=== PATIENT | female | born 1940 | race Caucasian/White ===

== ENCOUNTER 2020-12-11 07:52 | Outpatient (CLI) | payer MEDICARE, SELFPAY ==
--- NOTE | ~2020-12-11 | XR_ITS ---
MODIFIED ESOPHAGRAM HISTORY: Dysphagia. TECHNIQUE: Modified barium esophagram was performed by speech pathologist under radiologist fluorosco pic guidance. This was recorded on tape. The exam was reviewed on 12/11/2020 09:09 CDT. The DAP for this procedure was 1.4 Gycm2. Fluoroscopy time is 2.1 minutes. FINDINGS: Lateral projection of the cervical spine demonstrates normal alignment. There is normal s wallowing function through the oral, pharyngeal and esophageal stage without aspiration or penetratio n.. IMPRESSION: 1: Normal swallowing function without evidence for laryngeal penetration or aspiration. 2: Please refer to speech pathologist report for additional detail. Reviewed, dictated and finalized at location A. IMPRESSION: 1: Normal swallowing function without evidence for laryngeal penetration or asp iration. 2: Please refer to speech pathologist report for additional detail.
--- NOTE | 2020-12-11 09:02 | STOPEVAL ---
MODIFIED BARIUM SWALLOW EVALUATION: Thank you for referring Kristin Townsend to [facility].? Outpatient Past Medical History Past Medical History Source of Past Medical History Patient Respiratory History Hx Asthma Yes Evaluation Information Problem Diagnosis dysphagia Modified Barium Swallow Evaluation Recent Swallowing History Reports Dysphagia Yes: stuff gets caught Onset of Dysphagia several years Duration of Dysphagia it's happened maybe 15 times in 2 years Reported Difficult Consistencies Pills,Solids Intake Method Prior to Swallow Oral Evaluation Diet Prior to Swallow Evaluation Regular, Level 7 Liquid Consistency Prior to Swallow Thin (0) Evaluation Consistency Thin Uncontrolled 2 Method of Presentation Straw Oral Preparatory Symptoms None Oral Phase Symptoms None Pharyngeal Phase Symptoms None Severity of Vallecular Residue None - 0% No Residue Severity of Pyriform Sinus Residue None - 0% No Residue 8 Point Laryngeal Penetration-Aspiration Material Does Not Enter Airway Scale Cervical/Esophageal Symptoms None Solid Consistency Method of Presentation Spoon Oral Preparatory Symptoms None Oral Phase Symptoms None Pharyngeal Phase Symptoms None Severity of Vallecular Residue None - 0% No Residue Severity of Pyriform Sinus Residue None - 0% No Residue 8 Point Laryngeal Penetration-Aspiration Material Does Not Enter Airway Scale Cervical/Esophageal Symptoms None Mixed Consistency Method of Presentation Spoon Oral Preparatory Symptoms None Oral Phase Symptoms None Pharyngeal Phase Symptoms None Severity of Vallecular Residue None - 0% No Residue Severity of Pyriform Sinus Residue None - 0% No Residue 8 Point Laryngeal Penetration-Aspiration Material Does Not Enter Airway Scale Cervical/Esophageal Symptoms None Pureed Consistency Method of Presentation Spoon Oral Preparatory Symptoms None Oral Phase Symptoms None Pharyngeal Phase Symptoms None Severity of Vallecular Residue None - 0% No Residue Severity of Pyriform Sinus Residue None - 0% No Residue 8 Point Laryngeal Penetration-Aspiration Material Does Not Enter Airway Scale Cervical/Esophageal Symptoms None Thin Uncontrolled 1 Method of Presentation Cup Oral Preparatory Symptoms None Oral Phase Symptoms None Pharyngeal Phase Symptoms None Severity of Vallecular Residue None - 0% No Residue Severity of Pyriform Sinus Residue None - 0% No Residue 8 Point Laryngeal Penetration-Aspiration Material Does Not Enter Airway Scale Cervical/Esophageal Symptoms No
== END 2020-12-11 07:53 | disposition home or self-care (01) ==
PROVIDERS: PCP Family Medicine; Visit Provider Otolaryngology
DX: R13.10 Dysphagia, unspecified (principal)
CPT/HCPCS: 92611

== ENCOUNTER 2021-02-05 00:49 | Day surgery (SDC) | payer MEDICARE, SELFPAY ==
[2021-01-22 13:26] VITALS: BMI 26.5
[2021-02-05 09:49] VITALS: BP 168/70; PULSE 83; RESP 20; TEMP 36.2; O2SAT 96; BMI 26.7
[2021-02-05] MEDS: LACTATED RINGERS 1,000 ML 150 ML IV CONT (10:07)
--- NOTE | 2021-02-05 10:12 | WPDANESEPPF ---
Anes - Initial Pre Proc Eval Procedure: Operation Date: 02/05/21 11:00 Proposed Procedures p Esophagogastroduodenoscopy - Fran Donovan MD Date/Time: 02/05/21 10:12 Surgeon: Fran Donovan MD Pre Op Diagnosis: Dysphagia Patient Data Age: 80 Gender: F Height: 1.57 m Weight: 66.3 kg Last Vital Signs Temp 36.2 C L 02/05/21 09:49 Pulse 83 02/05/21 09:49 Resp 20 02/05/21 09:49 BP 168/70 H 02/05/21 09:49 Pulse Ox 96 02/05/21 09:49 Allergies Allergy/AdvReac Type Severity Reaction Status Date / Time kiwi Allergy Unknown Hives Verified 02/05/21 09:47 Penicillins Allergy Unknown Unknown Verified 02/05/21 09:47 Sulfa (Sulfonamide Allergy Unknown Unknown Verified 02/05/21 09:47 Antibiotics) Home Medications Medication Instructions Recorded Confirmed Type montelukast 10 mg tablet 10 mg PO DAILY 09/21/19 01/30/21 History salmeterol 50 mcg/dose blister 1 inhalation INHALATION Q12H 09/21/19 01/30/21 History powder for inhalation tiotropium bromide 18 mcg capsule 1 cap INHALATION DAILY 09/21/19 01/30/21 History with inhalation device fluticasone propionate 44 1 puff INHALATION ONCE 03/17/20 01/30/21 History mcg/actuation HFA aerosol inhaler ibandronate 150 mg tablet See Rx Instructions .ROUTE 09/07/20 01/30/21 Rx .COMPLEX #3 tablet potassium chloride 10 mEq See Rx Instructions .ROUTE 12/02/20 01/30/21 Rx tablet,extended release .COMPLEX #90 tablet albuterol sulfate 90 mcg/actuation 1 inh INHALATION Q4H 01/08/21 01/30/21 History aerosol inhaler tramadol 50 mg tablet 50 mg PO Q6H PRN #20 tablet 01/30/21 01/30/21 Rx hydrochlorothiazide 25 mg tablet See Rx Instructions .ROUTE 02/02/21 Rx .COMPLEX #90 tablet levothyroxine 50 mcg tablet See Rx Instructions .ROUTE 02/02/21 Rx .COMPLEX #90 tablet Patient hx anesthesia problems: none Family hx anesthesia problems: none PMFSH Past Medical History Medical History Essential (primary) hypertension Hyperglycemia Hypokalemia Hypothyroidism, unspecified Mixed hyperlipidemia Postmenopausal Severe persistent asthma without complication Vitamin D deficiency Social History Social History Smoking status: Never smoker Second hand tobacco smoke exposure: No Alcohol intake: never Drinks per week: 20 Alcohol use details: WINE Substance use: never Living arrangements: alone Gender identity (if verbalized by the patient): Female Spiritual care concerns: No Anes - Eval Final PreProcedure Day of Procedure 02/05/21 10:12 Patient weight: overweight Heart: regular rate and rhythm Lungs: clear to auscultation Airway: Mallampati scale class II Neurological: alert and oriented Last oral intake: >/= 8 hours ASA classification: II Emergent: no Anesthetic plan: proceed Anesthesia type and monitoring: general GIVS and standard monitoring Informed Consent: The patient's anesthetic plan and its attendant risks and benefits were discussed with the patient/family/POA. Questions were solicited and answers provided to the satisfaction of the patient/family/POA.
--- NOTE | 2021-02-05 10:22 | WPDHPUPDATE1 ---
History and Physical Update Update Date/Time: 02/05/21 10:22 History and Physical has been reviewed, including an updated exam of the patient. There are NO changes in the patient's condition. Risks, benefits, and alternatives have been discussed and questions answered. Patient agrees to proceed with procedure.
[2021-02-05 11:05] VITALS: BP 127/58; PULSE 74; RESP 20; O2SAT 96
[2021-02-05 11:15] VITALS: BP 137/67; PULSE 68; RESP 14; O2SAT 97
[2021-02-05 11:25] VITALS: BP 149/70; PULSE 73; RESP 19; O2SAT 97
--- NOTE | 2021-02-05 11:34 | SUR.PHASEII ---
Called pt's emergency detail driver Juliana, made aware pt is ready for discharge. Humidifier Maintenance Worker Joan states she will be here in 30 minutes. States she was not called and notified that procedure was completed. Instructed Juliana to pull beneath green awning and call GI post op number when she arrives. Douglas Cole RN 02/05/21 [id number]
== END 2021-02-05 12:13 | disposition home or self-care (01) ==
PROVIDERS: PCP Family Medicine; Visit Provider Internal Medicine Gastroenterology
PROC: 0DJ08ZZ Inspection of Upper Intestinal Tract, Via Natural or Artificial Opening Endoscopic (ICD-10-PCS; CPT 43235; principal; 2021-02-05 11:00)
DX: K22.2 Esophageal obstruction (principal); K22.70 Barrett's esophagus without dysplasia; I10 Essential (primary) hypertension; E03.9 Hypothyroidism, unspecified; E78.2 Mixed hyperlipidemia; E55.9 Vitamin D deficiency, unspecified; J45.50 Severe persistent asthma, uncomplicated; Z79.51 Long term (current) use of inhaled steroids
CPT/HCPCS: 43450; 88305; J2704; J7120

== ENCOUNTER 2021-05-04 00:58 | Day surgery (SDC) | payer MEDICARE, SELFPAY ==
[2021-04-13 14:34] VITALS: BMI 26.2
[2021-05-04 09:18] VITALS: BP 155/71; PULSE 91; RESP 16; TEMP 36.8; O2SAT 94
--- NOTE | 2021-05-04 09:30 | WPDGICN ---
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 Plan is for follow-up EGD at 5 year intervals. Long-term use of PPI advised. Anti-reflux measures should continue. Follow-up EGD at this time because of dysphagia. Previous stricture only dilated to 38 [place] hopefully can be made larger. (2) Dysphagia: Code(s): R13.10 - Dysphagia, unspecified Status: Acute Assessment and Plan: Patient had esophageal stricture. Plan is for EGD at this time to dilate further. (3) History of colon polyps: Code(s): Z86.010 - Personal history of colonic polyps Status: Acute Assessment and Plan: Follow-up colonoscopy the 5 year intervals is advised. GI Consult Note Consult date/time: 05/04/21 09:30 HPI: Kristin Townsend is a 81 year old female Presents for follow-up EGD. Patient has a history of esophageal stricture ring and Montoya's esophagus. Most recent EGD on 02/05/2021 she was dilated to 38 Bah[place] size. She states she is swallowing much better at present. She continues to be cautious with meats and large pieces of food. Family history is noncontributory. She denies any heartburn at present. Review of Systems Review of Systems: All systems reviewed & are unremarkable except as noted in HPI and below PMFSH Past Medical History Medical History (Updated 05/04/21 @ 09:32 by Fran Donovan MD) Essential (primary) hypertension Hyperglycemia Hypokalemia Hypothyroidism, unspecified Mixed hyperlipidemia Postmenopausal Severe persistent asthma without complication Vitamin D deficiency Social History Social History Smoking status: Former smoker Tobacco type: cigarettes Second hand tobacco smoke exposure: No Alcohol intake: current Drinks per week: 14 Alcohol use details: WINE Substance use: current Substance use type: marijuana Other substance usage details: OCCASIONALLY Living arrangements: alone Gender identity (if verbalized by the patient): Female Spiritual care concerns: No Meds Home Medications and Allergies Home Medications Medication Instructions Recorded Confirmed Type montelukast 10 mg tablet 10 mg PO DAILY 09/21/19 04/13/21 History salmeterol 50 mcg/dose blister 1 inhalation INHALATION Q12H 09/21/19 04/13/21 History powder for inhalation tiotropium bromide 18 mcg capsule 1 cap INHALATION DAILY 09/21/19 04/13/21 History with inhalation device fluticasone propionate 44 1 puff INHALATION ONCE 03/17/20 04/13/21 History mcg/actuation HFA aerosol inhaler albuterol sulfate 90 mcg/actuation 1 inh INHALATION Q4H 01/08/21 04/13/21 History aerosol inhaler hydrochlorothiazide 25 mg PO DAILY 04/13/21 04/13/21 History ibandronate 150 mg PO MONTHLY 04/13/21 04/13/21 History levothyroxine [Euthyrox] 50 mcg PO DAILY 04/13/21 04/13/21 History potassium chloride 10 meq PO DAILY 04/13/21 04/13/21 History Allergies Allergy/AdvReac Type Severity Reaction Status Date / Time kiwi Allergy Unknown Hives Verified 05/04/21 09:17 Penicillins Allergy Unknown Unknown Verified 05/04/21 09:17 Sulfa (Sulfonamide Allergy Unknown Unknown Verified 05/04/21 09:17 Antibiotics) Vital Signs Vital Signs - 24 hr 05/04/21 09:18 Temperature 98.2 F Pulse Rate 91 Respiratory Rate 16 Blood Pressure 155/71 H Pulse Oximetry 94 Exam Narrative: Physical exam reveals patient be alert. Vital signs stable. HEENT exam is unremarkable. Patient is anicteric. Lungs are clear to auscultation and percussion. Heart is without murmur or extra sounds. Abdominal exam bowel sounds are present soft nontender with no organomegaly.
[2021-05-04] MEDS: LACTATED RINGERS 1,000 ML 150 ML IV CONT (09:36)
--- NOTE | 2021-05-04 09:40 | WPDANESEPPF ---
Anes - Initial Pre Proc Eval Procedure: Operation Date: 05/04/21 10:15 Proposed Procedures p Esophagogastroduodenoscopy - Fran Donovan MD Date/Time: 05/04/21 09:40 Surgeon: Fran Donovan MD Pre Op Diagnosis: esophageal stricture Patient Data Age: 81 Gender: F Height: 1.6 m Weight: 67 kg Last Vital Signs Temp 36.8 C 05/04/21 09:18 Pulse 91 05/04/21 09:18 Resp 16 05/04/21 09:18 BP 155/71 H 05/04/21 09:18 Pulse Ox 94 05/04/21 09:18 Allergies Allergy/AdvReac Type Severity Reaction Status Date / Time kiwi Allergy Unknown Hives Verified 05/04/21 09:17 Penicillins Allergy Unknown Unknown Verified 05/04/21 09:17 Sulfa (Sulfonamide Allergy Unknown Unknown Verified 05/04/21 09:17 Antibiotics) Home Medications Medication Instructions Recorded Confirmed Type montelukast 10 mg tablet 10 mg PO DAILY 09/21/19 05/04/21 History salmeterol 50 mcg/dose blister 1 inhalation INHALATION Q12H 09/21/19 05/04/21 History powder for inhalation tiotropium bromide 18 mcg capsule 1 cap INHALATION DAILY 09/21/19 05/04/21 History with inhalation device fluticasone propionate 44 1 puff INHALATION ONCE 03/17/20 05/04/21 History mcg/actuation HFA aerosol inhaler albuterol sulfate 90 mcg/actuation 1 inh INHALATION Q4H 01/08/21 05/04/21 History aerosol inhaler hydrochlorothiazide 25 mg PO DAILY 04/13/21 05/04/21 History ibandronate 150 mg PO MONTHLY 04/13/21 05/04/21 History levothyroxine [Euthyrox] 50 mcg PO DAILY 04/13/21 05/04/21 History potassium chloride 10 meq PO DAILY 04/13/21 05/04/21 History Patient hx anesthesia problems: none Family hx anesthesia problems: none Results Review: All pre-operative results and documents have been reviewed as part of the pre-operative evaluation. [facility] Past Medical History Medical History Essential (primary) hypertension Hyperglycemia Hypokalemia Hypothyroidism, unspecified Mixed hyperlipidemia Postmenopausal Severe persistent asthma without complication Vitamin D deficiency Social History Social History Smoking status: Former smoker Tobacco type: cigarettes Second hand tobacco smoke exposure: No Alcohol intake: current Drinks per week: 14 Alcohol use details: WINE Substance use: current Substance use type: marijuana Other substance usage details: OCCASIONALLY Living arrangements: alone Gender identity (if verbalized by the patient): Female Spiritual care concerns: No Anes - Eval Final PreProcedure Day of Procedure 05/04/21 09:40 Patient weight: overweight Heart: regular rate and rhythm Lungs: clear to auscultation Airway: Mallampati scale class II Neurological: alert and oriented Last oral intake: >/= 8 hours ASA classification: II Emergent: no Anesthetic plan: proceed Anesthesia type and monitoring: general GIVS and standard monitoring Results Review: All pre-operative results and documents have been reviewed as part of the pre-operative evaluation. Informed Consent: The patient's anesthetic plan and its attendant risks and benefits were discussed with the patient/family/POA. Questions were solicited and answers provided to the satisfaction of the patient/family/POA.
[2021-05-04 10:08] VITALS: BP 139/68; PULSE 77; RESP 16; O2SAT 90
[2021-05-04 10:18] VITALS: BP 129/65; PULSE 68; RESP 16; O2SAT 99
[2021-05-04 10:28] VITALS: BP 133/65; PULSE 69; RESP 16; O2SAT 100
== END 2021-05-04 10:41 | disposition home or self-care (01) ==
PROVIDERS: PCP Family Medicine; Visit Provider Internal Medicine Gastroenterology
PROC: 0DJ08ZZ Inspection of Upper Intestinal Tract, Via Natural or Artificial Opening Endoscopic (ICD-10-PCS; CPT 43235; principal; 2021-05-04 10:15)
DX: R13.10 Dysphagia, unspecified (principal); K22.70 Barrett's esophagus without dysplasia; K22.2 Esophageal obstruction; E03.9 Hypothyroidism, unspecified; Z79.51 Long term (current) use of inhaled steroids; I10 Essential (primary) hypertension; E55.9 Vitamin D deficiency, unspecified; E78.2 Mixed hyperlipidemia; E87.6 Hypokalemia; J45.909 Unspecified asthma, uncomplicated; Z87.891 Personal history of nicotine dependence; F12.90 Cannabis use, unspecified, uncomplicated; Z86.010 Personal history of colon polyps
CPT/HCPCS: 43239; 43450; 88305; J2704; J7120

== ENCOUNTER 2022-07-12 12:55 | Outpatient (CLI) | payer MEDICARE, SELFPAY ==
--- NOTE | ~2022-07-12 | DEXA_ITS ---
Bone Density Report Name: BRIGID RITTER Age: 82 Sex: Female Ethnicity: White Date of : 1940 Indication: postmenopausal; screening for osteoporosis; height loss; cancer; asthma or emphysema; hysterectomy; Referring Provider: MASTER LUNDBERG Study: Bone densitometry was performed. Exam Date: July 12, 2022 Accession number: [id number] Bone Density: Region BMD T-score Z-score Classification AP Spine(L1-L4) 0.748 -2.7 0.0 Osteoporosis Femoral Neck (Left) 0.612 -2.1 0.2 Osteopenia Total Hip (Left) 0.658 -2.3 -0.3 Osteopenia Femoral Neck (Right) 0.619 -2.1 0.2 Osteopenia Total Hip (Right) 0.703 -2.0 0.1 Osteopenia Total Hip Mean 0.680 -2.2 -0.1 Osteopenia World Health Organization criteria for BMD impression classify patients as: Normal (T-score at or above -1.0), Osteopenia (T-score between -1.0 and -2.5), or Osteoporosis (T-score at or below -2.5). 10-year Fracture Risk: FRAX not reported because: Some T-score for Spine Total or Hip Total or Femoral Neck at or below -2.5 Clinical Information Provided by Patient: Has used the following medications: HRT (i.e. estrogen/hormone therapy), Vitamin D, Calcium, Multivitamin Has the following medical conditions: Asthma or Emphysema, Cancer, Hysterectomy Patient maximum height was 64 Menopause Age: 35 No regular weight bearing exercise Drinks caffeinated beverages Onset of menses at age 16 Number of children 2 Impression: The patient has osteoporosis, based on the Total Spine T-score. Discussion: INCREASED RISK OF FRACTURE. BONE DENSITY IS UNDESIRABLY LOW AT ONE OR MORE SKELETAL SITES, CONSISTENT WITH POSTMENOPAUSAL OSTEOPOROSIS. This patient's lowest T-score meets the World Health Organization's (WHO) criteria for osteoporosis at one or more sites (T-score -2.5 or below). In untreated patients, the risk of osteoporotic fracture increases approximately two-fold for each 1.0 SD decrease in T-score. Low bone density is not the only risk factor for fracture; also consider factors such as patient's age, frailty or poor health, risk of falling, risk of injury, previous osteoporotic fracture, family history of osteoporosis, cigarette smoking, low body weight, etc. Not everyone with low bone mineral density has osteoporosis; osteomalacia and other metabolic bone disorders should also be considered. Patients who have osteoporosis should be evaluated for specific diseases and conditions (secondary causes) that may cause or contribute to bone loss. The [place] [employer]ocrinologists (AACE) and National Osteoporosis Foundation (NOF) recommend pharmacologic intervention for all postmenopausal women whose T-score is in this range. The patient should follow a healthful lifestyle (good nutrition with adequate calcium and vitamin D, and appr
== END 2022-07-12 12:56 | disposition home or self-care (01) ==
LOC: ANHIMG 12:58
PROVIDERS: PCP Family Medicine; Visit Provider Family Medicine
DX: Z78.0 Asymptomatic menopausal state (principal); M81.0 Age-related osteoporosis without current pathological fracture; M85.852 Other specified disorders of bone density and structure, left thigh; M85.851 Other specified disorders of bone density and structure, right thigh
CPT/HCPCS: 77080

== ENCOUNTER 2022-10-12 00:54 | Day surgery (SDC) | payer MEDICARE, SELFPAY ==
[2022-10-06 11:34] VITALS: BMI 25.5
--- NOTE | 2022-10-11 13:09 | WPDANESEPPF ---
Anes - Initial Pre Proc Eval Procedure: Operation Date: 10/12/22 11:00 Proposed Procedures p Colonoscopy - Fran Donovan MD Date/Time: 10/11/22 13:09 Surgeon: Fran Donovan MD Pre Op Diagnosis: hx colon polyps Patient Data Age: 82 Gender: F Height: 1.6 m Weight: 65.4 kg Allergies Allergy/AdvReac Type Severity Reaction Status Date / Time kiwi Allergy Unknown Hives Verified 10/12/22 09:55 Penicillins Allergy Unknown Unknown Verified 10/12/22 09:55 Sulfa (Sulfonamide Allergy Unknown Unknown Verified 10/12/22 09:55 Antibiotics) Home Medications Medication Instructions Recorded Confirmed Type montelukast 10 mg tablet 10 mg PO DAILY 09/21/19 10/12/22 History (Singulair) salmeterol 50 mcg/dose blister 1 inhalation inhalation Q12H 09/21/19 10/12/22 History powder for inhalation (Serevent Diskus) tiotropium bromide 18 mcg capsule 1 cap inhalation DAILY 09/21/19 10/12/22 History with inhalation device (Spiriva with HandiHaler) fluticasone propionate 44 4 puff inhalation BID 03/17/20 10/12/22 History mcg/actuation HFA aerosol inhaler (Flovent HFA) albuterol sulfate 90 mcg/actuation 2 inh inhalation BID 01/08/21 10/12/22 History aerosol inhaler levothyroxine 50 mcg tablet 50 mcg PO DAILY #90 tabs 02/05/22 10/12/22 Rx (Euthyrox) omeprazole 20 mg capsule,delayed 20 mg PO DAILY #90 caps 04/22/22 10/12/22 Rx release calcium 550 mg BYMOUTH DAILY 10/08/22 History Patient hx anesthesia problems: none Family hx anesthesia problems: none Results Review: All pre-operative results and documents have been reviewed as part of the pre-operative evaluation. [facility] Past Medical History Medical History (Updated 10/12/22 @ 10:10 by Wilber Arthur DO) Cellulitis COPD (chronic obstructive pulmonary disease) Hyperglycemia Hypokalemia Hypothyroidism, unspecified Moderate persistent asthma without complication MRSA (methicillin resistant staph aureus) culture positive Osteoporosis Postmenopausal Prediabetes Right leg numbness Severe persistent asthma without complication Vitamin D deficiency Social History Social History Smoking status: Former smoker Tobacco type: cigarettes Second hand tobacco smoke exposure: No Alcohol intake: current Drinks per week: 14 Alcohol use details: WINE Substance use: current Substance use type: marijuana Other substance usage details: OCC. Lack of Transportation: No Lack of Food: Never True Current Housing: I Have Housing Concerned About Future Housing: No Difficulty Paying Gas/Electric Bills: No Difficulty Paying for Meds: No Currently Unemployed: No Education: Master's Degree or Higher Difficulty w/ Childcare or Family Care: No Living arrangements: with family Gender identity (if verbalized by the patient): Female Sexual Orientation (if Verbalized by the Patient): Straight or Heterosexual Spiritual care concerns: No Agree to blood products: Yes Anes - Eval Final PreProcedure Day of Procedure 10/11/22 13:09 Patient weight: overweight Heart: regular rate and rhythm Lungs: clear to auscultation Airway: Mallampati scale class II Neurological: alert and oriented Last oral intake: >/= 8 hours ASA classification: III Emergent: no Anesthetic plan: proceed Anesthesia type and monitoring: general GIVS and standard monitoring Results Review: All pre-operative results and documents have been reviewed as part of the pre-operative evaluation. Informed Consent: The patient's anesthetic plan and its attendant risks and benefits were discussed with the patient/family/POA. Questions were solicited and answers provided to the satisfaction of the patient/family/POA.
[2022-10-12 09:45] VITALS: BP 169/78; PULSE 96; RESP 16; TEMP 36.5; O2SAT 94; BMI 24.7
[2022-10-12] MEDS: LACTATED RINGERS 1,000 ML 150 ML IV CONT (10:09)
--- NOTE | 2022-10-12 10:12 | PM.HPGS ---
History of Present Illness History of Present Illness Consent: Risks, benefits, and alternatives have been discussed and questions answered. Patient agrees to proceed with procedure. Chief complaint: hx colon polyps Narrative: Kristin Townsend is a 82 year old female Presents for colonoscopy. Patient has a prior history of colon polyp removed by Dr. Fran Waters in 2017. Patient reports her current weight appetite and bowel movements are normal. She denies abdominal pain. She has had no bleeding. Family history noncontributory. Patient does have a history of Montoya's esophagus most recent EGD 2020. She no longer has difficulty swallowing is doing well. No heartburn. Review of Systems Review of Systems: Review of systems noncontributory. [facility] Past Medical History Medical History (Updated 10/12/22 @ 10:10 by Wilber Arthur DO) Cellulitis COPD (chronic obstructive pulmonary disease) Hyperglycemia Hypokalemia Hypothyroidism, unspecified Moderate persistent asthma without complication MRSA (methicillin resistant staph aureus) culture positive Osteoporosis Postmenopausal Prediabetes Right leg numbness Severe persistent asthma without complication Vitamin D deficiency Social History Social History Smoking status: Former smoker Tobacco type: cigarettes Second hand tobacco smoke exposure: No Alcohol intake: current Drinks per week: 14 Alcohol use details: WINE Substance use: current Substance use type: marijuana Other substance usage details: OCC. Lack of Transportation: No Lack of Food: Never True Current Housing: I Have Housing Concerned About Future Housing: No Difficulty Paying Gas/Electric Bills: No Difficulty Paying for Meds: No Currently Unemployed: No Education: Master's Degree or Higher Difficulty w/ Childcare or Family Care: No Living arrangements: with family Gender identity (if verbalized by the patient): Female Sexual Orientation (if Verbalized by the Patient): Straight or Heterosexual Spiritual care concerns: No Agree to blood products: Yes Meds Home Medications and Allergies Home Medications Medication Instructions Recorded Confirmed Type montelukast 10 mg tablet 10 mg PO DAILY 09/21/19 10/12/22 History (Cadence) salmeterol 50 mcg/dose blister 1 inhalation inhalation Q12H 09/21/19 10/12/22 History powder for inhalation (Serevent Diskus) tiotropium bromide 18 mcg capsule 1 cap inhalation DAILY 09/21/19 10/12/22 History with inhalation device (Spiriva with HandiHaler) fluticasone propionate 44 4 puff inhalation BID 03/17/20 10/12/22 History mcg/actuation HFA aerosol inhaler (Flovent HFA) albuterol sulfate 90 mcg/actuation 2 inh inhalation BID 01/08/21 10/12/22 History aerosol inhaler levothyroxine 50 mcg tablet 50 mcg PO DAILY #90 tabs 02/05/22 10/12/22 Rx (Euthyrox) omeprazole 20 mg capsule,delayed 20 mg PO DAILY #90 caps 04/22/22 10/12/22 Rx release calcium 550 mg BYMOUTH DAILY 10/08/22 History Allergies Allergy/AdvReac Type Severity Reaction Status Date / Time kiwi Allergy Unknown Hives Verified 10/12/22 09:55 Penicillins Allergy Unknown Unknown Verified 10/12/22 09:55 Sulfa (Sulfonamide Allergy Unknown Unknown Verified 10/12/22 09:55 Antibiotics) Vital Signs Vital Signs - 24 hr 10/12/22 09:45 Temperature 97.7 F Pulse Rate 96 Respiratory Rate 16 Blood Pressure 169/78 H Pulse Oximetry 94 Oxygen Delivery Room Air Exam Narrative: Physical exam reveals patient to be alert. Vital signs stable. HEENT exam is unremarkable. Patient is anicteric. Lungs are clear to auscultation and percussion. Heart is without murmur or extra sounds. Abdomen bowel sounds present soft nontender with no organomegaly. Digital external rectal exam normal. Assessment and Plan Assessment and plan (1) History of colon polyps:
[2022-10-12 10:59] VITALS: BP 145/93; PULSE 97; RESP 28; O2SAT 96
[2022-10-12 11:09] VITALS: BP 147/72; PULSE 90; RESP 24; O2SAT 96
[2022-10-12 11:19] VITALS: BP 143/63; PULSE 83; RESP 20; O2SAT 97
== END 2022-10-12 11:26 | disposition home or self-care (01) ==
PROVIDERS: PCP Family Medicine; Visit Provider Internal Medicine Gastroenterology
PROC: 0DJD8ZZ Inspection of Lower Intestinal Tract, Via Natural or Artificial Opening Endoscopic (ICD-10-PCS; CPT 45378; principal; 2022-10-12 11:00)
DX: Z12.11 Encounter for screening for malignant neoplasm of colon (principal); K64.8 Other hemorrhoids; K57.30 Diverticulosis of large intestine without perforation or abscess without bleeding; Z86.010 Personal history of colon polyps; J44.9 Chronic obstructive pulmonary disease, unspecified; E03.9 Hypothyroidism, unspecified; J45.40 Moderate persistent asthma, uncomplicated; M81.0 Age-related osteoporosis without current pathological fracture; E55.9 Vitamin D deficiency, unspecified; R73.03 Prediabetes; Z87.891 Personal history of nicotine dependence; F12.90 Cannabis use, unspecified, uncomplicated; Z79.51 Long term (current) use of inhaled steroids
CPT/HCPCS: G0105; J2704; J7120

== ENCOUNTER 2022-10-16 17:00 | Inpatient (IN) | payer MEDICARE, SELFPAY ==
[2022-10-16] VITALS (31 sets, daily range): BP systolic 111–173; BP diastolic 66–98; PULSE 97–126; RESP 17–27; TEMP 36.8–37; O2SAT 87–99; BMI 31.1
--- NOTE | ~2022-10-16 | XR_ITS ---
EXAMINATION: XR chest 2V Exam Date/Time: 10/16/2022 17:43 CDT HISTORY: SOB with Wheezing, HX OF ASTHMA Comparison: 08/03/17. RESULT: Lines, tubes, and devices: None. Lungs and pleura: Emphysematous and senescent changes. Bibasilar scar. Cardiomediastinal silhouette: Stable. Calcified left hilar nodes. Other: No acute osseous or upper abdominal finding. IMPRESSION: No acute cardiopulmonary process. Reviewed, dictated and finalized at location K.
--- NOTE | ~2022-10-16 | CT_ITS ---
EXAMINATION: CTA chest PE protocol DATE: 10/16/2022 19:34 INDICATION: tachycardia, SOB TECHNIQUE: Computed tomography angiography (CTA) of the chest was performed with 100 mL Omnipaque-350 intravenous contrast timed to evaluate the pulmonary arteries. Coronal maximum intensity projection 3D-reconstructions were created by the technologist. The dose-length product (DLP) was 265.24 mGy-cm. Automated exposure control and iterative reconstruction technique were employed. COMPARISON: X-ray chest, same date; CT chest 04/26/2019; CTPA 08/03/2017. FINDINGS: Lung parenchyma and airways: Biapical pleural scarring. Subsegmental dependent right scar/rounded ate lectasis. Bibasilar linear scarring. Interval resolution of the previously described right upper lobe pulmonary nodule. Calcified granulomas. Pleura: Unremarkable. Thoracic inlet, axillae and chest wall: Unremarkable. Thoracic aorta: Mild arch calcification. Mediastinum: Normal. Heart and pericardium: Normal. Coronary artery calcifications: Absent. Upper abdomen: No significant finding. Bones: No acute osseous finding. Pulmonary arteries: Study quality: Adequate. No pulmonary emboli detected. IMPRESSION: No CT evidence of acute pulmonary embolus. No acute intrathoracic process detected. Reviewed, dictated and finalized at location K. IMPRESSION: No CT evidence of acute pulmonary embolus. No acute intrathoracic process detec krystyna.
--- NOTE | 2022-10-16 17:04 | ECG_ITS ---
Measurements Intervals [place] Rate: 118 P: 72 NE: 123 QRS: 45 QRSD: 138 T: -32 QT: 339 QTc: 475 Interpretive Statements SINUS TACHYCARDIA LEFT BUNDLE BRANCH BLOCK ABNORMAL ECG NO PREVIOUS ECG AVAILABLE FOR COMPARISON Electronically Signed On 10-17-2022 7:45:38 CDT by Case Oseguera M.D.
--- NOTE | 2022-10-16 17:18 | ED.GENADULT ---
HPI - General Adult General Chief complaint: Shortness of Breath/Dyspnea Stated complaint: SOB History of Present Illness HPI narrative: 82-year-old female with history of asthma presented the emergency department for evaluation of worsening shortness of breath. Patient states over the course of the last few days she has had increased worsening shortness of breath. Patient does have rescue inhalers at home but has not taken any nebulized treatments. Patient denies any associated chest pain. Patient states she is not a smoker. Patient denies any prior history of congestive heart failure. Related Data Home Medications Medication Instructions Recorded Confirmed montelukast 10 mg tablet 10 mg PO DAILY 09/21/19 10/12/22 (Singulair) salmeterol 50 mcg/dose blister 1 inhalation inhalation Q12H 09/21/19 10/12/22 powder for inhalation (Serevent Diskus) tiotropium bromide 18 mcg capsule 1 cap inhalation DAILY 09/21/19 10/12/22 with inhalation device (Spiriva with HandiHaler) fluticasone propionate 44 4 puff inhalation BID 03/17/20 10/12/22 mcg/actuation HFA aerosol inhaler (Flovent HFA) albuterol sulfate 90 mcg/actuation 2 inh inhalation BID 01/08/21 10/12/22 aerosol inhaler calcium 550 mg BYMOUTH DAILY 10/08/22 Allergies Allergy/AdvReac Type Severity Reaction Status Date / Time kiwi Allergy Unknown Hives Verified 10/12/22 09:55 Penicillins Allergy Unknown Unknown Verified 10/12/22 09:55 Sulfa (Sulfonamide Allergy Unknown Unknown Verified 10/12/22 09:55 Antibiotics) Review of Systems Review of Systems: All systems reviewed & are unremarkable except as noted in HPI and below PMFSH Past Medical History Medical History (Updated 10/16/22 @ 22:11 by Delonte Garner MD) Cellulitis COPD (chronic obstructive pulmonary disease) Hyperglycemia Hypokalemia Hypothyroidism, unspecified Moderate persistent asthma without complication MRSA (methicillin resistant staph aureus) culture positive Osteoporosis Postmenopausal Prediabetes Right leg numbness Severe persistent asthma without complication Vitamin D deficiency Social History Social History Smoking status: Former smoker Tobacco type: cigarettes Second hand tobacco smoke exposure: No Alcohol intake: current Drinks per week: 14 Alcohol use details: WINE Substance use: current Substance use type: marijuana Other substance usage details: OCC. Lack of Transportation: No Lack of Food: Never True Current Housing: I Have Housing Concerned About Future Housing: No Difficulty Paying Gas/Electric Bills: No Difficulty Paying for Meds: No Currently Unemployed: No Education: Master's Degree or Higher Difficulty w/ Childcare or Family Care: No Living arrangements: with family Gender identity (if verbalized by the patient): Female Sexual Orientation (if Verbalized by the Patient): Straight or Heterosexual Spiritual care concerns: No Agree to blood products: Yes Exam Narrative: APPEARANCE: Well appearing, no pain, no distress, well-nourished. HEAD: normocephalic, atraumatic. EYES: PERRLA/EOMI, conjunctivae clear. NOSE: Normal no drainage NECK: Supple. No adenopathy, no masses. RESPIRATORY: Airway patent, respirations nonlabored. Decreased lung sounds bilaterally CARDIOVASCULAR: Regular rate and rhythm without murmurs rubs or gallops. ABDOMINAL: Soft, nontender, nondistended, normal bowel sounds MUSCULOSKELETAL: Moves all extremities. Strength/ROM intact, No edema, No calf tenderness. NEURO: Alert. Cranial nerves II through XII intact. Grossly intact female SKIN: Warm, dry. Normal Color Course Course Emergency Course: 82-year-old female history of COPD presented emergency department evaluation of worsening shortness of breath. Patient does have an O2 requirement at this time. Patient had no significant improvement from the nebulized treatment.
[2022-10-16 17:19] LABS: Basophils Percent Auto 0.4 % (0.2-1.2); Hematocrit 50.8 % (37.0-47.0); Hemoglobin 16.5 g/dL (12.0-15.0); Immature Granulocyte Absolute 0.07 K/mm3 (0.00-0.031); Immature Granulocyte Percent A 0.8 % (0-0.5); Lymphocytes Absolute Auto 1.93 K/mm3 (0.9-3.2); Lymphocytes Percent Auto 21.3 % (18.3-44.2); Mean Corpuscular HGB Conc 32.5 g/dl (32-36); Mean Corpuscular Hemoglobin 31.5 pg (26-34); Mean Corpuscular Volume 96.9 fl (80-100); Mean Platelet Volume 9.2 fl (7.4-10.4); Monocytes Absolute Auto 1.1 K/mm3 (0.1-0.6); Monocytes Percent Auto 12.2 % (2.6-8.5); Neutrophils Absolute Auto 5.9 K/mm3 (1.3-6.7); Neutrophils Percent Auto 65.3 % (45.5-73.1); Platelet Count Result 260 k/mm3 (150-375); Red Blood Count 5.24 M/mm3 (4.2-5.4); Red Cell Distribution Width 14.6 % (11.5-14.5); White Blood Count 9.1 K/mm3 (4.5-10.0)
[2022-10-16] MEDS: ALBUTEROL SULFATE NEB 2.5 MG/3 ML INH 5 MG INHALATION (17:28)
[2022-10-16 17:38] LABS: Alanine Aminotransferase 22 U/L (6-35); Albumin Level 4.6 g/dL (3.5-5.1); Alkaline Phosphatase 143 U/L (38-126); Anion Gap 13 mmol/L (8-16); Aspartate Amino Transferase 24 U/L (14-36); Bilirubin,Total 0.6 mg/dL (0.2-1.3); Blood Urea Nitrogen 11 mg/dL (7-17); Carbon Dioxide 27 mmol/L (22-30); Chloride 92 mmol/L (98-107); Estimated CRCL calculation 56 ml/min; Estimated Glomerular Filt Rate > 60; Glucose 161 mg/dL (65-110); Potassium 3.8 mmol/L (3.4-5.0); Sodium 132 mmol/L (137-145)
[2022-10-16] MEDS: SODIUM CHLORIDE 0.9% IV 1,000 ML 500 ML IV CONT (17:47)
[2022-10-16 17:59] LABS: Influenza A QL RT-PCR Negative (Negative); Influenza B QL RT-PCR Negative (Negative); RSV RNA, RT-PCR Negative (Negative); SARS-CoV-2 RNA PCR Negative (Negative)
[2022-10-16] MEDS: methylPREDNISolone SOD SUCC 125 MG VIAL IV PUSH (22:21)
--- NOTE | 2022-10-16 23:00 | PM.IMHP ---
H&P: HPI History of Present Illness Date/Time: 10/16/22 23:00 Chief Complaint: Shortness of breath. Narrative: This is a very pleasant 82-year-old female with asthma who presented to the emergency department via EMS from home for evaluation of shortness of breath. The patient provides the following history. At baseline she does have a cough, mainly in the mornings, and she will get short of breath when walking around the grocery store for extended periods of time or climbing up flights of steps at her home. For the last 3 days however she has become increasingly short of breath on lesser and lesser exertion and she has had significant wheezing. She is on 3 maintenance inhalers at home and she has been using her rescue inhaler quite frequently the last couple of days with lesser and lesser benefit. She is feeling tired and fatigued due to work of breathing and she reports chest tightness, feeling as though she cannot get in a deep breath. She denies fever, chills, sweats, sinus congestion, sore throat, exertional chest pain, pleuritic pain, nausea, vomiting, and diarrhea. Of note she had a colonoscopy earlier this week; there was no mention of aspiration. She was afebrile on arrival to the emergency department and her SpO2 has been in the mid 90s on 2 L nasal cannula. She has been persistently tachycardic and she was sent for CTA of the chest which was negative for pulmonary embolism or acute process. In the ED she was given a nebulizer treatment Solu-Medrol and she is being admitted to the floor with an asthma exacerbation. Review of Systems Review of Systems: Twelve systems were reviewed and are negative for as per HPI. [facility] Past Medical History Medical History (Updated 10/16/22 @ 23:55 by Kylah Cosby PA-C) Asthma Montoya's esophagus Cervical cancer (1975) Gastroesophageal reflux disease History of methicillin resistant Staphylococcus aureus infection Hypothyroidism Osteoporosis Prediabetes Severe persistent asthma without complication Vitamin D deficiency Surgical History Surgical History (Updated 10/16/22 @ 23:40 by Kylah Cosby PA-C) History of appendectomy History of cataract extraction with lens replacement History of colonoscopy with polypectomy History of hysterectomy History of tonsillectomy Family History Family History (Updated 10/16/22 @ 23:40 by Kylah Cosby PA-C) Other Family history non-contributory Social History Social History (Updated 10/16/22 @ 23:41 by Kylah Cosby PA-C) Social History: Surrogate medical decision maker: Hernán Diallo, son. Code status: Full code. Smoking status: Former smoker Tobacco type: cigarettes Second hand tobacco smoke exposure: No Alcohol intake: current Drinks per week: 14 Alcohol use details: WINE Substance use: current Substance use type: marijuana Other substance usage details: OCC. Lack of Transportation: No Lack of Food: Never True Current Housing: I Have Housing Concerned About Future Housing: No Difficulty Paying Gas/Electric Bills: No Difficulty Paying for Meds: No Currently Unemployed: No Education: Master's Degree or Higher Difficulty w/ Childcare or Family Care: No Additional living arrangements comments: Lives alone in [place]. 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 Spiritual care concerns: No Agree to blood products: Yes Meds Home Medications and Allergies Home Medications Medication Instructions Recorded Confirmed Type montelukast 10 mg tablet 10 mg PO DAILY 09/21/19 10/12/22 History (Singulair) salmeterol 50 mcg/dose blister 1 inhalation inhalation Q12H 09/21/19 10/12/22 History powder for inhalation (Serevent Diskus) tiotropium bromide 18 mcg capsule 1 cap inhalation DAILY 09/21/19 10/12/22 History with inhalation device (Spiriva with HandiHaler) fluticasone propionate 44 4 puff inhalation BID 03/17
[2022-10-16] MEDS: LEVALBUTEROL NEB 1.25 MG/3 ML INHALATION (23:05)
[2022-10-16] MEDS: ALBUTEROL SULFATE NEB 2.5 MG/3 ML INH 15 MG INHALATION (23:50)
[2022-10-16] MEDS: IPRATROPIUM BR 0.02% INH SOLN 0.5 MG/2.5 ML VIAL 1.5 MG INHALATION (23:50)
[2022-10-17] VITALS (24 sets, daily range): BP systolic 126–175; BP diastolic 56–85; PULSE 87–126; RESP 18–34; TEMP 36.4–36.8; O2SAT 92–97
[2022-10-17] MEDS: MAGNESIUM SULF 2 GM/WATER 50ML 2 GM/50 ML BAG IVPB (00:01)
[2022-10-17] MEDS: ZOLPIDEM TARTRATE (*CRX) 5 MG TABLET 10 MG PO (00:09)
[2022-10-17] MEDS: LEVALBUTEROL NEB 1.25 MG/3 ML INHALATION ×5 (04:40→20:09)
[2022-10-17] MEDS: IPRATROPIUM BR 0.02% INH SOLN 0.5 MG/2.5 ML VIAL INHALATION ×5 (04:40→20:09)
[2022-10-17] MEDS: SODIUM CHLORIDE 0.9% IV 1,000 ML 250 ML IV CONT (05:04)
[2022-10-17] MEDS: methylPREDNISolone SOD SUCC 125 MG VIAL 60 MG IV PUSH ×3 (05:09→18:41)
[2022-10-17 05:28] LABS: Hematocrit 47.7 % (37.0-47.0); Hemoglobin 15.6 g/dL (12.0-15.0); Mean Corpuscular HGB Conc 32.7 g/dl (32-36); Mean Corpuscular Hemoglobin 31.8 pg (26-34); Mean Corpuscular Volume 97.3 fl (80-100); Mean Platelet Volume 9.5 fl (7.4-10.4); Platelet Count Result 293 k/mm3 (150-375); Red Cell Distribution Width 14.6 % (11.5-14.5); White Blood Count 9.1 K/mm3 (4.5-10.0)
[2022-10-17 05:42] LABS: Anion Gap 9 mmol/L (8-16); Blood Urea Nitrogen 9 mg/dL (7-17); Calcium 8.3 mg/dL (8.4-10.2); Carbon Dioxide 28 mmol/L (22-30); Chloride 94 mmol/L (98-107); Estimated CRCL calculation 86 ml/min; Estimated Glomerular Filt Rate > 60; Glucose 198 mg/dL (65-110); Magnesium 2.4 mg/dL (1.6-2.3); Potassium 4.1 mmol/L (3.4-5.0); Sodium 131 mmol/L (137-145)
[2022-10-17] MEDS: LEVOTHYROXINE SODIUM 50 MCG TABLET PO (05:42)
[2022-10-17 06:15] LABS: Alveolar/Arterial O2 Gradient 10.8 mmHg; Base Excess ABG -2.9 mEq/l (+/-2.0); Fractional Inspired Oxygen 32 %; HCO3 ABG 27.1 mEq/l (22.0-26.0); Oxygen Content ABG 22.1 %vol (16.0-22.0); Oxyhemoglobin 96.9 % THb (90.0-100.0); PO2 ABG 135.1 mmHg (80.0-100.0); PO2 FiO2 Ratio Arterial Blood 4.22 %; Total Hemoglobin 16.1 g/dL (12.0-18.0); pH ABG 7.204 (7.350-7.450)
[2022-10-17 06:16] LABS: Device NASAL CANNULA; Modified Allen's Test Pass; PCO2 ABG 70.3 mmHg (35.0-45.0); Site Drawn RIGHT RADIAL
--- NOTE | 2022-10-17 06:28 | PM.EVENT ---
Event Note Event Note Event Note: Had evaluated the patient and prior to midnight has still a new the patient's baseline as the patient had high potential for decompensation. Nursing staff called me several times during the night and I had made changes to patient's breathing treatments increasing the patient's Xopenex to 1.25 mg. The patient was already on frequent Solu-Medrol dosing and had already received magnesium. The patient does quite anxious. She wanted her home Ambien. She received her home Ambien as without this may help her calmed down and may help her sleep. However despite admit patient remains quite anxious and did not really sleep. In the group reservations coordinator hours the patient began having increased accessory muscle use and tripoding. She had abdominal respirations with intercostal retraction and super clavicular and suprasternal retractions. A stat ABG was performed. I had initially been told that the patient's initial ABG was normal. However the results of the stool that ABG were never released into the medical record and there is no document of with ABG results were in the initial H&P. However on repeat ABG the patient had marked respiratory acidosis with hypercapnia. The patient's PO2 was elevated as nursing staff had reported that the increase the patient's oxygen when she ambulated from the bathroom and dropped her oxygen saturations to 86%. The patient had been turned up to 3 L nasal cannula and her pulse ox was 96% at the time of the ABG. On review of the patient's labs appears that she is chronically polycythemia can I suspect she likely has some chronic hypoxia. She may have been washed out with the increased oxygen resulting in worsening hypercapnic respiratory failure. With the critical ABG a gave orders for BiPAP. My with back to re-evaluate the patient the patient that did seem to be more comfortable on BiPAP respiratory rate was down from 35 down to 26-28. The patient was only pulling tidal volumes of 280-320 on the initial settings of 10/6. I a.m. % bedside adjusted BiPAP settings to 15/5. With these changes the patient's tidal volumes had improved to between 380 and 430. The patient back up rate was set the 26. The patient's heart rate did improve from the 130 to 140 down to the 90s on BiPAP. A timed ABG was ordered for 8:30 a.m. sign-out was provided to the daytime hospitalist. Faint expiratory wheezing right greater than left and accessory muscle use as discussed above. She was mildly diaphoretic and had developed some confusion. Assessment: Acute hypercapnic respiratory failure due to asthma exacerbation Clinical condition: Critical Prognosis: Guarded 55 minutes spent in critical care activities. Multiple episodes of patient evaluation and contact. Plan of care was discussed with the patient in detail. The patient confirmed that she would still want to be intubated if she could not breathe on her own. Due to a high probability of clinically significant, life threatening deterioration, the patient required my highest level of preparedness to intervene emergently and I personally spent this critical care time directly and personally managing the patient. This critical care time included obtaining a history; examining the patient; pulse oximetry; ordering and review of studies; arranging urgent treatment with development of a management plan; evaluation of patient's response to treatment; frequent reassessment; and discussions with other providers. It was exclusive of separately billable procedures and treating other patients and teaching time. Please see Assessment and Plan section and the rest of the note for further information on patient assessment and treatment.
[2022-10-17] MEDS: CALCIUM CARBONATE (OSCAL) 500 MG TABLET 1000 MG PO (08:28)
[2022-10-17] MEDS: PANTOPRAZOLE 40 MG TABLET PO (08:29)
[2022-10-17] MEDS: guaiFENesin 12 HR 600 MG TABCR PO ×2 (08:29→20:54)
[2022-10-17] MEDS: MONTELUKAST SODIUM 10 MG TABLET PO (08:29)
[2022-10-17 09:13] LABS: Carboxyhemoglobin 0.3 % THb (0-2.0); Fractional Inspired Oxygen 30 %; HCO3 ABG 22.3 mEq/l (22.0-26.0); Methemoglobin ABG 0.3 %THb (0-1.5); Oxygen Content ABG 21.5 %vol (16.0-22.0); Oxygen Saturation ABG 99.1 % (95.0-100.0); Oxyhemoglobin 98.1 % THb (90.0-100.0); PCO2 ABG 41.1 mmHg (35.0-45.0); PO2 ABG 167.9 mmHg (80.0-100.0); Reduced Hemoglobin 1.3 %THb (0-5.0); Total Hemoglobin 15.4 g/dL (12.0-18.0); pH ABG 7.353 (7.350-7.450)
[2022-10-17 09:14] LABS: Device NON-INVASIVE VENT; Modified Allen's Test Pass; Non-Invasive Expiratory Pressure 5 CMH2O; Non-Invasive Inspiratory Pressure 15 CMH2O; Non-Invasive Vent Rate 24 /MIN; Site Drawn RIGHT RADIAL
--- NOTE | 2022-10-17 09:14 | PC.NURSE ---
This patient, Kristin Townsend, was received from [facility] on 10/17/22 at 0914. Patient/family oriented to unit policies and routines.
[2022-10-17] MEDS: DORNASE ALFA INH SOLN 1 MG/ML 2.5 ML AMP 2.5 MG INHALATION (11:31)
--- NOTE | 2022-10-17 11:53 | PM.IMPN ---
Progress Note: A&P Assessment and Plan (1) Asthma exacerbation: Code(s): J45.901 - Unspecified asthma with (acute) exacerbation Status: Acute Assessment and Plan: Continue nebulizer, steroids. Continue azithromycin BiPAP as needed. Will repeat ABG. (2) Polycythemia: Code(s): D75.1 - Secondary polycythemia Status: Acute Assessment and Plan: She likely has chronic hypoxia. Will need a home O2 evaluation prior to discharge. ABG pending. (3) Hypothyroidism: Code(s): E03.9 - Hypothyroidism, unspecified Status: Acute Assessment and Plan: Continue levothyroxine and check TSH. (4) Gastroesophageal reflux disease: Code(s): K21.9 - Gastro-esophageal reflux disease without esophagitis Status: Acute Assessment and Plan: Continue PPI. Subjective Date/time seen: 10/17/22 11:53 No complaints Breathing is improved Exam Narrative: General: Moderately ill-appearing female sitting up in bed. Weight: 61.3 kg. BMI: 25.5. HEENT: Normocephalic, atraumatic. PERRL, EOMI. Sclera anicteric. Oral mucosa moist. Neck: Supple. No JVD or lymphadenopathy. Respiratory: Mildly tachypneic, speaking in 5 to 6 word sentences. Demonstrates occasional pursed lip breathing. Some accessory muscle use although she does not appear in impending respiratory distress. Lung sounds are significantly diminished throughout with tight, diffuse, prolonged and expiratory wheezing. Cardiovascular: Tachycardic with S1-S2. Gastrointestinal: Abdomen is soft, nontender, and nondistended with positive bowel sounds. Skin: Warm and dry. No rash or lesions on limited exam. Extremities: No cyanosis, clubbing, or edema. Radial and pedal pulses intact. Neurological: Alert. Cranial nerves 2-12 are grossly intact. No gross focal deficits to casual conversation. Psychiatric: Pleasant and cooperative with normal mood and affect. Judgment and insight intact. Objective Data Vital Signs Vital Signs: Vital Signs - 24 hr 10/16/22 17:05 10/16/22 17:08 10/16/22 17:30 Temperature 98.3 F Pulse Rate 123 H 121 H 115 H Respiratory Rate 23 H 19 Blood Pressure 173/76 H Pulse Oximetry 93 Oxygen Delivery Room Air Oxygen Flow Rate Fraction of Inspired Oxygen 10/16/22 18:16 10/16/22 18:16 10/16/22 17:10 Temperature Pulse Rate 115 H 118 H Respiratory Rate 25 H 26 H Blood Pressure 164/67 H Pulse Oximetry 90 92 91 Oxygen Delivery Nasal Cannula Oxygen Flow Rate 2 Fraction of Inspired Oxygen 10/16/22 17:15 10/16/22 17:35 10/16/22 17:55 Temperature Pulse Rate 126 H 112 H 124 H Respiratory Rate 21 H 22 H 21 H Blood Pressure Pulse Oximetry 94 99 87 L Oxygen Delivery Oxygen Flow Rate Fraction of Inspired Oxygen 10/16/22 18:00 10/16/22 18:17 10/16/22 18:30 Temperature Pulse Rate 123 H 115 H 110 H Respiratory Rate 22 H 23 H 19 Blood Pressure Pulse Oximetry 90 93 94 Oxygen Delivery Oxygen Flow Rate Fraction of Inspired Oxygen 10/16/22 18:32 10/16/22 18:45 10/16/22 19:02 Temperature Pulse Rate 110 H 107 H 109 H Respiratory Rate 21 H 22 H 22 H Blood Pressure 111/98 H 122/78 Pulse Oximetry 94 94 95 Oxygen Delivery Oxygen Flow Rate Fraction of Inspired Oxygen 10/16/22 19:03 10/16/22 19:17 10/16/22 19:36 Temperature Pulse Rate 109 H 116 H 113 H Respiratory Rate 21 H 26 H 26 H Blood Pressure 140/76 Pulse Oximetry 96 88 L 96 Oxygen Delivery Oxygen Flow Rate Fraction of Inspired Oxygen 10/16/22 19:54 10/16/22 19:59 10/16/22 20:00 Temperature Pulse Rate 107 H 102 H 103 H Respiratory Rate 24 H 25 H 25 H Blood Pressure 140/75 Pulse Oximetry 93 98 97 Oxygen Delivery Oxygen Flow Rate Fraction of Inspired Oxygen 10/16/22 20:15 10/16/22 20:48 10/16/22 21:00 Temperature Pulse Rate 101 H 110 H 102 H Respiratory Rate 22 H 26 H 17 Blood Pressure Pulse
[2022-10-17 16:59] LABS: Alveolar/Arterial O2 Gradient 32.1 mmHg; Base Excess ABG 2.8 mEq/l (+/-2.0); Carboxyhemoglobin 0.3 % THb (0-2.0); Fractional Inspired Oxygen 21 %; HCO3 ABG 27.6 mEq/l (22.0-26.0); Methemoglobin ABG 0.2 %THb (0-1.5); Oxygen Content ABG 20.5 %vol (16.0-22.0); Oxygen Saturation ABG 93.3 % (95.0-100.0); Oxyhemoglobin 92.9 % THb (90.0-100.0); PCO2 ABG 43.3 mmHg (35.0-45.0); PO2 ABG 65.8 mmHg (80.0-100.0); PO2 FiO2 Ratio Arterial Blood 3.13 %; Reduced Hemoglobin 6.6 %THb (0-5.0); Total Hemoglobin 15.7 g/dL (12.0-18.0); pH ABG 7.423 (7.350-7.450)
[2022-10-17 17:00] LABS: Device ROOM AIR; Modified Allen's Test Pass; Site Drawn RIGHT RADIAL
--- NOTE | 2022-10-17 20:31 | PCRCNOTE ---
Pt has refused to use BIPAP tonight. Also Pt refused to take midnight neb treatment.
[2022-10-17] MEDS: LORazepam INJ (*CRX) 2 MG/ML VIAL 1 MG IV PUSH (21:51)
[2022-10-18] VITALS (25 sets, daily range): BP systolic 143–169; BP diastolic 61–87; PULSE 79–132; RESP 16–36; TEMP 36.4–37.1; O2SAT 93–99
--- NOTE | 2022-10-18 00:36 | PCRCNOTE ---
Pt sats dropped during sleep. PT now wearing BIPAP.
[2022-10-18] MEDS: methylPREDNISolone SOD SUCC 125 MG VIAL 60 MG IV PUSH ×3 (01:36→18:26)
[2022-10-18] MEDS: LEVALBUTEROL NEB 1.25 MG/3 ML INHALATION ×5 (03:27→20:00)
[2022-10-18] MEDS: IPRATROPIUM BR 0.02% INH SOLN 0.5 MG/2.5 ML VIAL INHALATION ×5 (03:27→20:00)
[2022-10-18 03:50] LABS: Base Excess ABG 0.1 mEq/l (+/-2.0); Fractional Inspired Oxygen 28 %; HCO3 ABG 27.5 mEq/l (22.0-26.0); Oxygen Content ABG 22.6 %vol (16.0-22.0); Oxyhemoglobin 97.9 % THb (90.0-100.0); PCO2 ABG 54.7 mmHg (35.0-45.0); PO2 ABG 170.3 mmHg (80.0-100.0); PO2 FiO2 Ratio Arterial Blood 6.08 %; Total Hemoglobin 16.2 g/dL (12.0-18.0); pH ABG 7.319 (7.350-7.450)
[2022-10-18 03:51] LABS: Device NASAL CANNULA; Modified Allen's Test Pass; Site Drawn RIGHT RADIAL
[2022-10-18] MEDS: LEVOTHYROXINE SODIUM 50 MCG TABLET PO (06:23)
[2022-10-18] MEDS: FLUTICASONE PROP 220 MCG (*SP) 12 GM INHALER 4 PUFF INHALATION ×2 (07:29→20:00)
[2022-10-18] MEDS: PANTOPRAZOLE 40 MG TABLET PO (09:24)
[2022-10-18] MEDS: MONTELUKAST SODIUM 10 MG TABLET PO (09:24)
[2022-10-18] MEDS: CALCIUM CARBONATE (OSCAL) 500 MG TABLET 1000 MG PO (09:24)
[2022-10-18] MEDS: guaiFENesin 12 HR 600 MG TABCR PO ×2 (09:24→21:23)
--- NOTE | 2022-10-18 11:41 | PM.IMPN ---
Progress Note: A&P Assessment and Plan (1) Asthma exacerbation: Code(s): J45.901 - Unspecified asthma with (acute) exacerbation Status: Acute Assessment and Plan: Continue nebulizer, steroids. Will decrease her steroids as she reports that she has having some anxiety and can't sleep. Continue azithromycin BiPAP as needed. ABG noted CT chest noted Pulmonary consult (2) Polycythemia: Code(s): D75.1 - Secondary polycythemia Status: Acute Assessment and Plan: She likely has chronic hypoxia. Will need a home O2 evaluation prior to discharge. ABG noted (3) Hypothyroidism: Code(s): E03.9 - Hypothyroidism, unspecified Status: Acute Assessment and Plan: Continue levothyroxine and check TSH. (4) Gastroesophageal reflux disease: Code(s): K21.9 - Gastro-esophageal reflux disease without esophagitis Status: Acute Assessment and Plan: Continue PPI. Subjective Date/time seen: 10/18/22 11:41 Breathing is better. ABG noted. Exam Narrative: General: Moderately ill-appearing female sitting up in bed. Weight: 61.3 kg. BMI: 25.5. HEENT: Normocephalic, atraumatic. PERRL, EOMI. Sclera anicteric. Oral mucosa moist. Neck: Supple. No JVD or lymphadenopathy. Respiratory: Mildly tachypneic, speaking in 5 to 6 word sentences. Demonstrates occasional pursed lip breathing. Some accessory muscle use although she does not appear in impending respiratory distress. Lung sounds are significantly diminished throughout with tight, diffuse, prolonged and expiratory wheezing. Cardiovascular: Tachycardic with S1-S2. Gastrointestinal: Abdomen is soft, nontender, and nondistended with positive bowel sounds. Skin: Warm and dry. No rash or lesions on limited exam. Extremities: No cyanosis, clubbing, or edema. Radial and pedal pulses intact. Neurological: Alert. Cranial nerves 2-12 are grossly intact. No gross focal deficits to casual conversation. Psychiatric: Pleasant and cooperative with normal mood and affect. Judgment and insight intact. Objective Data Vital Signs Vital Signs: Vital Signs - 24 hr 10/17/22 12:00 10/17/22 12:00 10/17/22 14:00 Temperature 98.1 F Pulse Rate 105 H 91 Respiratory Rate 29 H Blood Pressure 137/60 Pulse Oximetry 95 Oxygen Delivery Room Air Oxygen Flow Rate Fraction of Inspired Oxygen 10/17/22 16:00 10/17/22 14:00 10/17/22 16:00 Temperature Pulse Rate 105 H 90 Respiratory Rate Blood Pressure Pulse Oximetry Oxygen Delivery Room Air Oxygen Flow Rate Fraction of Inspired Oxygen 10/17/22 16:40 10/17/22 16:52 10/17/22 16:00 Temperature 98.2 F Pulse Rate 89 87 89 Respiratory Rate 18 18 20 Blood Pressure 137/63 Pulse Oximetry 93 Oxygen Delivery Oxygen Flow Rate Fraction of Inspired Oxygen 10/17/22 18:00 10/17/22 19:54 10/17/22 20:13 Temperature 97.9 F Pulse Rate 109 H 96 95 Respiratory Rate 20 18 Blood Pressure 141/62 H Pulse Oximetry 92 Oxygen Delivery Oxygen Flow Rate Fraction of Inspired Oxygen 10/17/22 20:13 10/17/22 20:20 10/17/22 20:00 Temperature Pulse Rate 97 Respiratory Rate 18 Blood Pressure Pulse Oximetry 93 Oxygen Delivery Room Air Room Air Oxygen Flow Rate Fraction of Inspired Oxygen 21 10/17/22 20:00 10/17/22 23:06 10/18/22 00:35 Temperature 97.6 F Pulse Rate 89 97 Respiratory Rate 22 H 32 H Blood Pressure 126/56 L Pulse Oximetry 94 99 Oxygen Delivery BiPAP Oxygen Flow Rate Fraction of Inspired Oxygen 10/17/22 22:00 10/18/22 00:00 10/18/22 00:00 Temperature Pulse Rate 104 H 132 H Respiratory Rate Blood Pressure Pulse Oximetry Oxygen Delivery BiPAP Oxygen Flow Rate Fraction of Inspired Oxygen 10/18/22 03:42 10/18/22 03:38 10/18/22 02:00 Temperature 97.5 F L Pulse Rate 124 H 79 Respiratory Rate 36 H 24 H Blood Pressure 169/8
--- NOTE | 2022-10-18 13:14 | PM.CNPUL ---
Assessment and Plan Assessment and plan (1) Asthma exacerbation: Code(s): J45.901 - Unspecified asthma with (acute) exacerbation Status: Acute Assessment and Plan: This 82-year-old female has a history of chronic obstructive airway disease. according to her roofing apprentice at [facility], she has had COPD with bronchiectasis, both pre dated by asthma. Previous available spirometry showed a very low FEV1 of 0.8 L or 42% predicted in 2019. It is unclear whether her airway obstruction is fixed as there was no post bronchodilator measurement. The patient has had long history of COPD exacerbations for which she had been on oral steroid bursts and also history of hospitalizations related to COPD exacerbation approximately 4 years ago. Over the last 4 years her chronic obstructive airway disease has been controlled with relatively high dose of ICS, Laba, Lama and Singulair. CBC 3 months ago showed eosinophilic count of approximately 260. On older testing, eosinophils were more than 400 in 2017 and more than 250 in 2014. it is unclear whether the patient had workup for other conditions like ABPA or non cystic fibrosis bronchiectasis. patient continues to have shortness of breath and expiratory wheezing on physical exam. Plan: agree with IV steroids Zithromax nebulized short-acting bronchodilators. Sputum culture pending. MRSA screening ordered. Will consider BiPAP support p.r.n.. Start patient on DVT prophylaxis. will follow along with you. (2) Bronchiectasis: Code(s): J47.9 - Bronchiectasis, uncomplicated Status: Acute History of Present Illness History of Present Illness Consult date: 10/18/22 Chief complaint: COPD exacerbation Narrative: This 82-year-old female with a history of chronic obstructive airway disease presented with increasing shortness of breath cough and wheezing. The patient has had chronic obstructive airway disease which according to medical records from her previous roofing apprentice at [facility] is COPD and bronchiectasis, pre dated by asthma. The patient has had history of respiratory symptoms for more than 40 years and has been on multiple medications for her chronic obstructive airway disease. In the past she had been on steroids but not until over the last 4 years. She has been on a relatively high dose of Flovent 44 mcg 4 puffs twice daily, Spiriva albuterol Serevent and Singulair. The last time she was on steroids was more than 4 years ago. She has history of a serious hospitalizations related to COPD exacerbation more than 4 years ago. Patient was in he usual state of health until several days prior to this hospitalization when she started to to have a worsening of her chronic shortness of breath more cough wheezing. She called her roofing apprentice for oral steroid burst and received prednisone 40 mg for 2 days prior to this admission. On this evaluation, chest CT showed no evidence of pulmonary emboli. She had diffuse bronchiectasis but no active lung disease. if she had acute respiratory acidosis on arterial blood gases. She was briefly placed on BiPAP support for hypercapnia. Patient has been treated with IV steroids Zithromax nebulized short-acting bronchodilators. Current symptoms include wheezing, cough with green sputum production. spirometry measured at her roofing apprentice's office in 2019 showed FVC of 1.52 L or 62% predicted an FEV1 of 0.79 or 42% predicted with a ratio of 52%. Review of Systems Review of Systems: Patient reports no significant weight changes. She has no orthopnea. She has chronic shortness of breath related to her obstructive airway disease. She has no history of heart disease. She recently underwent colonoscopy. She has no nausea vomiting diarrhea or constipation. She has no urinary complaints. She has no pedal edema. She used to smoke half a pack per day for 50 years but quit approximately 50 years ago. She had Prevnar vaccine in 2020, Pneu
[2022-10-18] MEDS: ZOLPIDEM TARTRATE (*CRX) 5 MG TABLET PO (21:31)
[2022-10-18] MEDS: SALINE 0.65% NAS SOLN 44 ML BTL 1 SPRAY NASAL (22:58)
[2022-10-19] VITALS (23 sets, daily range): BP systolic 127–145; BP diastolic 65–89; PULSE 81–109; RESP 16–31; TEMP 36.2–36.9; O2SAT 93–97
[2022-10-19] MEDS: IPRATROPIUM BR 0.02% INH SOLN 0.5 MG/2.5 ML VIAL INHALATION ×7 (01:05→23:50)
[2022-10-19] MEDS: LEVALBUTEROL NEB 1.25 MG/3 ML INHALATION ×7 (01:05→23:50)
--- NOTE | 2022-10-19 01:58 | PCRCNOTE ---
Patient's 0000 updraft treatment was given at 0100 due to patient not wanting to be bothered at 0000. 0100 she called due to shortness of breath. RT to encourage use of bipap.
[2022-10-19] MEDS: SALIVA SUBSTITUTE COMBO RINSE 237 ML BOTTLE 15 ML PO (05:18)
[2022-10-19] MEDS: LEVOTHYROXINE SODIUM 50 MCG TABLET PO (05:33)
[2022-10-19] MEDS: PANTOPRAZOLE 40 MG TABLET PO (08:34)
[2022-10-19] MEDS: MONTELUKAST SODIUM 10 MG TABLET PO (08:34)
[2022-10-19] MEDS: CALCIUM CARBONATE (OSCAL) 500 MG TABLET 1000 MG PO (08:34)
[2022-10-19] MEDS: guaiFENesin 12 HR 600 MG TABCR PO ×2 (08:34→20:03)
[2022-10-19] MEDS: methylPREDNISolone SOD SUCC 125 MG VIAL 60 MG IV PUSH ×2 (08:35→17:44)
[2022-10-19] MEDS: ENOXAPARIN 40 MG/0.4 ML SYRINGE SUB-Q (08:35)
[2022-10-19] MEDS: FLUTICASONE PROP 220 MCG (*SP) 12 GM INHALER 4 PUFF INHALATION ×2 (08:47→20:45)
--- NOTE | 2022-10-19 09:29 | PM.PNPUL ---
Progress Note: A&P Assessment and Plan (1) COPD exacerbation: Code(s): J44.1 - Chronic obstructive pulmonary disease with (acute) exacerbation Status: Acute Assessment and Plan: 82-year-old female with history of asthma COPD overlap syndrome and also bronchiectasis chronically on maintenance treatment with high-dose ICS, Laba, Lama, Singulair with previous exacerbations for which she needed steroid oral bursts frequently until 4 years ago presented with shortness of breath wheezing related to COPD exacerbation. Patient has been on treatment with IV steroids short-acting bronchodilators and also IV azithromycin. Respiratory status has been essentially unchanged over the last 24 hours. Patient appears in mild respiratory distress but more comfortable since admission. sputum culture negative so far. She is not using BiPAP support at this point. Remains in bed. Plan: Continue with current regimen, out of bed to chair. Await MRSA screening. (2) Bronchiectasis: Code(s): J47.9 - Bronchiectasis, uncomplicated Status: Acute Subjective Date/time seen: 10/19/22 09:29 She has no new respiratory symptoms. Continues to have wheezing shortness of breath. Afebrile receiving nebulized short-acting bronchodilators every 4 hours, still on IV Solu-Medrol twice daily. Review of Systems Review of Systems: All systems reviewed & are unremarkable except as noted in HPI and below ( HPI and below) Exam Narrative: GENERAL APPEARANCE: Well developed, well nourished, alert and cooperative, and appears to be in Mild respiratory distress SKIN: Inspection of the skin reveals petechiae upper extremities. HEENT: Sclerae anicteric and conjunctivae pink and moist. Extraocular movements were intact and pupils were equal, round, and reactive to light. The oral mucosa, hard and soft palate, tongue and posterior pharynx were normal. NECK: Supple. There was no thyroid enlargement, and no tenderness, or masses were felt. CHEST: increased AP diameter and normal contour without any kyphoscoliosis. LUNGS: Auscultation of the lungs revealed expiratory wheezing bilaterally as before. CARDIAC: There was a regular rate and rhythm without any murmurs, gallops, rubs. ABDOMEN: Soft and nontender with normal bowel sounds. There was no organomegaly. LYMPH NODES: No lymphadenopathy was appreciated in the neck. EXTREMITIES: No cyanosis, clubbing or edema. NEUROLOGIC: Alert and oriented x 3. Normal affect. Objective Data Vital Signs Vital Signs: Vital Signs - 24 hr 10/18/22 10:00 10/18/22 12:08 10/18/22 12:17 Temperature Pulse Rate 101 H 100 110 H Respiratory Rate 20 20 Blood Pressure Pulse Oximetry Oxygen Delivery Oxygen Flow Rate Fraction of Inspired Oxygen 10/18/22 12:00 10/18/22 12:00 10/18/22 12:00 Temperature 37.1 C Pulse Rate 108 H 96 Respiratory Rate 28 H Blood Pressure 167/72 H Pulse Oximetry 99 99 Oxygen Delivery Nasal Cannula Oxygen Flow Rate 3 Fraction of Inspired Oxygen 10/18/22 14:00 10/18/22 16:24 10/18/22 16:37 Temperature Pulse Rate 99 101 H 109 H Respiratory Rate 20 20 Blood Pressure Pulse Oximetry Oxygen Delivery Oxygen Flow Rate Fraction of Inspired Oxygen 10/18/22 16:00 10/18/22 16:00 10/18/22 20:02 Temperature 37.1 C Pulse Rate 97 113 H 97 Respiratory Rate 16 Blood Pressure 161/81 H Pulse Oximetry 93 94 Oxygen Delivery Nasal Cannula Oxygen Flow Rate 2 Fraction of Inspired Oxygen 10/18/22 20:02 10/18/22 20:13 10/18/22 20:00 Temperature 36.6 C Pulse Rate 97 103 H 106 H Respiratory Rate 20 20 22 H Blood Pressure 156/79 H Pulse Oximetry 95 Oxygen Delivery Oxygen Flow Rate Fraction of Inspired Oxygen 10/18/22 20:00 10/18/22 23:14 10/19/22 00:00 Temperature 36.4 C Pulse Rate 98 98 105 H Respiratory Rate 20 20 Blood Pressure 143/61 H Pulse Oximetry 97 97 Oxygen Delivery Nasal Cannu
--- NOTE | 2022-10-19 11:01 | PM.IMPN ---
Progress Note: A&P Assessment and Plan (1) Asthma exacerbation: Code(s): J45.901 - Unspecified asthma with (acute) exacerbation Status: Acute Assessment and Plan: Continue nebulizer, steroids. Will decrease her steroids as she reports that she has having some anxiety and can't sleep. Continue azithromycin BiPAP as needed. ABG noted CT chest noted Pulmonary consult (2) Polycythemia: Code(s): D75.1 - Secondary polycythemia Status: Acute Assessment and Plan: She likely has chronic hypoxia. Will need a home O2 evaluation prior to discharge. ABG noted (3) Hypothyroidism: Code(s): E03.9 - Hypothyroidism, unspecified Status: Acute Assessment and Plan: Continue levothyroxine and check TSH. (4) Gastroesophageal reflux disease: Code(s): K21.9 - Gastro-esophageal reflux disease without esophagitis Status: Acute Assessment and Plan: Continue PPI. Subjective Date/time seen: 10/19/22 11:01 Breathing is much better. Exam Narrative: General: Moderately ill-appearing female sitting up in bed. Weight: 61.3 kg. BMI: 25.5. HEENT: Normocephalic, atraumatic. PERRL, EOMI. Sclera anicteric. Oral mucosa moist. Neck: Supple. No JVD or lymphadenopathy. Respiratory: Mildly tachypneic, speaking in 5 to 6 word sentences. Demonstrates occasional pursed lip breathing. Some accessory muscle use although she does not appear in impending respiratory distress. Lung sounds are significantly diminished throughout with tight, diffuse, prolonged and expiratory wheezing. Cardiovascular: Tachycardic with S1-S2. Gastrointestinal: Abdomen is soft, nontender, and nondistended with positive bowel sounds. Skin: Warm and dry. No rash or lesions on limited exam. Extremities: No cyanosis, clubbing, or edema. Radial and pedal pulses intact. Neurological: Alert. Cranial nerves 2-12 are grossly intact. No gross focal deficits to casual conversation. Psychiatric: Pleasant and cooperative with normal mood and affect. Judgment and insight intact. Objective Data Vital Signs Vital Signs: Vital Signs - 24 hr 10/18/22 12:08 10/18/22 12:17 10/18/22 12:00 Temperature 98.7 F Pulse Rate 100 110 H 108 H Respiratory Rate 20 20 28 H Blood Pressure 167/72 H Pulse Oximetry 99 Oxygen Delivery Oxygen Flow Rate Fraction of Inspired Oxygen 10/18/22 12:00 10/18/22 12:00 10/18/22 14:00 Temperature Pulse Rate 96 99 Respiratory Rate Blood Pressure Pulse Oximetry 99 Oxygen Delivery Nasal Cannula Oxygen Flow Rate 3 Fraction of Inspired Oxygen 10/18/22 16:24 10/18/22 16:37 10/18/22 16:00 Temperature Pulse Rate 101 H 109 H 97 Respiratory Rate 20 20 Blood Pressure Pulse Oximetry Oxygen Delivery Oxygen Flow Rate Fraction of Inspired Oxygen 10/18/22 16:00 10/18/22 20:02 10/18/22 20:02 Temperature 98.8 F Pulse Rate 113 H 97 97 Respiratory Rate 16 20 Blood Pressure 161/81 H Pulse Oximetry 93 94 Oxygen Delivery Nasal Cannula Oxygen Flow Rate 2 Fraction of Inspired Oxygen 10/18/22 20:13 10/18/22 20:00 10/18/22 20:00 Temperature 97.8 F Pulse Rate 103 H 106 H 98 Respiratory Rate 20 22 H 20 Blood Pressure 156/79 H Pulse Oximetry 95 97 Oxygen Delivery Nasal Cannula Oxygen Flow Rate 3 Fraction of Inspired Oxygen 21 10/18/22 23:14 10/19/22 00:00 10/19/22 01:05 Temperature 97.6 F Pulse Rate 98 105 H 106 H Respiratory Rate 20 20 Blood Pressure 143/61 H Pulse Oximetry 97 Oxygen Delivery Oxygen Flow Rate Fraction of Inspired Oxygen 10/19/22 01:05 10/19/22 01:15 10/19/22 04:00 Temperature 97.8 F Pulse Rate 109 H 109 H 99 Respiratory Rate 31 H 20 24 H Blood Pressure 134/76 Pulse Oximetry 97 97 Oxygen Delivery BiPAP Oxygen Flow Rate Fraction of Inspired Oxygen 10/19/22 04:30 10/19/22 04:40 10/19/22 04:00 Temperature Pulse Rate 101 H
[2022-10-19] MEDS: levoFLOXacin 750 MG TABLET PO (14:52)
[2022-10-19] MEDS: SALINE 0.65% NAS SOLN 44 ML BTL 1 SPRAY NASAL (22:19)
[2022-10-19] MEDS: ZOLPIDEM TARTRATE (*CRX) 5 MG TABLET PO (22:19)
[2022-10-20] VITALS (14 sets, daily range): BP systolic 131–151; BP diastolic 77; PULSE 88–108; RESP 16–22; TEMP 36.4; O2SAT 87–98
[2022-10-20] MEDS: LEVOTHYROXINE SODIUM 50 MCG TABLET PO (06:24)
--- NOTE | 2022-10-20 08:30 | PM.PNPUL ---
Progress Note: A&P Assessment and Plan (1) COPD exacerbation: Code(s): J44.1 - Chronic obstructive pulmonary disease with (acute) exacerbation Status: Acute Assessment and Plan: 82-year-old female with history of asthma COPD overlap syndrome and also bronchiectasis chronically on maintenance treatment with high-dose ICS, Laba, Lama, Singulair with previous exacerbations for which she needed steroid oral bursts frequently until 4 years ago presented with shortness of breath wheezing related to COPD exacerbation. Patient has been on treatment with IV steroids short-acting bronchodilators and also IV azithromycin. Respiratory status significantly improved over the last 24 hours. she no longer has expiratory wheezing on physical exam. Patient willing to go home. Started on levofloxacin presumably for Pseudomonas in sputum. Azithromycin has been discontinued. Plan: Pseudomonas in sputum is of high concern. patient stated she never grew Pseudomonas in her sputum. I have discontinued IV steroids as she has no expiratory wheezing on physical exam and also because of a Pseudomonas in sputum. She remains on relatively high dose of ICS inhalers. I would await for Pseudomonas sensitivity before DC patient. She will probably need suppressive treatment with azithromycin on an outpatient basis given new finding of Pseudomonas in sputum in a patient with bronchiectasis. (2) Bronchiectasis: Code(s): J47.9 - Bronchiectasis, uncomplicated Status: Acute Subjective Date/time seen: 10/20/22 08:30 Patient doing better less shortness of breath less wheezing. Sputum culture growing Pseudomonas, light growth. Antibiotic sensitivity pending. Patient used BiPAP support last night for a brief period of time. Review of Systems Review of Systems: All systems reviewed & are unremarkable except as noted in HPI and below ( HPI and below) Exam Narrative: GENERAL APPEARANCE: Well developed, well nourished, alert and cooperative, and appears to be in Mild respiratory distress SKIN: Inspection of the skin reveals petechiae upper extremities. HEENT: Sclerae anicteric and conjunctivae pink and moist. Extraocular movements were intact and pupils were equal, round, and reactive to light. The oral mucosa, hard and soft palate, tongue and posterior pharynx were normal. NECK: Supple. There was no thyroid enlargement, and no tenderness, or masses were felt. CHEST: increased AP diameter and normal contour without any kyphoscoliosis. LUNGS: Auscultation of the lungs revealed distant breath sounds bilaterally no expiratory wheezing today CARDIAC: There was a regular rate and rhythm without any murmurs, gallops, rubs. ABDOMEN: Soft and nontender with normal bowel sounds. There was no organomegaly. LYMPH NODES: No lymphadenopathy was appreciated in the neck. EXTREMITIES: No cyanosis, clubbing or edema. NEUROLOGIC: Alert and oriented x 3. Normal affect. Objective Data Vital Signs Vital Signs: Vital Signs - 24 hr 10/19/22 08:42 10/19/22 08:47 10/19/22 09:00 Temperature Pulse Rate 98 93 108 H Respiratory Rate 20 20 20 Blood Pressure Pulse Oximetry 95 Oxygen Delivery Nasal Cannula Oxygen Flow Rate 2 Fraction of Inspired Oxygen 10/19/22 09:06 10/19/22 09:17 10/19/22 09:15 Temperature Pulse Rate 108 H Respiratory Rate Blood Pressure Pulse Oximetry Oxygen Delivery Nasal Cannula Nasal Cannula Oxygen Flow Rate 2 2 Fraction of Inspired Oxygen 10/19/22 13:01 10/19/22 13:14 10/19/22 16:00 Temperature 36.9 C Pulse Rate 96 101 H 97 Respiratory Rate 20 20 16 Blood Pressure 127/65 Pulse Oximetry 95 Oxygen Delivery Oxygen Flow Rate Fraction of Inspired Oxygen 10/19/22 16:49 10/19/22 17:02 10/19/22 20:00 Temperature 36.8 C Pulse Rate 99 103 H 102 H Respiratory Rate 20 20 20 Blood Pressure 145/80 H Pulse Oximetry 95 Oxygen Delivery Oxygen Flow Rate
[2022-10-20] MEDS: MONTELUKAST SODIUM 10 MG TABLET PO (08:55)
[2022-10-20] MEDS: ENOXAPARIN 40 MG/0.4 ML SYRINGE SUB-Q (08:55)
[2022-10-20] MEDS: CALCIUM CARBONATE (OSCAL) 500 MG TABLET 1000 MG PO (08:55)
[2022-10-20] MEDS: guaiFENesin 12 HR 600 MG TABCR PO (08:55)
[2022-10-20] MEDS: PANTOPRAZOLE 40 MG TABLET PO (08:55)
[2022-10-20 09:49] LABS: Alveolar/Arterial O2 Gradient 75.4 mmHg; Base Excess ABG -0.3 mEq/l (+/-2.0); HCO3 ABG 24.5 mEq/l (22.0-26.0); Oxygen Content ABG 21.1 %vol (16.0-22.0); Oxygen Saturation ABG 95.2 % (95.0-100.0); Oxyhemoglobin 93.4 % THb (90.0-100.0); PCO2 ABG 40.8 mmHg (35.0-45.0); PO2 ABG 76.1 mmHg (80.0-100.0); Total Hemoglobin 16.1 g/dL (12.0-18.0); pH ABG 7.396 (7.350-7.450)
[2022-10-20 09:50] LABS: Carboxyhemoglobin 0.3 % THb (0-2.0); Device NASAL CANNULA; Fractional Inspired Oxygen 28 %; Methemoglobin ABG 0.4 %THb (0-1.5); PO2 FiO2 Ratio Arterial Blood 2.72 %; Reduced Hemoglobin 5.9 %THb (0-5.0)
[2022-10-20] MEDS: FLUTICASONE PROP 220 MCG (*SP) 12 GM INHALER 4 PUFF INHALATION (10:00)
[2022-10-20] MEDS: IPRATROPIUM BR 0.02% INH SOLN 0.5 MG/2.5 ML VIAL INHALATION (10:00)
[2022-10-20] MEDS: LEVALBUTEROL NEB 1.25 MG/3 ML INHALATION (10:00)
--- NOTE | 2022-10-20 14:59 | PM.DS ---
DS: Admitting Diagnosis Discharge Date 10/20/22 Admitting Diagnosis Acute on Chronic Resp Failure Pseudomonas PNA Bronchiectasis DS: Discharge Diagnosis Discharge Diagnosis (1) Bronchiectasis: Code(s): J47.9 - Bronchiectasis, uncomplicated Status: Acute (2) Asthma exacerbation: Code(s): J45.901 - Unspecified asthma with (acute) exacerbation Status: Acute (3) COPD exacerbation: Code(s): J44.1 - Chronic obstructive pulmonary disease with (acute) exacerbation Status: Acute DS: Summary Hospital Course Reason for hospitalization: Acute on Chronic Resp Failure Hospital Course: ?82-year-old female with asthma presented to the emergency department via EMS from home for evaluation of shortness of breath. . She was afebrile on arrival to the emergency department and her SpO2 has been in the mid 90s on 2 L nasal cannula. She has been persistently tachycardic and she was sent for CTA of the chest which was negative for pulmonary embolism or acute process. Pulmonary was consulted, started on bronchodilators, steroids, abx, sputum culture grew pseudomonas. Symptoms improved, was discharged on 2 weeks of levofloxacin but no steroids. Discharged home in stable condiiton. Status at Discharge Functional status at discharge: uses cane/walker Overall status at discharge: patient is progressing back to baseline Time Spent with Patient Time attestation: Total time spent providing and/or coordinating discharge services: Time spent: Greater than 30 minutes Exam Narrative: GENERAL APPEARANCE: Well developed, well nourished, alert and cooperative, and appears to be in Mild respiratory distress SKIN: Inspection of the skin reveals petechiae upper extremities. HEENT: Sclerae anicteric and conjunctivae pink and moist. Extraocular movements were intact and pupils were equal, round, and reactive to light. The oral mucosa, hard and soft palate, tongue and posterior pharynx were normal. NECK: Supple. There was no thyroid enlargement, and no tenderness, or masses were felt. CHEST: increased AP diameter and normal contour without any kyphoscoliosis. LUNGS: Auscultation of the lungs revealed distant breath sounds bilaterally no expiratory wheezing today CARDIAC: There was a regular rate and rhythm without any murmurs, gallops, rubs. ABDOMEN: Soft and nontender with normal bowel sounds. There was no organomegaly. LYMPH NODES: No lymphadenopathy was appreciated in the neck. EXTREMITIES: No cyanosis, clubbing or edema. NEUROLOGIC: Alert and oriented x 3. Normal affect. DS: Data Data Completed and Pending Labs on day of discharge: Labs from last 24 hours 10/16/22 23:37 Puncture Site Not Reportable ABG pH 7.396 ABG pCO2 40.8 ABG pO2 76.1 L ABG PO2/FiO2 Ratio 2.72 ABG HCO3 24.5 ABG O2 Saturation 95.2 ABG O2 Content 21.1 ABG Base Excess -0.3 A-a Gradient 75.4 Oxyhemoglobin 93.4 Carboxyhemoglobin 0.3 Methemoglobin 0.4 Reduced Hemoglobin 5.9 H Total Hemoglobin 16.1 O2 Delivery Device Nasal cannula O2 Liters/Min 2.0 FiO2 28 Discharge Plan Discharge Attending physician on discharge: Tessie Vang Consulting providers: Jonathon Valdez Discharging Clinician: Tessie Vang Anticipated Discharge Date/Time: 10/20/22 14:56 Patient Disposition: Home, Self-Care Activity: as tolerated Diet: regular Patient Instructions: Antibiotic Form Stand Alone Forms: General Discharge Information Follow-up/Referrals: Linnette Valencia MD [Primary Care Provider] - 2 Weeks Discharge Medications: New levofloxacin 750 mg tablet 750 mg PO DAILY Qty: 14 0RF Continued Flovent HFA 44 mcg/actuation HFA aerosol inhaler 4 puff INHALATION BID Rx Instructions: administer with spacer albuterol sulfate [ProAir HFA] 90 mcg/actuation HFA aerosol inhaler 2 inh inhalation BID calcium 1,000 mg 1,000 mg BYMOUTH DAILY Rx Instructions: Takes 2 ta
--- NOTE | 2022-10-20 15:12 | HOMEO2EVAL ---
Evaluation was performed at [facility] Home Oxygen Evaluation RC: Home Oxygen (O2) Evaluation Start: 10/20/22 14:31 Freq: ONCE Status: Active Protocol: RPE Activity Type Activity Date Activity User E-sign Co-sign Detail Recorded Client Recorded Date Recorded By Document 10/20/22 14:40 [email or web address] [email or web address] 10/20/22 15:12 DJO Document 10/20/22 14:45 [email or web address] [email or web address] 10/20/22 15:12 DJO Document 10/20/22 14:50 [email or web address] [email or web address] 10/20/22 15:12 DJO Document 10/20/22 14:55 [email or web address] [email or web address] 10/20/22 15:12 DJO Document 10/20/22 15:10 [email or web address] [email or web address] 10/20/22 15:12 DJO 10/20/22 10/20/22 10/20/22 14:40 14:45 14:50 Home O2 Evaluation [Oxygen] -Test Phase Resting Resting Resting -Oxygen Delivery Room Air Nasal Cannula Nasal Cannula -Oxygen Flow Rate (L/min) 1 2 [Pulse Oximetry] -Pulse Oximetry (90-100 %) 87 L 88 L 91 [Pulse Rate] -Pulse Rate (60-100 beats/min) 96 100 96 [Evaluation] -Activity Tolerance [Charges] -Treatment Charges O2 Evaluation - Inpatient 10/20/22 10/20/22 14:55 15:10 Home O2 Evaluation [Oxygen] -Test Phase Exercise Resting -Oxygen Delivery Nasal Cannula Nasal Cannula -Oxygen Flow Rate (L/min) 2 2 [Pulse Oximetry] -Pulse Oximetry (90-100 %) 91 91 [Pulse Rate] -Pulse Rate (60-100 beats/min) 108 H 99 [Evaluation] -Activity Tolerance Good [Charges] -Treatment Charges
== END 2022-10-20 16:23 | disposition home or self-care (01) | DRG 190 ==
LOC: ANHED 17:20 → ANH2MED 21:27 → ANHIMU 10-17 09:07
PROVIDERS: Chiropractor; Internal Medicine; Physician Assistant; Admitting Provider Internal Medicine; Emergency Provider Emergency Medicine; PCP Family Medicine; Visit Provider Internal Medicine
DX: J47.1 Bronchiectasis with (acute) exacerbation (principal); J96.02 Acute respiratory failure with hypercapnia; J45.51 Severe persistent asthma with (acute) exacerbation; D75.1 Secondary polycythemia; E03.9 Hypothyroidism, unspecified; E55.9 Vitamin D deficiency, unspecified; K21.9 Gastro-esophageal reflux disease without esophagitis; M81.0 Age-related osteoporosis without current pathological fracture; R73.03 Prediabetes; B96.5 Pseudomonas (aeruginosa) (mallei) (pseudomallei) as the cause of diseases classified elsewhere; Z20.822 Contact with and (suspected) exposure to COVID-19; Z87.891 Personal history of nicotine dependence; Z85.41 Personal history of malignant neoplasm of cervix uteri
CPT/HCPCS: 36415; 36600; 71046; 71275; 80048; 80053; 82375; 82805; 83050; 83735; 84443; 85025; 85027; 87070; 87077; 87081; 87186; 87205; 87637; 93005; 94002; 94003; 94618; 94640; 94667; 94668; 96361; 97110; 97162; 97165; 97530; 99285; A9270; G0378; J0456; J1650; J2060; J2930; J3475; J7030; Q9967

== ENCOUNTER 2022-10-21 06:47 | Emergency (ER) | payer MEDICARE, SELFPAY ==
[2022-10-21] VITALS (8 sets, daily range): BP systolic 132–154; BP diastolic 78–94; PULSE 107–121; RESP 15–20; TEMP 36.6; O2SAT 93–97
--- NOTE | ~2022-10-21 | XR_ITS ---
EXAMINATION: XR chest 2V DATE: 10/21/2022 08:57 INDICATION: Shortness of breath and tachycardia TECHNIQUE: AP and lateral views of the chest are obtained. COMPARISON: 10/16/2022 FINDINGS: There is chronic scarring versus atelectasis of the lung bases. The lungs are free of acute opacities. No pleural effusion or pneumothorax. The cardiomediastinal silhouette is normal. There is moderate thoracic spondylosis. IMPRESSION: 1. No acute cardiopulmonary abnormality. Reviewed, dictated and finalized at location L.
--- NOTE | 2022-10-21 07:16 | PC.NURSE ---
Pt states I just was not ready to go home, no one told me how to use the oxygen or be safe with it . Pt has complaints of lack of energy and states this was not an issue before her previous admission to the hospital. Pt has fears of falling due to her lack of energy. Pt says she feels as if the hospital did not set her up properly when discharging .
--- NOTE | 2022-10-21 07:24 | PC.NURSE ---
Pt states the oxygen has so many side effects that are negative and you guys just don't realize that .
--- NOTE | 2022-10-21 08:13 | ED.GENADULT ---
HPI - General Adult General Chief complaint: Shortness of Breath/Dyspnea Stated complaint: asthma Time Seen by Provider: 10/21/22 06:57 History of Present Illness HPI narrative: 82-year-old female presenting to the emergency department for evaluation due to feeling overwhelmed after recently being discharged from the hospital. Patient had been admitted for an asthma/COPD exacerbation with bronchiectasis secondary to a Pseudomonas infection. Patient was started on Levaquin and discharged to home with home oxygen as she had a new oxygen requirement. Patient states that she got home yesterday and did feel fatigued. Patient did have an oxygen tank that she was using since being discharged. Home health called her at approximately 8 PM to set up her home oxygen and patient declined because she felt too tired. Respiratory therapist felt that her oxygen tank only would have lasted 5 or 6 hours and would not have lasted the entire night. This morning patient felt that she did not sleep well last night and she was not prepared to be discharged home with oxygen. Patient did call EMS this morning for transportation back to the ED. EMS did place the patient on 2 L of oxygen for transfer. Patient was tachycardic but not hypoxic upon arrival to the ED. Upon arrival to the ED patient denies any worsening chest pain or shortness of breath but states that she does not feel that she is able to acutely manage her medical issues at home since she does live at home alone. Related Data Home Medications Medication Instructions Recorded Confirmed montelukast 10 mg tablet 10 mg PO DAILY 09/21/19 10/21/22 (Singulair) salmeterol 50 mcg/dose blister 1 inhalation inhalation Q12H 09/21/19 10/21/22 powder for inhalation (Serevent Diskus) tiotropium bromide 18 mcg capsule 1 cap inhalation DAILY 09/21/19 10/21/22 with inhalation device (Spiriva with HandiHaler) fluticasone propionate 44 4 puff inhalation BID 03/17/20 10/21/22 mcg/actuation HFA aerosol inhaler (Flovent HFA) albuterol sulfate 90 mcg/actuation 2 inh inhalation BID 01/08/21 10/21/22 aerosol inhaler (ProAir HFA) calcium 1,000 mg BYMOUTH DAILY 10/08/22 10/21/22 tiotropium bromide 18 mcg capsule 1 cap inhalation DAILY 10/16/22 10/21/22 with inhalation device (Spiriva with HandiHaler) zolpidem 10 mg tablet (Ambien) 10 mg PO HS 10/16/22 10/21/22 Allergies Allergy/AdvReac Type Severity Reaction Status Date / Time kiwi Allergy Unknown Hives Verified 10/21/22 06:59 Penicillins Allergy Unknown Unknown Verified 10/21/22 06:59 Sulfa (Sulfonamide Allergy Unknown Unknown Verified 10/21/22 06:59 Antibiotics) Review of Systems Review of Systems: All systems reviewed & are unremarkable except as noted in HPI and below PMFSH Past Medical History Medical History (Updated 10/21/22 @ 11:23 by Delonte Garner MD) Asthma Montoya's esophagus Cervical cancer (1975) Gastroesophageal reflux disease History of methicillin resistant Staphylococcus aureus infection Hypothyroidism Osteoporosis Prediabetes Severe persistent asthma without complication Vitamin D deficiency Surgical History Surgical History (Updated 10/16/22 @ 23:40 by Kylah Cosby PA-C) History of appendectomy History of cataract extraction with lens replacement History of colonoscopy with polypectomy History of hysterectomy History of tonsillectomy Family History Family History (Updated 10/16/22 @ 23:40 by Kylah Cosby PA-C) Other Family history non-contributory Social History Social History (Updated 10/16/22 @ 23:41 by Kylah Cosby PA-C) Social History: Surrogate medical decision maker: Hernán Diallo, son. Code status: Full code. Smoking status: Former smoker Tobacco type: cigarettes Second hand tobacco smoke exposure: No Alcohol intake: current Drinks per week: 14 Alcohol use details: WINE Substance use: current Substance use type: marijuana Other
[2022-10-21 08:22] LABS: Alveolar/Arterial O2 Gradient 83.1 mmHg; Base Excess ABG 4.1 mEq/l (+/-2.0); Fractional Inspired Oxygen 28 %; HCO3 ABG 26.5 mEq/l (22.0-26.0); Oxygen Content ABG 23.4 %vol (16.0-22.0); Oxygen Saturation ABG 96.5 % (95.0-100.0); Oxyhemoglobin 94.2 % THb (90.0-100.0); PCO2 ABG 33.8 mmHg (35.0-45.0); PO2 ABG 76.7 mmHg (80.0-100.0); PO2 FiO2 Ratio Arterial Blood 2.74 %; Total Hemoglobin 17.7 g/dL (12.0-18.0)
[2022-10-21 08:24] LABS: Device NASAL CANNULA; Modified Allen's Test Pass; Site Drawn LEFT RADIAL; pH ABG 7.512 (7.350-7.450)
[2022-10-21] MEDS: LEVALBUTEROL NEB 1.25 MG/3 ML INHALATION (08:33)
[2022-10-21] MEDS: SODIUM CHLORIDE 0.9% IV 1,000 ML 500 ML IV CONT (08:40)
[2022-10-21 08:43] LABS: Basophils Absolute Auto 0.1 K/mm3 (0.0-0.1); Basophils Percent Auto 0.5 % (0.2-1.2); Eosinophils Percent Auto 0.3 % (0-4.4); Hematocrit 52.9 % (37.0-47.0); Hemoglobin 17.6 g/dL (12.0-15.0); Immature Granulocyte Absolute 0.09 K/mm3 (0.00-0.031); Immature Granulocyte Percent A 0.8 % (0-0.5); Lymphocytes Absolute Auto 1.63 K/mm3 (0.9-3.2); Lymphocytes Percent Auto 13.9 % (18.3-44.2); Mean Corpuscular HGB Conc 33.3 g/dl (32-36); Mean Corpuscular Hemoglobin 31.8 pg (26-34); Mean Corpuscular Volume 95.7 fl (80-100); Mean Platelet Volume 9.3 fl (7.4-10.4); Monocytes Absolute Auto 1.4 K/mm3 (0.1-0.6); Monocytes Percent Auto 12.2 % (2.6-8.5); Neutrophils Absolute Auto 8.5 K/mm3 (1.3-6.7); Neutrophils Percent Auto 72.3 % (45.5-73.1); Platelet Count Result 246 k/mm3 (150-375); Red Blood Count 5.53 M/mm3 (4.2-5.4); Red Cell Distribution Width 14.3 % (11.5-14.5); White Blood Count 11.8 K/mm3 (4.5-10.0)
[2022-10-21 08:51] LABS: Alanine Aminotransferase 26 U/L (6-35); Albumin Level 4.1 g/dL (3.5-5.1); Alkaline Phosphatase 116 U/L (38-126); Anion Gap 5 mmol/L (8-16); Aspartate Amino Transferase 27 U/L (14-36); Bilirubin,Total 1.1 mg/dL (0.2-1.3); Blood Urea Nitrogen 11 mg/dL (7-17); Calcium 8.6 mg/dL (8.4-10.2); Carbon Dioxide 35 mmol/L (22-30); Chloride 90 mmol/L (98-107); Estimated CRCL calculation 64 ml/min; Estimated Glomerular Filt Rate > 60; Glucose 122 mg/dL (65-110); Potassium 3.2 mmol/L (3.4-5.0); Sodium 130 mmol/L (137-145)
[2022-10-21] MEDS: POTASSIUM CHLORIDE 20 MEQ PACKET (FOR LIQUID) 40 MEQ PO (10:45)
--- NOTE | 2022-10-21 11:27 | PCCCNOTE ---
Consulted on pt. Pt stated would like to go home, but would like O2 completely arraigned wo not to rum out of O2. Also a bedside commode would be helpful at nighttime. [facility] contacted and has commode available for pt.
== END 2022-10-21 12:51 | disposition home or self-care (01) ==
PROVIDERS: Emergency Provider Emergency Medicine; PCP Family Medicine
DX: J44.1 Chronic obstructive pulmonary disease with (acute) exacerbation (principal); F41.9 Anxiety disorder, unspecified; J45.50 Severe persistent asthma, uncomplicated; R73.03 Prediabetes; E03.9 Hypothyroidism, unspecified; E55.9 Vitamin D deficiency, unspecified; K22.70 Barrett's esophagus without dysplasia; K21.9 Gastro-esophageal reflux disease without esophagitis; M81.0 Age-related osteoporosis without current pathological fracture; Z86.14 Personal history of Methicillin resistant Staphylococcus aureus infection; Z85.41 Personal history of malignant neoplasm of cervix uteri; Z98.49 Cataract extraction status, unspecified eye; Z96.1 Presence of intraocular lens; Z90.710 Acquired absence of both cervix and uterus
CPT/HCPCS: 36415; 36600; 71046; 80053; 82805; 85025; 94640; 96360; 99283; A9270; J7030

== ENCOUNTER 2022-11-29 11:55 | Outpatient (CLI) | payer MEDICARE, SELFPAY ==
--- NOTE | 2022-11-30 13:38 | WPDSIXMINUTE ---
Six Minute Walk Procedure Procedure Performed Pulmonary Stress Test (6 min walk) Six Minute Walk Six Minute Walk: This is a 6 minute walk test. The test was performed and interpreted in accordance with the 2014 ERS/ATS task force guidelines. Findings: The patient's resting room air oxygen saturation measured by pulse oximetry was 94% and heart rate was 107 bpm. Patient ambulated for 122 meters and oxygen saturation remained 92 to 94%. Heart rate at the end of the study was 120 bpm. The patient did not qualify for supplemental oxygen at rest or with ambulation. There are no prior studies for comparison.
== END 2022-11-29 11:56 | disposition home or self-care (01) ==
PROVIDERS: PCP Family Medicine; Visit Provider Internal Medicine Pulmonary Disease
DX: J84.9 Interstitial pulmonary disease, unspecified (principal)
CPT/HCPCS: 94618

== ENCOUNTER 2022-12-15 13:19 | Outpatient (CLI) | payer MEDICARE, SELFPAY ==
--- NOTE | ~2022-12-15 | US_ITS ---
US thyroid INDICATION: Hypothyroidism TECHNIQUE: Real-time sonographic images of the thyroid gland were obtained. COMPARISON: No prior studies for comparison. FINDINGS: The right thyroid lobe measures 3.4 x 1.5 x 1.4 cm. The left thyroid lobe measures 2.6 x 1 x 0.9 cm. Thyroid echotexture is diffusely heterogeneous. There are small bilateral thyroid subcenti meter cysts. No suspicious solid masses are identified in either lobe. IMPRESSION: 1. Atrophic thyroid gland. Benign-appearing subcentimeter bilateral thyroid cysts. No suspicious mas ses which meet sonographic criteria for biopsy. Reviewed, dictated and finalized at location [] IMPRESSION: 1. Atrophic thyroid gland. Benign-appearing subcentimeter bilateral thyroid cy sts. No suspicious masses which meet sonographic criteria for biopsy.
== END 2022-12-15 13:20 | disposition home or self-care (01) ==
PROVIDERS: PCP Family Medicine; Visit Provider Physician Assistant Medical
DX: E03.9 Hypothyroidism, unspecified (principal)
CPT/HCPCS: 76536

== ENCOUNTER 2022-12-18 13:44 | Emergency (ER) | payer MEDICARE, SELFPAY ==
[2022-12-18 13:58] VITALS: BP 111/58; PULSE 95; RESP 18; TEMP 36.7; O2SAT 93
--- NOTE | 2022-12-18 14:49 | ED.SKABFB ---
HPI - Skin/Abscess/Foreign Bdy General Chief complaint: Extremity Injury, Upper Stated complaint: right wrist pain Time Seen by Provider: 12/18/22 14:42 Source: patient and RN notes reviewed Mode of arrival: ambulatory Limitations: no limitations History of Present Illness HPI narrative: Patient presents today complaining of redness and swelling to the right forearm since yesterday with pain. Denies itching. Currently rates her pain 6/10 and has been taking prescription pain medicine with mild relief. States she may have been bit while she was sleeping. Related Data Home Medications Medication Instructions Recorded Confirmed montelukast 10 mg tablet 10 mg PO DAILY 09/21/19 12/10/22 (Singulair) salmeterol 50 mcg/dose blister 1 inhalation inhalation Q12H 09/21/19 12/10/22 powder for inhalation (Serevent Diskus) fluticasone propionate 44 4 puff inhalation BID 03/17/20 12/10/22 mcg/actuation HFA aerosol inhaler (Flovent HFA) albuterol sulfate 90 mcg/actuation 2 inh inhalation BID 01/08/21 12/10/22 aerosol inhaler (ProAir HFA) calcium 1,000 mg BYMOUTH DAILY 10/08/22 12/10/22 tiotropium bromide 18 mcg capsule 1 cap inhalation DAILY 10/16/22 12/10/22 with inhalation device (Spiriva with HandiHaler) Allergies Allergy/AdvReac Type Severity Reaction Status Date / Time kiwi Allergy Unknown Hives Verified 12/18/22 14:14 Penicillins Allergy Unknown Rash Verified 12/18/22 14:49 Sulfa (Sulfonamide Allergy Unknown Unknown Verified 12/18/22 14:14 Antibiotics) Review of Systems Review of Systems: CONSTITUTIONAL: Denies body aches, fever, chills, or sweats. EYES: Denies visual changes, redness, or discharge. ENT: Denies rhinorrhea, congestion, sore throat, or otalgia. CARDIOVASCULAR: Denies chest pain, palpitations, or edema. RESPIRATORY: Denies cough or dyspnea. GASTROINTESTINAL: Denies abdominal pain, nausea, vomiting, or diarrhea. GENITOURINARY: Denies dysuria or hematuria. SKIN: + redness and swelling to the right forearm MUSCULOSKELETAL: Denies back pain, joint pain, or myalgia. NEUROLOGIC: Denies headache, numbness, tingling, or weakness. PSYCH: Denies depression or anxiety. [facility] Past Medical History Medical History Asthma Montoya's esophagus Cervical cancer (1975) Gastroesophageal reflux disease History of methicillin resistant Staphylococcus aureus infection Hypothyroidism Osteoporosis Prediabetes Severe persistent asthma without complication Vitamin D deficiency Surgical History Surgical History History of appendectomy History of cataract extraction with lens replacement History of colonoscopy with polypectomy History of hysterectomy History of tonsillectomy Family History Family History Other Family history non-contributory Social History Social History Social History: Surrogate medical decision maker: Hernán Diallo, son. Code status: Full code. Smoking status: Former smoker Tobacco type: cigarettes Second hand tobacco smoke exposure: No Alcohol intake: current Drinks per week: 14 Alcohol use details: WINE Substance use: current Substance use type: marijuana Other substance usage details: OCC. Lack of Transportation: No Lack of Food: Never True Current Housing: I Have Housing Concerned About Future Housing: No Difficulty Paying Gas/Electric Bills: No Difficulty Paying for Meds: No Currently Unemployed: No Education: Master's Degree or Higher Difficulty w/ Childcare or Family Care: No Additional living arrangements comments: Lives alone in [place]. 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 Spiritual care concerns: No Agree to blood products:
== END 2022-12-18 14:57 | disposition home or self-care (01) ==
PROVIDERS: Emergency Provider Nurse Practitioner; PCP Family Medicine
DX: S50.861A Insect bite (nonvenomous) of right forearm, initial encounter (principal); L08.9 Local infection of the skin and subcutaneous tissue, unspecified; W57.XXXA Bitten or stung by nonvenomous insect and other nonvenomous arthropods, initial encounter; Z87.891 Personal history of nicotine dependence; F12.90 Cannabis use, unspecified, uncomplicated; J45.909 Unspecified asthma, uncomplicated; K22.70 Barrett's esophagus without dysplasia; K21.9 Gastro-esophageal reflux disease without esophagitis; E03.9 Hypothyroidism, unspecified; M81.0 Age-related osteoporosis without current pathological fracture; R73.03 Prediabetes; E55.9 Vitamin D deficiency, unspecified; Z85.41 Personal history of malignant neoplasm of cervix uteri; Z86.14 Personal history of Methicillin resistant Staphylococcus aureus infection
CPT/HCPCS: 99213; G0463

== ENCOUNTER 2024-03-22 12:55 | Outpatient (CLI) | payer MEDICARE, SELFPAY ==
--- NOTE | ~2024-03-22 | MR_ITS ---
EXAMINATION: MR hip LT wo con DATE: 03/22/2024 14:15 INDICATION: Left hip pain TECHNIQUE: Magnetic resonance imaging (MRI) of the left hip was performed without intravenous contra st. Sequences included full-field axial PD-weighted FS FSE and T1-weighted FSE, coronal of the pelvis with PD-weighted FS FSE, T2-weighted FSE and T1-weighted FSE, small field of view of the left hip w ith axial PD-weighted FS FSE, sagittal PD-weighted FS FSE, coronal PD-weighted FS FSE and coronal T2 weighted FSE. Additional radial T1-weighted FGR oriented orthogonal to the acetabular rim were obtai ana for evaluation of the labrum. COMPARISON: 08/02/16 FINDINGS: There is some motion artifact on several sequences which mildly limits evaluation. Bones/labrum/cartilage: Alignment is normal. No fracture, avascular necrosis or pathologic marrow replacing process. There i s moderate osteoarthritis at the left hip with likely chronic diffuse labral degeneration with minima l amount of residual frayed labral tissue and small marginal osteophytes along the rim of the acetabu lum. Additional small to moderate size marginal osteophytes along the left femoral head. Similar find ings but less severe mild to moderate osteoarthritis are suggestive at the contralateral right femora l hip but not diagnostically evaluated on the large [id number] imaging. Fluid: There is small left hip joint effusion and/or synovitis. Physiologic amount fluid at the right hip mic int space. No bursitis or other abnormal fluid collections. Soft tissues: Diffuse mild likely age-related osteopenia with symmetric mild fatty atrophy of the musculature of th e pelvis and proximal thighs. The iliopsoas, gluteal and proximal hamstring tendons are normal. There is diverticulosis along the visualized sigmoid colon with no adjacent comparison to suggest divertic ulitis. Bladder is normal. The uterus is not identified and has likely been surgically resected. No pathologically enlarged pelvic/inguinal lymphadenopathy. IMPRESSION: 1. Moderate left hip osteoarthritis with small left hip joint effusion and/or synovitis. Reviewed, dictated and finalized at location A. IMPRESSION: 1. Moderate left hip osteoarthritis with small left hip joint effusion and/or s ynovitis.
== END 2024-03-22 12:56 | disposition home or self-care (01) ==
PROVIDERS: PCP Family Medicine; Visit Provider Physician Assistant Surgical
DX: M16.12 Unilateral primary osteoarthritis, left hip (principal); M25.552 Pain in left hip
CPT/HCPCS: 73721

== ENCOUNTER 2024-05-22 15:45 | Outpatient (RCR) | payer MEDICARE, SELFPAY ==
--- NOTE | 2024-04-20 15:29 | OPREHPOC ---
Outpatient Therapy Plan of Care This is a Multidisciplinary Plan of Care that may contain components documented by all disciplines (PT, OT, and ST.) PT Problem 1 PT Problem #1 Knowledge Deficit PT Goal 1 Goal / Goal Update [place] with HEP PT Problem 2 PT Problem #2 Impaired Range of Motion PT Goal 1 Goal / Goal Update Patient will improve brodie hip abduction to 35 degrees to reduce capsular restriction with movement Target Visit 8 PT Goal 2 Goal / Goal Update Patient will improve brodie hip external rotation to 35 degrees to reduce capsular restriction with dressing and mobility Target Visit 8 PT Problem 3 PT Problem #3 Impaired Strength PT Goal 1 Goal / Goal Update Patient will improve hip flexion strength to 4+/5 to improve foot clearance with gait Target Visit 8 PT Goal 2 Goal / Goal Update Patient will improve hip abduction strength to 4+/ 5 to improve lateral stability with gait and functional mechanics Target Visit 8
--- NOTE | 2024-04-20 15:29 | PTOPEVAL1 ---
Assessment and note entered by Sulaiman Palomo, PT Evaluation Information Assessment Status Evaluation Diagnosis OA of left hip ICD-10 Condition Codes (PT) Pain in left hip M25.552,R26.9 Onset February 2024 Subjective Information Reports that she has been having a lot of pain in the past 6 weeks that has recently increased. She had a cortisone injection that lasted about 3 days . She has not been able to do a lot of walking but that is also contributed to her breathing issues. No pain at rest. All pain comes on with movement. Reports that she does have a history of a bad fall about 3 years ago. She had a recent fall about 7 weeks ago. Reported Pain Level Pain Score 0: Self Report Assessment PT Clinical Summary Patient presents with signs and symptoms consistent with trochanteric bursitis and trauma related capsulitis of left hip. Gait cycle and functional mobility limited a this time in combination with gross hip weakness. Patient will benefit form skilled therapy to address these deficits to improve gross hip mobility and gait cycle for ADL function. Plan of Care Interventions Gait Training,Hot Pack/Cold Pack,Manual Therapy, Neuro Re-education,Therapeutic Activities, Therapeutic Exercise PT Services Indicated Yes Treatment Frequency and 2x/week for 8 visits Duration These treatments will address the objective and functional deficits as defined above. The patient will be advanced safely and appropriately in order for the patient to progress towards his/her prior level of function. Additional exercises will be introduced and as well as a comprehensive home exercise program upon discharge, if needed, ?to ensure carryover of functional gains achieved in the clinic. This treatment plan has been reviewed and agreement upon by the patient.
--- NOTE | 2024-05-22 16:32 | OPREHPOC ---
Outpatient Therapy Plan of Care This is a Multidisciplinary Plan of Care that may contain components documented by all disciplines (PT, OT, and ST.) PT Problem 1 PT Problem #1 Knowledge Deficit PT Goal 1 Goal / Goal Update [place] with HEP Progress Met PT Problem 2 PT Problem #2 Impaired Range of Motion PT Goal 1 Goal / Goal Update Patient will improve brodie hip abduction to 35 degrees to reduce capsular restriction with movement Target Visit 8 Progress Met PT Goal 2 Goal / Goal Update Patient will improve brodie hip external rotation to 35 degrees to reduce capsular restriction with dressing and mobility Target Visit 8 Progress Met PT Problem 3 PT Problem #3 Impaired Strength PT Goal 1 Goal / Goal Update Patient will improve hip flexion strength to 4+/5 to improve foot clearance with gait Target Visit 8 Progress Met PT Goal 2 Goal / Goal Update Patient will improve hip abduction strength to 4+/ 5 to improve lateral stability with gait and functional mechanics Target Visit 8 Progress Not Met
--- NOTE | 2024-05-22 16:32 | PTOPDC ---
Assessment and note entered by Sulaiman Palomo, PT Evaluation Information Assessment Status Discharge Diagnosis OA of left hip ICD-10 Condition Codes (PT) Pain in left hip M25.552,R26.9 Onset February 2024 Subjective Information Reports that overall she is feeling better than when she started. She still is having trouble sleeping on her left side but has not been able to do it still. She has been doing exercise consistently. She has no concerns with current exercise regimen. Reported Pain Level Pain Score 0: Self Report Assessment PT Clinical Summary Patient made excellent subjective improvement and has been able to return to independent gait with improved stride bilaterally. Good undertanding of HEP. Plan of Care PT Services Indicated Yes
== END 2024-05-23 08:46 | disposition home or self-care (01) ==
LOC: ANHGOSHPT 15:45
PROVIDERS: PCP Family Medicine; Visit Provider Orthopaedic Surgery
DX: M16.12 Unilateral primary osteoarthritis, left hip (principal); M70.62 Trochanteric bursitis, left hip; R26.9 Unspecified abnormalities of gait and mobility
CPT/HCPCS: 97014; 97110; 97140; 97161; G0283

== ENCOUNTER 2024-07-28 00:38 | Inpatient (IN) | payer MEDICARE, SELFPAY ==
[2024-07-28] VITALS (35 sets, daily range): BP systolic 109–166; BP diastolic 57–95; PULSE 90–118; RESP 14–55; TEMP 36.8–37.8; O2SAT 90–97; BMI 26.6
--- NOTE | ~2024-07-28 | XR_ITS ---
CHEST RADIOGRAPH CLINICAL HISTORY: shortness of breath . COMPARISON: 07/28/2024 TECHNIQUE: Single portable view of the chest. FINDINGS The cardiomediastinal silhouette is enlarged, unchanged. Platelike atelectasis redemonstrated bilaterally. The remainder of the lungs are otherwise clear. Visualized osseous structures and soft tissues are unremarkable. IMPRESSION: Platelike atelectasis, without focal infiltrate or effusion. Reviewed, dictated and finalized at location A. G RIDE OPERATOR
--- NOTE | ~2024-07-28 | CT_ITS ---
EXAMINATION: CTA chest PE protocol DATE: 07/29/2024 14:52 MILL BEAM FITTER INDICATION: Shortness of breath and tachycardia TECHNIQUE: Computed tomographic angiography (CTA) of the chest was performed with 100 mL Omnipaque-35 0 intravenous contrast. The dose-length product was 261.84 mGy-cm. Maximum intensity projection 3D-re constructions of the aorta and other arteries were constructed by the technologist on a separate work station. COMPARISON: 10/16/2022 FINDINGS: No filling defects within the main or proximal pulmonary arteries. Significant respiratory motion artifact is present, precluding adequate evaluation for small pulmonar y nodules. Interstitial thickening bilaterally with varicose bronchiectasis and bibasilar atelectasis. Soft tissue attenuation is identified layering within the left main pulmonary bronchus, possibly yasmani factual secondary to motion artifact. The thoracic aorta is nonaneurysmal and without dissection. Reflux of intravenous contrast is present within the hepatic veins, suggesting right heart compromise . Within the upper abdomen: Densely calcified atherosclerotic disease is present, without aneurysmal di latation. Diffuse bony demineralization without acute compression fracture. IMPRESSION: No pulmonary embolus. No aortic dissection. Findings suggesting right heart compromise. Reviewed, dictated and finalized at location A. BEAM FITTER
--- NOTE | ~2024-07-28 | XR_ITS ---
EXAMINATION: XR chest 1V portable DATE: 07/28/2024 01:27 INDICATION: Hypoxia. TECHNIQUE: A single frontal view of the chest was obtained. COMPARISON: Chest 2 views 10/21/2022, chest CT 10/16/2022 FINDINGS: There are airspace opacities in the lower lung zones. No pleural effusion or pneumothorax. Cardiomegaly is noted. IMPRESSION: 1. Airspace opacities in the lower lung zones, consistent with atelectasis versus scarring. 2. Cardiomegaly. Reviewed, dictated and finalized at location A. ER ASSISTANT IMPRESSION: 1. Airspace opacities in the lower lung zones, consistent with atelectasis vers us scarring. 2. Cardiomegaly.
--- NOTE | 2024-07-28 00:43 | ECG_ITS ---
Test Date: 2024-07-28 01:41:43 Measurements Intervals [place] Rate: 108 P: 67 AL: 136 QRS: 27 QRSD: 136 T: -43 QT: 342 QTc: 460 Interpretive Statements SINUS TACHYCARDIA WITH OCCASIONAL SUPRAVENTRICULAR PREMATURE COMPLEXES LEFT BUNDLE BRANCH BLOCK BASELINE ARTIFACT- I, II, III, AVR, AVL, AVF ABNORMAL ECG No previous ECG available for comparison Electronically Signed On 07-28-2024 10:38:23 JAVA DEVELOPER ARCHITECT by Marco Callahan D.O.
--- NOTE | 2024-07-28 00:43 | ED_ITS ---
HPI - SOB/Dyspnea General Chief Complaint: Shortness of Breath/Dyspnea <Zoila Kidd PA-C - Last Filed: 07/28/24 04:11> Stated Complaint: shortness of breath <Zoila Kidd PA-C - Last Filed: 07/28/24 04:11> History of Present Illness HPI Narrative: 84-year-old female with history of GERD, hypothyroidism, COPD, asthma, hypertension, hyperlipidemia presents to the ED via EMS from home for shortness of breath. Patient states she woke up with a productive cough with green-yellow sputum. Throughout the day she began feeling increasingly more short of breath. States she short of breath with exertion. Denies orthopnea, lower extremity edema, history of CHF, history of VTE, hemoptysis, fever. Per EMS, patient was hypoxic upon their arrival to her house and was placed on O2. She was also found to have decreased lung sounds with inspiratory wheezing was given a breathing treatment with improvement. <Zoila Kidd PA-C - Last Filed: 07/28/24 04:11> Related Data Home Medications: Home Medications ?Medication ?Instructions ?Recorded ?Confirmed ?Last Taken ?Type montelukast 10 mg tablet 10 mg PO DAILY 09/21/19 07/23/24 10/16/22 History (Singulair) salmeterol 50 mcg/dose blister 1 inhalation inhalation Q12H 09/21/19 07/23/24 10/16/22 History powder for inhalation (Serevent Diskus) fluticasone propionate 44 4 puff inhalation BID 03/17/20 07/23/24 10/16/22 History mcg/actuation HFA aerosol inhaler (Flovent HFA) albuterol sulfate 90 mcg/actuation 2 inh inhalation BID 01/08/21 07/23/24 10/16/22 History aerosol inhaler (ProAir HFA) calcium 1,000 mg BYMOUTH DAILY 10/08/22 07/23/24 10/16/22 History tiotropium bromide 18 mcg capsule 1 cap inhalation DAILY 10/16/22 07/23/24 10/16/22 History with inhalation device (Spiriva with HandiHaler) cholecalciferol (vitamin D3) 25 25 mcg PO DAILY 01/03/23 07/23/24 Unknown History mcg (1,000 unit) capsule melatonin 10 mg capsule 10 mg PO QHS 06/14/23 07/23/24 Unknown History multivitamin (Daily Multi-Vitamin 1 tablet PO DAILY 06/14/23 07/23/24 Unknown History tablet) psyllium 1 tbsp PO DAILY 06/14/23 07/23/24 Unknown History vit A palm and D3 in cod liver oil cap PO 06/14/23 07/23/24 Unknown History 1,250 unit-130 unit-530 mg capsule (Cod Liver Oil plus Vits A and D3) <Zoila Kidd PA-C - Last Filed: 07/28/24 04:11> Allergies/Adverse Reactions: Allergies Allergy/AdvReac Type Severity Reaction Status Date / Time Penicillins Allergy Unknown Rash Verified 07/23/24 13:55 Sulfa (Sulfonamide Allergy Unknown Unknown Verified 07/23/24 13:55 Antibiotics) <Zoila Kidd PA-C - Last Filed: 07/28/24 04:11> Review of Systems 2 Review of Systems: All systems reviewed & are unremarkable except as noted in HPI and below <Zoila Kidd PA-C - Last Filed: 07/28/24 04:11> [facility] Past Medical History Medical History: Medical History Cervical cancer (1975) Gastroesophageal reflux disease Hypothyroidism Asthma History of methicillin resistant Staphylococcus aureus infection Osteoporosis Prediabetes Montoya's esophagus Severe persistent asthma without complication Vitamin D deficiency <Zoila Kidd PA-C - Last Filed: 07/28/24 04:11> Surgical History Surgical History: Surgical History History of tonsillectomy History of cataract extraction with lens replacement History of hysterectomy History of appendectomy History of colonoscopy with polypectomy <Zoila Kidd PA-C - Last Filed: 07/28/24 04:11> Family History Family History: Family History Other Family history non-contributory <Zoila Kidd PA-C - Last Filed: 07/28/24 04:11> Social History Social History: Social History Social History: Surrogate medical decision maker: Hernán Diallo, baljit. Code status: Full code. Smoking status: Former smoker Tobacco type: cigarettes Second hand tobacco smoke exposure: No Alcohol intake: current Drinks per week: 2 Alcohol use details: WINE Substance use: current Substance use type: marijuana Other substance usage details: OCC. Current Housing: Decline to Answer Concerned About Future Housing: Decline to Answer Difficulty Paying Gas/Electric Bills: Decline to Answer Difficulty Paying for Meds: Decline to Answer Currently Unemployed: Decline to Answer Education: Decline to Answer Difficulty w/ Childcare or Family Care: Decline to Answer Living arrangements: alone Additional living arrangements comments: Lives alone in [place]. 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 Gender identity (if verbalized by the patient): Female Spiritual care concerns: No Agree to blood products: Yes <Zoila Kidd PA-C - Last Filed: 07/28/24 04:11> Exam 2 Narrative: GENERAL: Well-appearing, well-nourished, and in no acute distress. HEAD: Normocephalic, atraumatic. EYES: EOMI. ENT: Nares clear, no rhinorrhea or epistaxis. Mucous membranes moist. NECK: Supple. CHEST: Satting 88% on room air, speaking in full sentences, minimally decreased breath sounds throughout all lung nick, no wheezing, rales or rhonchi HEART: Regular rate and rhythm. No murmur heard. Normal peripheral pulses. ABDOMEN: Soft, nontender, nondistended, normal active bowel sounds. EXTREMITIES: Normal range of motion. No edema. Negative Homans bilaterally SKIN: Warm, dry, no rash. NEURO: No focal deficits. Alert and oriented x3 <Zoila Kidd PA-C - Last Filed: 07/28/24 04:11> Course PHARMACEUTICAL DEVELOPMENT TECHNICIAN/PA Physician Supervision This visit was performed by both a physician and an APC. I performed all aspects of the MDM as documented. <Jerzy Guerrier MD - Last Filed: 07/28/24 06:48> Vital Signs Vital signs: Vital Signs Pulse Rate 116 H 07/28/24 00:38 Respiratory Rate 20 07/28/24 00:38 Blood Pressure 166/87 H 07/28/24 00:38 Pulse Oximetry 95 07/28/24 00:38 Oxygen Delivery Nasal Cannula 07/28/24 00:38 Oxygen Flow Rate 2 07/28/24 00:38 Pulse Rate 100 07/28/24 06:20 Respiratory Rate 20 07/28/24 06:20 Blood Pressure 121/95 H 07/28/24 04:20 Pulse Oximetry 94 07/28/24 06:20 Oxygen Delivery Nasal Cannula 07/28/24 00:45 Oxygen Flow Rate 2 07/28/24 00:45 <Zoila Kidd PA-C - Last Filed: 07/28/24 04:11> Vital Signs Pulse Rate 116 H 07/28/24 00:38 Respiratory Rate 20 07/28/24 00:38 Blood Pressure 166/87 H 07/28/24 00:38 Pulse Oximetry 95 07/28/24 00:38 Oxygen Delivery Nasal Cannula 07/28/24 00:38 Oxygen Flow Rate 2 07/28/24 00:38 Pulse Rate 100 07/28/24 06:20 Respiratory Rate 20 07/28/24 06:20 Blood Pressure 121/95 H 07/28/24 04:20 Pulse Oximetry 94 07/28/24 06:20 Oxygen Delivery Nasal Cannula 07/28/24 00:45 Oxygen Flow Rate 2 07/28/24 00:45 <Jerzy Guerrier MD - Last Filed: 07/28/24 06:48> MDM - SOB/Dyspnea MDM Narrative Medical decision making narrative: 84-year-old female with history of asthma and COPD presents to the emergency department for shortness of breath for 1 day. See HPI for further history. Triage vitals with tachycardia 116. Pt was taken off of O2 and found to be 88% on room air. Nursing staff placed patient back on 2L NC and she is now satting 95%. Lab work with leukocytosis of 11.7. ABG with pH is 7.456, pCO2 32.9, PO2 of 70.2, bicarb of 2026. Chemistries with acute hyponatremia of 127. BNP is elevated to 1150, no prior for comparison. Influenza A is positive. EKG shows sinus tachycardia with occasional supraventricular premature complexes, LBBB. Troponin undetectable. D-dimer mildly elevated at 0.64 but is normal when age adjusted. Wells score for PE is low risk. CXR without acute findings. Pt updated on results. Suspect COPD exacerbation with influenza as cause. She received DuoNeb and Solu-Medrol with improvement but is still requiring O2. Plan to admit to the hospitalist for further management. She was started on Rocephin and doxycycline. Discussed with hospitalist, Dr. Schaefer, who accepts admission. <Zoila Kidd PA-C - Last Filed: 07/28/24 04:11> Lab Data Result diagrams: 07/28/24 01:32 07/28/24 01:32 <Zoila Kidd PA-C - Last Filed: 07/28/24 04:11> Labs: Lab Results 07/28/24 Range/Units 01:32 WBC 11.7 H (4.5-10.0) K/mm3 RBC 4.48 (4.2-5.4) M/mm3 Hgb 14.5 D (12.0-15.0) g/dL Hct 42.9 (37.0-47.0) % MCV 95.8 (80-100) fl MCH 32.4 (26-34) pg MCHC 33.8 (32-36) g/dl RDW 14.7 H (11.5-14.5) % Plt Count 266 (150-375) k/mm3 MPV 8.8 (7.4-10.4) fl Immature Gran % (Auto) 0.6 H (0-0.5) % Neut % (Auto) 78.1 H (45.5-73.1) % Lymph % (Auto) 11.9 L (18.3-44.2) % Mcnairy % (Auto) 7.7 (2.6-8.5) % Eos % (Auto) 1.2 (0-4.4) % Baso % (Auto) 0.5 (0.2-1.2) % Lymph # (Auto) 1.39 (0.9-3.2) K/mm3 Mcnairy # (Auto) 0.9 H (0.1-0.6) K/mm3 Eos # (Auto) 0.1 (0-0.3) K/mm3 Baso # (Auto) 0.1 (0.0-0.1) K/mm3 Abs Immat Gran (auto) 0.07 H (0.00-0.031) K/mm3 Absolute Neuts (auto) 9.1 H (1.3-6.7) K/mm3 Absolute Nucleated RBC 0.000 (0.0-0.012) K/mm3 Nucleated RBC % 0.0 (0.0-0.2) % PT 12.6 (11.1-14.7) Seconds INR 0.9 APTT 26.9 (22.3-36.8) Seconds D-Dimer 0.64 H (<0.48) ug/mL Sodium 127 L (137-145) mmol/L Potassium 4.6 (3.4-5.0) mmol/L Chloride 91 L (98-107) mmol/L Carbon Dioxide 28 (22-30) mmol/L Anion Gap 8 (4-12) mmol/L BUN 10 (7-17) mg/dL Creatinine 0.44 L (0.7-1.0) mg/dL Estim Creat Clear Calc 69 ml/min Estimated GFR > 60 (59 - ) Glucose 117 H (65-110) mg/dL Calcium 8.8 (8.4-10.2) mg/dL Magnesium 1.6 (1.6-2.3) mg/dL Total Bilirubin 0.9 (0.2-1.3) mg/dL AST 33 (14-36) U/L ALT 12 (6-35) U/L Alkaline Phosphatase 101 (38-126) U/L Troponin I < 0.012 (0.000-0.034) ng/mL NT-Pro-B Natriuret Pep 2150 H (19.9-100) pg/mL Total Protein 7.0 (6.3-8.2) g/dL Albumin 4.0 (3.5-5.1) g/dL Influenza A (RT-PCR) Positive A (Negative) Influenza B (RT-PCR) Negative (Negative) RSV (RT-PCR) Negative (Negative) SARS-CoV-2 RNA (RT-PCR) Negative (Negative) <Zoila Kidd PA-C - Last Filed: 07/28/24 04:11> Lab Results 07/28/24 Range/Units 01:32 WBC 11.7 H (4.5-10.0) K/mm3 RBC 4.48 (4.2-5.4) M/mm3 Hgb 14.5 D (12.0-15.0) g/dL Hct 42.9 (37.0-47.0) % MCV 95.8 (80-100) fl MCH 32.4 (26-34) pg MCHC 33.8 (32-36) g/dl RDW 14.7 H (11.5-14.5) % Plt Count 266 (150-375) k/mm3 MPV 8.8 (7.4-10.4) fl Immature Gran % (Auto) 0.6 H (0-0.5) % Neut % (Auto) 78.1 H (45.5-73.1) % Lymph % (Auto) 11.9 L (18.3-44.2) % Mcnairy % (Auto) 7.7 (2.6-8.5) % Eos % (Auto) 1.2 (0-4.4) % Baso % (Auto) 0.5 (0.2-1.2) % Lymph # (Auto) 1.39 (0.9-3.2) K/mm3 Mcnairy # (Auto) 0.9 H (0.1-0.6) K/mm3 Eos # (Auto) 0.1 (0-0.3) K/mm3 Baso # (Auto) 0.1 (0.0-0.1) K/mm3 Abs Immat Gran (auto) 0.07 H (0.00-0.031) K/mm3 Absolute Neuts (auto) 9.1 H (1.3-6.7) K/mm3 Absolute Nucleated RBC 0.000 (0.0-0.012) K/mm3 Nucleated RBC % 0.0 (0.0-0.2) % PT 12.6 (11.1-14.7) Seconds INR 0.9 APTT 26.9 (22.3-36.8) Seconds D-Dimer 0.64 H (<0.48) ug/mL Sodium 127 L (137-145) mmol/L Potassium 4.6 (3.4-5.0) mmol/L Chloride 91 L (98-107) mmol/L Carbon Dioxide 28 (22-30) mmol/L Anion Gap 8 (4-12) mmol/L BUN 10 (7-17) mg/dL Creatinine 0.44 L (0.7-1.0) mg/dL Estim Creat Clear Calc 69 ml/min Estimated GFR > 60 (59 - ) Glucose 117 H (65-110) mg/dL Calcium 8.8 (8.4-10.2) mg/dL Magnesium 1.6 (1.6-2.3) mg/dL Total Bilirubin 0.9 (0.2-1.3) mg/dL AST 33 (14-36) U/L ALT 12 (6-35) U/L Alkaline Phosphatase 101 (38-126) U/L Troponin I < 0.012 (0.000-0.034) ng/mL NT-Pro-B Natriuret Pep 2150 H (19.9-100) pg/mL Total Protein 7.0 (6.3-8.2) g/dL Albumin 4.0 (3.5-5.1) g/dL Influenza A (RT-PCR) Positive A (Negative) Influenza B (RT-PCR) Negative (Negative) RSV (RT-PCR) Negative (Negative) SARS-CoV-2 RNA (RT-PCR) Negative (Negative) <Jerzy Guerrier MD - Last Filed: 07/28/24 06:48> ABG Data ABG results: 07/28/24 01:05 Puncture Site Right radial ABG pH 7.456 H ABG pCO2 32.9 L ABG pO2 70.2 L ABG PO2/FiO2 Ratio 2.51 ABG HCO3 22.7 ABG O2 Saturation 95.0 ABG O2 Content 19.6 ABG Base Excess -0.4 A-a Gradient 90.6 Oxyhemoglobin 92.9 Total Hemoglobin 15.0 O2 Delivery Device Nasal cannula O2 Liters/Min 2.0 FiO2 28 <Zoila Kidd PA-C - Last Filed: 07/28/24 04:11> 07/28/24 01:05 Puncture Site Right radial ABG pH 7.456 H ABG pCO2 32.9 L ABG pO2 70.2 L ABG PO2/FiO2 Ratio 2.51 ABG HCO3 22.7 ABG O2 Saturation 95.0 ABG O2 Content 19.6 ABG Base Excess -0.4 A-a Gradient 90.6 Oxyhemoglobin 92.9 Total Hemoglobin 15.0 O2 Delivery Device Nasal cannula O2 Liters/Min 2.0 FiO2 28 <Jerzy Guerrier MD - Last Filed: 07/28/24 06:48> Discharge Plan Discharge Clinical Impression: Influenza A, COPD exacerbation, Acute hypoxic respiratory failure, Acute hyponatremia <Zoila Kidd PA-C - Last Filed: 07/28/24 04:11> Patient Disposition: Still a Patient <Zoila Kidd PA-C - Last Filed: 07/28/24 04:11> Condition: Stable <Zoila Kidd PA-C - Last Filed: 07/28/24 04:11>
--- OUTSIDE RECORDS SUMMARY | 2024-07-28 00:52 | XMS_ITS | Encounter Summary ---
Author Organization [facility] Address [address] [place] [address] Phone Care Team Providers Care Puller Over Name Role Phone Linnette Valencia MD Primary Care Provider [phone] Asha Saleh RN Unavailable Rosibel vailable Encounter Details Date Type Department Care Team (Latest Contact Info) Description 11/29/2022 Orders Only [facility] Scanning, Provider Social History Tobacco Use Types Packs/Day Years Used Date Smoking Tobacco: Former Smokeless Tobacco: Never PHQ-2 Answer Date Recorded PHQ-2 Total Score (If total score is 3 or more points, staff should administer the PHQ-9) 0 07/10/2021 Comments Unknown Sex and Gender Information Value Date Recorded Sex Assigned at Not on file Legal Sex Female 7:48 AM ORAL HEALTH THERAPIST Gender Identity Not on file Sexual Orientation Not on file documented as of this encounter Plan of Treatment Not on file documented as of this encounter Procedures Procedure Name Priority Date/Time Associated Diagnosis Comments PULMONARY - RESULT SCAN 11/29/2022 documented in this encounter Results * PULMONARY - RESULT SCAN (11/29/2022) Anatomical Region Laterality Modality Other us Provider Scanning Final Result documented in this encounter Visit Diagnoses Not on filedocumented in this encounter Care Teams Puller Over Relationship Specialty Start Date End Date Linnette Valencia MD PCP - General 01/19/17 Asha Saleh, RN Registered Nurse Pulmonary Disease 04/26/22 documented as of this encounter
--- OUTSIDE RECORDS SUMMARY | 2024-07-28 00:52 | XMS_ITS | Encounter Summary ---
Author Organization [facility] Address [address] [place] [address] Care Team Providers Care Automotive Instructor Name Role Phone Linnette Valencia MD Primary Care Provider [phone] Encounter Details Date Type Department Care Team (Late st Contact Info) Description 01/24/2020 Lab Requisition [facility] [address] [place] [address] Héctor Smith MD [address] [place] [address] Social History Tobacco Use Types Packs/Day Years Used Date Smoking Tobacco: Never Assessed Sex and Gender Information Value Date Recorded Sex Assigned at Not on file Gender Identity Not on file Sexual Orientation Not on file documented as of this encounter Plan of Treatment Not on file documented as of this encounter Procedures Procedure Name Priority Date/Time Associated Diagnosis Comments DERMATOPATHOLOGY Routine 01/23/2020 12:0 0 AM CDT documented in this encounter Results * DERMATOPATHOLOGY (01/23/2020 12:00 AM CDT) Case Report Dermatopathology Report ? Case: [id number] ? Authorizing Provider: ??Héctor Smith MD ?Collected: ? 01/23/2020 12:00 AM ? Ordering Location: ? [facility] ?Received: ?01/24/2020 11:52 AM ? Pathologist: ? Nayana Grier MD ? Specimens: ?? A) - Skin, left mid jawline ? B) - Skin, right mid pretibia ? C) - Skin, right lower pretibia ? 0 4:29 PM CDT DERMATOPATHOLOGY LABORATORY Final Diagnosis Specimen A. SKIN, left mid jawline: SQUAMOUS CELL CARCINOMA IN SITU, PRESENT AT THE BASE OF THE SPECIMEN (D04.39) (see microscopic description and comment) Specimen B. SKIN, right mid pretibia: SUPERFICIAL (FOCALLY INVASIVE) SQUAMOUS CELL CARCINOMA ARISING IN A SQUAMOUS CELL CARCINOMA IN SITU (C44.722) (see microscopic description) Specimen C. SKIN, right lower pretibia: SQUAMOUS CELL CARCINOMA, WELL DIFFERENTIATED (C44.722) 0 4:29 PM CDT DERMATOPATHOLOGY LABORATORY Clinical History A-C: R/O SCCIS, BCC, SCC, HAK. 0 4:29 PM CDT DERMATOPATHOLOGY LABORATORY Gross Description Specimen A: Received is one formalin filled container labeled with the patient's name and designated left mid jawline. The specimen consists of a shave biopsy measuring [id number]. Jar 0. Specimen B: Received is one formalin filled container labeled with the patient's name and designated right mid pretibia. The specimen consists of a shave biopsy (2 pieces) measuring [id number], bisected, & [id number]. Jar 0+. Specimen C: Received is one formalin filled container labeled with the patient's name and designated right lower pretibia. The specimen consists of a shave biopsy measuring [id number]. Jar 0. 0 4:29 PM T DERMATOPATHOLOGY LABORATORY Microscopic Description Specimen A. SKIN, left mid jawline: The epidermis shows parakeratosis, full thickness disorderly maturation of keratinocytes, mitoses at different levels, and dyskeratotic cells. The lesion extends to the base of the biopsy. COMMENT: An invasive squamous cell carcinoma cannot be ruled out. Specimen B. SKIN, right mid pretibia: The epidermis shows parakeratosis, full thickness disorderly maturation of keratinocytes, mitoses at different levels, and dyskeratotic cells. Focal nests are present in the dermis. Specimen C. SKIN, right lower pretibia: Arising in the epidermis and extending into the dermis there are irregularly shaped aggregates of keratinocytes showing evidence of premature cornification. 0 4:29 PM T DERMATOPATHOLOGY LABORATORY Disclaimer An external and internal positive and negative controls are appropriate for the histochemical, immunohistochemical and immunofluorescence stain(s) in this case (if any), except where stated explicitly. The performance characteristics of the stain(s) cited in this report were developed and its performance characteristic determined by the Dermatopathology Laboratory at [facility], directed by Dr. Rosa Cerna. These tests need not be, and therefore are not, approved by the [place] Food and Drug Administration. The tests are used for clinical purposes. Billing Codes Specimen Charges Stain Charges 83113 [id number] 1 1 1 0 4:29 PM CDT DERMATOPATHOLOGY LABORATORY Embedded Images 0 4:29 PM T DERMATOPATHOLOGY LABORATORY Pathology/Cytology TISSUE SPECIMEN FROM SKIN / Unknown 01/23/2020 01/24/2020 11:52 AM CDT Miscellaneous samples (specimen) TISSUE SPECIMEN FROM SKIN / Unknown 01/23/2020 01/24/2020 11:52 AM CDT Miscellaneous samples (specimen) TISSUE SPECIMEN FROM SKIN / Unknown 01/23/2020 01/24/2020 11:52 AM CDT Héctor Smith MD LAB - PATHOLOGY/CYTO LOGY ORDERABLES Performing Organization Address City/State/[facility] Co de Phone Number DERMATOPATHOLOGY LABORATORY [facility] - Department of Dermatology Wrong Address Clerk Center/[address] [phone] documented in this encounter Visit Diagnoses Not on filedocumented in this encounter Care Teams Automotive Instructor Relationship Specialty Start Date End Date Linnette Valencia MD [address] [place] [address] PCP - General 07/06/18 documented as of this encounter
--- OUTSIDE RECORDS SUMMARY | 2024-07-28 00:52 | XMS_ITS | Clinical Summary ---
Author Organization [facility] Address [address] [place] [address]. [place], [place] [id number] [place] [address] Care Team Providers Care Bpm Architect Name Role Phone Linnette Valencia MD Primary Care Provider [phone] Allergies Active Allergy Reactions Criticality Noted Date Comments Penicillins Unknown 12/08/2022 Sulfa Antibiotics Unknown 12/08/2022 Medications No known medications Social History Tobacco Use Types Packs/Day Years Used Date Smoking Tobacco: Never Smokeless Tobacco: Never Tobacco Cessation:Counseling Given: Not Answered Alcohol Use Standard Drinks/Week Comments Not Currently 3.3 (1 standard drink = 0.6 oz p ure alcohol) Comments Unknown Sex and Gender Information Value Date Recorded Sex Assigned at Not on file Legal Sex Female 4:50 PM CDT Gender Identity Not on file Sexual Orientation Not on file Last Filed Vital Signs Vital Sign [place] Time Taken Comments Blood Pressure 143/86 12/08/2022 9:21 PM CDT Pulse 89 12/08/2022 9:21 PM CDT Temperature 36.5 ??C (97.7 ??F) 12/08/2022 4:56 PM CD T Respiratory Rate 16 12/08/2022 9:21 PM CDT Oxygen Saturation 95% 12/08/2022 9:21 PM CDT Inhaled Oxygen Concentration - - Weight 59 kg (130 lb) 12/08/2022 4:56 PM CDT Height 157.5 cm (5' 2 ) 12/08/2022 4:56 PM CDT Body Mass Index 23.78 12/08/2022 4:56 PM CDT Plan of Treatment Health Maintenance Due Date Last Done Comments Annual Medicare Wellness Visit 2007 Dexa Scan (General) 2007 Zoster Vaccines (2 of 3) 01/26/2015 12/01/2014 RSV Immunization or 60+ Years (1 - 1-dose 75+ series) 2017 COVID-19 Vaccine ( season) 2024 04/03/2022, 10/07/2021, 04/08/2021, Additional history exists Influenza Adult (#1) 2024 03/30/2019, 03/26/2018, 03/08/2017, Additional history exists DTaP, Tdap and Td Vaccines (2 - Td or Tdap) 11/03/2030 11/03/2020 Pneumococcal Vaccine: 65+ Years Completed 03/26/2020, 01/08/2015 Meningococcal B Vaccine Aged Out No l onger eligible based on patient's age to complete this topic Meningococcal Vaccine Aged Out No akash bernadine eligible based on patient's age to complete this topic RSV Immunizations Under 20 Months Aged Out No longer eligible based on patient's age to complete this topic Insurance [employer] Care Teams Bpm Architect Relationship Specialty Start Date End Date Linnette Valencia MD [address] [place] [address] PCP - General FAMILY PRACTICE 12/08/22
--- OUTSIDE RECORDS SUMMARY | 2024-07-28 00:52 | XMS_ITS | Clinical Summary ---
Author Organization [facility] Deisy conrad Mckenzieamyyajaira Address [address] [address] Care Team Providers Care Credit Relationship Manager Name Role Phone Linnette Valencia MD Primary Care Provider [phone] Allergies Active Allergy Reactions Criticality Noted Date Comments Penicillins Itching,Rash Medium 02/20/2010 Other reaction(s): Unknown Other reaction(s): Unknown Sulfa (Sulfonamide Antibiotics) Rash,Unknown Medium 02/20/2010 Other reaction(s): Unknown Other reaction(s): Unknown Medications montelukast (SINGULAIR) 10 mg tablet montelukast 10 mg tablet Active fluticasone propionate (Flovent HFA) 220 mcg/actuation HFA Aerosol Inhaler Flovent HFA 220 mcg/actuation aerosol inhaler Active tiotropium (SPIRIVA) 18 mcg capsule Take 1 Capsule by inhalation. Active albuterol HFA 90 mcg inhaler Take 1 Puff by inhalation every 4 hours as needed. Active ibandronate (BONIVA) 150 mg tablet ibandronate 150 mg tablet Active salmeteroL (SEREVENT DISKUS) 50 mcg/dose Disk with Device Take 1 Puff by inhalation every 12 hours. Active levalbuterol (XOPENEX) 1.25 mg/3 mL Solution for Nebulization Take 1.25 mg by inhalation every 4 hours as needed. Active levothyroxine (EUTHYROX) 50 mcg tablet Euthyrox 50 mcg tablet 01/05 Active levoFLOXacin (LEVAQUIN) 500 mg tablet TK 1 T PO Q 24 H Active hydroCHLOROthia zide 25 mg tablet hydrochlorothiazide 25 mg tablet 019 Active melatonin 3 mg Tablet Take 3 mg by mouth. Active multivitamin (DAILY-TANYA) tablet Take 1 Tablet by mouth. Active zolpidem (AMBIEN) 10 mg tablet Take 5 mg by mouth. 021 Active triamcinolone acetonide (Kenalog) 10 mg/mL Suspension Kenalog 10 mg/mL suspension for injection In office injection administered by the provider Active risperiDONE (RisperDAL) 0.25 mg Tablet risperidone 0.25 mg tablet Active solifenacin (VESICARE) 5 mg Tablet Vesicare 5 mg tablet Active Active Problems Problem Noted Date Diagnosed Date Erythrocytosis 10/09/2020 Family History Relation Name Status Comments Daughter Alive Father Mother Son Alive Social History Tobacco Use Types Packs/Day Years Used Date Smoking Tobacco: Former Cigarettes Q uit: 1976 Smokeless Tobacco: Never Alcohol Use Standard Drinks/Week Comments Yes 2 (1 standard drink = 0.6 oz pur e alcohol) Comments Unknown Sex and Gender Information Value Date Recorded Sex Assigned at Not on file Legal Sex Female 2:48 PM CDT Gender Identity Not on file Sexual Orientation Not on file Last Filed Vital Signs Vital Sign Reading Time Taken Comments Blood Pressure 137/78 10/27/2020 11:17 AM CDT Pulse 97 10/27/2020 11:17 AM CDT Temperature 36.7 ??C (98 ??F) 10/27/2020 11:17 AM CDT Respiratory Rate - - Oxygen Saturation 96% 10/27/2020 11:17 AM CDT Inhaled Oxygen Concentration - - Weight 66.7 kg (147 lb) 10/27/2020 11:17 AM CDT Height 157.5 cm (5' 2 ) 10/27/2020 11:17 AM CDT Body Mass Index 26.89 10/27/2020 11:17 AM CDT Plan of Treatment Upcoming Encounters Date Type Department Care Team (Late st Contact Info) Description 09/18/2024 3:00 PM CDT Office Visit [facility] Oncology and Hematology - [place] [address] [place] [address] Jay Gorman MD [address] [place] [address] Health Maintenance Due Date Last Done Comments DTAP/TDAP/TD VACCINES (1 - Tdap) 1961 ZOSTER VACCINE (1 of 2) 1992 OSTEOPOROSIS SCREENING 2007 RSV VACCINE (60+ or ) (1 - 1-dose 75+ series) 2017 INFLUENZA VACCINE (#1) 2024 03/27/2018 PNEUMOCOCCAL VACCINE 65+ YEARS Completed 03/26/2020 , 01/08/2015 Insurance [employer] PPO MCR Care Teams Credit Relationship Manager Relationship Specialty Start Date End Date Linnette Valencia MD [address] [place] [address] PCP - General Family Practice 10/09/20
--- OUTSIDE RECORDS SUMMARY | 2024-07-28 00:52 | XMS_ITS | Clinical Summary ---
Author Organization [facility] Address [address] [place] [address] Care Team Providers Care [employer] Recruiter Name Role Phone Linnette Valencia MD Primary Care Provider [phone] Source Comments [facility],non-owned Affiliates and Associated Physician Practices is amultiple site organization consisting of ambulatory clinics and hospital sitesin [place], [place], [place] and [place]. This disclosure is being madepursuant to the Care Everywhere program and may not contain all information available regarding this patient. Last updated 18.[facility] [employer] Social History Tobacco Use Types Packs/Day Years Used Date Smoking Tobacco: Never Assessed Sex and Gender Information Value Date Recorded Sex Assigned at Not on file Gender Identity Not on file Sexual Orientation Not on file Plan of Treatment Health Maintenance Due Date Last Done Comments BONE DENSITY TESTING 1942 DTAP/TDAP/TD VACCINES (1 - Tdap) 1961 PNEUMOCOCCAL VACCINE 50+ (1 of 1 - PCV) 1992 ZOSTER VACCINE (1 of 2) 1992 Respiratory Syncytial Virus (RSV) Vaccine Pt: or over 60 yrs (1 - 1-dose 75+ series) 2017 COVID-19 VACCINE ( - 2023-2 5 season) 2024 INFLUENZA VACCINE (#1) 2024 DEPRESSION SCREENING 06/27/2024 MEDICARE AWV ? CALENDAR YEAR 2024 HEPATITIS B VACCINE Aged Out No longe r eligible based on patient's age to complete this topic HIB VACCINE Aged Out No longer eligi ble based on patient's age to complete this topic HPV VACCINE Aged Out No longer eligi ble based on patient's age to complete this topic MENINGOCOCCAL (Group B) VACCINE Aged Out No longer eligible based on patient's age to complete this topic MENINGOCOCCAL VACCINE Aged Out No akash bernadine eligible based on patient's age to complete this topic Care Teams Intel Recruiter Relationship Specialty Start Date End Date Linnette Valencia MD [address] [place] [address] PCP - General 07/06/18
--- OUTSIDE RECORDS SUMMARY | 2024-07-28 00:52 | XMS_ITS | Data Portability ---
Author Organization [place] [facility] [employer], Main Office Address [address] [place] [address] Care Team Providers Care [employer]man [employer] Name Role Phone MASTER LUNDBERG Primary Care Provider MASTER LUNDBERG Referring Provider [phone] Assessment Encounter Date Assessment Date Assessment LastModified by Organization Details LastModified Time 01/14/2023 01/14/2023 Impression: Lias hodges complains of acromioclavicular joint pain in both shoulders we that she lays on her size. She has tenderness at the AC joints. Is possible that she has subchondral bone bruising at the AC joint which has been exacerbated by her coughing fits and her protracted shoulder posture is a which tend to overload the AC joints. We have discussed her options and she would like to try cortisone shot which was administered after ChloraPrep prep using 10 mg of Kenalog and 1 cc of 0.5% ropivacaine. Risk of side effects including risk of infection discussed. I would also recommend a course of physical therapy focusing on her posture and her scapular protraction and correcting this and strengthening her periscapular musculature bilaterally. I will see her back in 6 weeks assess her progress. If anything changes she will call. 30 minutes were spent in total care this patient more than half the time spent in [id number] care. [email or web address] Not available 01/15/2023 13:07:33 03/19/2024 03/19/2024 Today the twila t is exam was fairly benign the left lower extremity however her x-rays are suspicious for a nondisplaced femoral neck fracture. Surprisingly she has no pain in the groin or thigh or with provocative maneuvers. I have advised the patient we need to get an MRI scan to rule out fracture her x-rays are suspicious for a nondisplaced femoral neck fracture. She also has some cystic formation in the femoral head medially. We knee to rule out acute onset her fracture I have advised her that she needs to be nonweightbearing with a walker full-time until we get the MRI scan. She stated I am not going to do that and has refused to go nonweightbearing as it was too much of an inconvenience for her. I told her that if she did displace what appears to be a fracture that she would require surgical intervention likely a total hip arthroplasty several times I impressed upon her that she should be nonweightbearing until we get the MRI scan I told her we could get the MRI scan within next day or 2 we will order a stat MRI of her left hip she wants again declined and states she is not going to use a walker or be nonweightbearing because she has no pain in the groin or thigh. I did tell her that this is not unheard of to have no pain with an impending fracture and if the fracture is present that we would need to do a hip pinning to avoid displacement. She was not too happy about hearing about surgery I did tell her that using a walker but protect her from displacing the fracture further if this truly is a fracture she again declined. We will see her back have Dr. Christina see her when the MRI scan is completed for further recommendations. The patient voiced understanding but again is being noncompliant with my treatment recommendations she will call for any further problems difficulties or questions. [email or web address] Not available 03/19/2024 11:54:01 Plan of Treatment Reminders Order Date Submit Date Provider Last Modified By Organization Details Last Modified Time Details Appointments None recorded. Lab None recorded. Referral None recorded. Procedures injection/a spiration joint/bursa (PROC) - in office procedure, administere d by provider 2022 023 [email or web address] In-Office Order, Internal Use Only DO Not Attach Compendium DO Not Attach Compendium, Do Not Delete/merge, [id number] 09:52:12 Surgeries None recorded. Imaging XR, shoulder 2022 023 [email or web address] [facility] [place], [address], [place], [address], 09:36:56 XR, hip + pelvis, unilateral 2023 024 [email or web address] [facility], [address], [place], [address], 4 12:51:09 MRI, hip, w/o contrast - Please give patient disc.....pl ease contact patient to schedule this is a STAT order 2023 024 [email or web address] [facility], [address], [place], [address], 4 16:04:04 Medication Orders Kenalog 10 mg/mL suspension for injection 2022 023 [id number], [address], [place], [place], [id number], 4 11:10:35 ropivacaine (PF) 5 mg/mL (0.5 %) injection solution 2022 023 [id number], [address], [place], [place], [id number], 4 11:11:27 Patient TargetsNo targets recorded. Patient InstructionsNo instructions recorded. Reason for Referral None Reported. Results Created Date Observation Date Name Description Value Unit Range Abnormal Flag Note LastModifiedBy Organization Detail LastModifiedTime 06/12/20 XR, hip + pelvi s, unila teral No observ ation record ed. [id number] [facility] [address], [place], [address], 08/25/2022 12:48:24 01/15/20 23 XR, shoul verona No observ ation record ed. [email or web address] [facility] [address], [place], [address], 01/15/2023 13:02:53 03/19/20 24 XR, hip + pelvi s, unila teral No observ ation record ed. [email or web address] [facility] [address], [place], [address], 03/19/2024 11:58:44 03/22/20 24 03/22/2024 MRI, hip, w/o contr ast No observ ation record ed. [email or web address] [facility] [address], [place], [address], 03/22/2024 16:04:11 Result Notes None recorded. Problems Name Problem SNOMED Code Status Onset Date Resolution Date Notes Provider Name and Address Organization Details Recorded Time Osteoarthr itis of knee 506535060 Active Not Available [facility] 3 12:45:57 Shoulder joint pain 373917312 Active Not Available [facility] 3 12:45:57 Enthesopat hy of knee 90945122 Active Not Available [facility] 3 12:45:57 Osteoarthr itis 876467767 Active Not Available [facility] 3 12:45:57 Pain in limb 74682579 Active Not Available [facility] 3 12:45:57 Bilateral shoulder joint pain 4329179429425 9104 Active 2022 DANNI Almeida, [facility] 3 11:49:41 Pain of left hip joint 5374806720383 00 Active 2023 ANTHONY Degroot, [facility] 4 11:13:49 Problem Notes None recorded. Procedures Surgical History Date Name Laterality Status Provider Name and Address Organization Details Recorded Time Tonsillectomy completed Not Available [facility] 08/25/2022 12:45:34 Hysterectomy completed Not Available [facility] 08/25/2022 12:45:34 Imaging Results Imaging Date Name Status LastModified by Organ [facility] Details LastModified Time 06/12/2021 XR, hip + pelvis, unilateral completed [id number] [facility] [address], [place], [address], 08/25/2022 12:48:24 01/14/2023 XR, shoulder completed [email or web address] [facility] [address], [place], [address], 01/15/2023 13:02:53 03/19/2024 XR, hip + pelvis, unilateral completed [email or web address] [facility] [address], [place], [address], 03/19/2024 11:58:44 03/22/2024 MRI, hip, w/o contrast completed [email or web address] [facility] [address], [place], [address], 03/22/2024 16:04:11 Procedure Notes None recorded. Medical Equipment None Reported. Allergies Allergen ID Allergen Name Allergen Category Reaction Reaction Severity Criticality Documentation Date Start Date Code Code System Note Provider Name and Address Organization Details Recorded Time 09090 Substance with sulfonami de structure and antibacte rial mechanism of action (substanc e) medicatio n Not available Not available Not available 08/25/2022 70937 8003 SNOMED Not Available [facility] 3 12:48:22 37291 Product containin g penicilli n and antibioti c (product) medicatio n rash Not available Not available 08/25/2022 02894 05 SNOMED Not Available [facility] 3 12:48:23 Medications Name Sig Start Date Stop Date Status Note LastModified by Organization Details LastModified Time cyclobenzap rine 10 mg tablet TAKE 1 TABLET BY MOUTH TWICE DAILY NEEDED FOR MUSCLE SPASM 03/19 completed Not Available Not Available Not Available clotrimazol e 10 mg melo 03/19 completed Not Available Not Available Not Available nystatin 100,000 unit/mL oral suspension ADMINISTE R 2.5 ML IN EACH SIDE OF THE MOUTH FOUR TIMES DAILY 03/19 completed Not Available Not Available Not Available potassium chloride ER 10 mEq capsule,ext ended release TAKE 1 CAPSULE BY MOUTH DAILY 01/14 completed Not Available Not Available Not Available prednisone 10 mg tablet 03/19 completed Not Available Not Available Not Available doxycycline hyclate 100 mg capsule TAKE ONE CAPSULE BY MOUTH TWICE DAILY FOR 7 DAYS 06/12 completed Not Available Not Available Not Available clindamycin HCl 300 mg capsule TAKE 1 CAPSULE BY MOUTH EVERY 6 HOURS 06/12 completed Not Available Not Available Not Available trazodone 50 mg tablet TAKE 1 TABLET BY MOUTH EVERY DAY AT BEDTIME 03/19 completed Not Available Not Available Not Available cetirizine 10 mg tablet TAKE 1 TABLET BY MOUTH EVERY DAY NEEDED FOR ALLERGY SYMPTOMS 03/19 completed Not Available Not Available Not Available azithromyci n 250 mg tablet 07/02 completed Not Available Not Available Not Available fluconazole 150 mg tablet TAKE 1 TABLET BY MOUTH 1 TIME FOR 1 DAY 03/19 completed Not Available Not Available Not Available tolterodine ER 4 mg capsule,ext ended release 24 hr 07/02 completed Not Available Not Available Not Available hydrocodone 5 mg-acetamin ophen 325 mg tablet 07/02 completed Not Available Not Available Not Available prochlorper azine maleate 5 mg tablet TAKE 1 TABLET BY MOUTH EVERY 8 HOURS NEEDED FOR NAUSEA OR VOMITING 03/19 completed Not Available Not Available Not Available fluorouraci l 5 % topical cream 07/02 completed Not Available Not Available Not Available prednisone 5 mg tablet TAKE 4 TABLETS BY MOUTH DAILY FOR 7 DAYS THEN TAKE 2 TABLETS BY MOUTH DAILY FOR 7 DAYS THEN TAKE 1 TABLET BY MOUTH DAILY FOR 7 DAYS 03/19 completed Not Available Not Available Not Available risperidone 0.25 mg tablet 06/12 completed Not Available Not Available Not Available potassium chloride ER 10 mEq tablet,exte nded release TAKE 1 TABLET BY MOUTH EVERY DAY WITH FOOD 03/19 completed Not Available Not Available Not Available acetaminoph en 300 mg-codeine 30 mg tablet 06/12 completed Not Available Not Available Not Available tramadol 50 mg tablet TAKE 1 TABLET BY MOUTH EVERY 6 HOURS NEEDED FOR PAIN 06/12 completed Not Available Not Available Not Available Serevent Diskus 50 mcg/dose powder for inhalation INHALE 1 PUFF BY MOUTH TWICE DAILY active Not Available Not Available No t Available Kenalog 10 mg/mL suspension for injection in office procedure , administe red by provider 03/19 completed [facility]: 0003- 0494- 20 Not Available Not Available Not Available doxycycline monohydrate 100 mg capsule 06/12 completed Not Available Not Available Not Available levothyroxi ne 50 mcg tablet TAKE 1 TABLET BY MOUTH ONCE DAILY IN THE MORNING 03/19 completed Not Available Not Available Not Available cephalexin 500 mg capsule TAKE 1 CAPSULE BY MOUTH EVERY 6 HOURS FOR 7 DAYS 03/19 completed Not Available Not Available Not Available nystatin 100,000 unit/gram topical cream APPLY TO RASH UNDER BREASTS TID FOR 3 WEEKS UTD. 03/14 completed Not Available Not Available Not Available sertraline 25 mg tablet TAKE 1 TABLET BY MOUTH DAILY 03/19 completed Not Available Not Available Not Available omeprazole 20 mg capsule,del ayed release TAKE 1 CAPSULE BY MOUTH DAILY active Not Available Not Available No t Available montelukast 10 mg tablet active Not Available Not Available Not Available fluticasone propionate 220 mcg/actuati on HFA aerosol inhaler INHALE 4 PUFFS BY MOUTH TWICE DAILY. RINSE MOUTH WITH WATER AFTER USE. DO NOT SWALLOW active Not Available Not Available No t Available hydrochloro thiazide 25 mg tablet TAKE 1 TABLET BY MOUTH ONCE DAILY 01/14 completed Not Available Not Available Not Available mupirocin 2 % topical ointment APPLY TO THE WOUND TWICE DAILY AFTER CLEANING AND DRYING AREA DIRECTED 01/14 completed Not Available Not Available Not Available zolpidem 5 mg tablet TAKE 1 TABLET BY MOUTH NIGHTLY NEEDED FOR SLEEP 03/19 completed Not Available Not Available Not Available ibuprofen 600 mg tablet 03/19 completed Not Available Not Available Not Available polyethylen e glycol 3350 17 gram/dose oral powder 07/02 completed Not Available Not Available Not Available levofloxaci n 500 mg tablet 07/04 completed Not Available Not Available Not Available estradiol 0.01% (0.1 mg/gram) vaginal cream 01/14 completed Not Available Not Available Not Available levofloxaci n 750 mg tablet TAKE 1 TABLET BY MOUTH DAILY active Not Available Not Available No t Available zolpidem 10 mg tablet 06/12 completed Not Available Not Available Not Available albuterol sulfate HFA 90 mcg/actuati on aerosol inhaler INHALE 2 PUFFS BY MOUTH EVERY 4 HOURS NEEDED FOR WHEEZING active Not Available Not Available No t Available oxybutynin chloride 5 mg tablet 07/02 completed Not Available Not Available Not Available neomycin 3.5 mg/g-polymy sophie B 10,000 unit/g-dexa meth 0.1 % eye oint active Not Available Not Available Not Available Spiriva with HandiHaler 18 mcg and inhalation capsules INHALE CONTENTS OF 1 CAPSULE ONCE DAILY USING HANDIHALE R active Not Available Not Available No t Available [employer]-T[facility]in DM 10 mg-100 mg/5 mL oral syrup TK 5 ML PO Q 4 H FOR UP TO 10 DAYS PRF COUGH 07/03 completed Not Available Not Available Not Available Vesicare 5 mg tablet 07/02 completed Not Available Not Available Not Available ibandronate 150 mg tablet TAKE 1 TABLET BY MOUTH 1 TIME A MONTH 01/14 completed Not Available Not Available Not Available Asmanex Twisthaler 220 mcg/actuati on(120 doses) breath activated inhlr USE 4 INHALATIO NS BID 07/02 completed Not Available Not Available Not Available Rozerem 8 mg tablet 07/02 completed Not Available Not Available Not Available lidocaine (PF) 10 mg/mL (1 %) injection solution In office injection administe red by the provider 06/12 completed [facility]: 0409- 4276- [phone] Not Available Not Available Not Available Mucus Relief ER 600 mg tablet, extended release TK 1 T PO Q 12 H FOR 5 DAYS. 03/14 completed Not Available Not Available Not Available sodium,pota ssium,mag sulfates 17.5 gram-3.13 gram-1.6 gram oral soln MIX AND DRINK DIRECTED 03/19 completed Not Available Not Available Not Available ropivacaine (PF) 5 mg/mL (0.5 %) injection solution in office procedure , administe red by provider 03/19 completed [facility] [phone] -[phone]- [phone] Not Available Not Available Not Available Arnuity Ellipta 200 mcg/actuati on powder for inhalation INHALE 2 PUFFS BY MOUTH DAILY. RINSE MOUTH WITH WATER AFTER USE. DO NOT SWALLOW 03/19 completed Not Available Not Available Not Available Fluzone High-Dose (PF) 180 mcg/0.5 mL intramuscul ar syringe active Not Available Not Available N ot Available Fluzone High-Dose 1627-6754 (PF) 180 mcg/0.5 mL intramuscul ar syringe active Not Available Not Available N ot Available Fluzone High-Dose 2114-4402 (PF) 180 mcg/0.5 mL intramuscul ar syringe active Not Available Not Available N ot Available Fluzone High-Dose 9962-0487 (PF) 180 mcg/0.5 mL intramuscul ar syringe active Not Available Not Available N ot Available Fluad 2019- 65yr up(PF)45 mcg(15 mcgx3)/0.5 mL intramuscul ar syringe ADM 0.5ML IM UTD 06/12 completed Not Available Not Available Not Available Vitals Date Recorded Body mass index (BMI) Body height Body weight Provider Name and Address Organization Details Last Updated DateTime 08/25/2022 28 kg/m2 154.94 cm 70551.67 g Not Available [facility] 08/25/2022 12:45:45 Date Recorded Body height Provider Name an d Address Organization Details Last Updated DateTime 01/14/2023 154.94 cm Lyssaleticia Walker [employer] 01/14/2023 12:04:07 Date Recorded Body mass index (BMI) Body weight Provider Name and Address Organization Details Last Updated DateTime 01/14/2023 24.8 kg/m2 04400.6 g Lyssaleticia Walker [employer] 01/14/2023 12:04:10 Date Recorded Body height Provider Name an d Address Organization Details Last Updated DateTime 03/19/2024 157.48 cm Gladys Bonilla [employer] 03/19/2024 11:09:14 Date Recorded Body mass index (BMI) Body weight Provider Name and Address Organization Details Last Updated DateTime 03/19/2024 24 kg/m2 64773.6 g Gladys Chad, [employer] 03/19/2024 11:09:17 Social History Question Answer Notes LastModified by Organizat ion Details LastModified Time Tobacco Smoking Status Former Smoker Not Available [facility] 08/25/2022 12:45:34 What Is Your Level Of Alcohol Consumption? Heavy [email or web address] Information not available 03/19/2024 When Did You Quit Smoking? 16+yearssinc elastcigaret te [id number] Information not available 08/25/2022 Sex: Unknown Functional Status None recorded. Mental Status None recorded. Family History Nothing Reported. Medical History Condition Response CANCER: SPECIFY Y LUNG DISEASE/DISORDER Y COPD Y Gynecological HistoryNo gynecological history recorded. Obstetrics History GPAL:G 0 P 0 0 0 0 Past Encounters Encounter ID Performer Location Encounter Start Date Encounter Closed Date Diagnosis/Indication Diagnosis SNOMED-CT Code Diagnosis ICD10 Code Diagnosis Note [id number] [facility] [address] [place] [address] 06/12/2021 00:00:00 06/12/2021 16:09:53 [id number] Juan Luz MD [facility] [address] [place] [address] 01/14/2023 11:31:10 01/17/2023 09:36:56 Bilateral shoulder joint pain 1797628690 9128742 M25.511 M25.301 [id number] [facility] [address] [place] [address] 03/19/2024 10:53:04 03/19/2024 12:01:45 Pain of left hip joint 3212374406 10525 M25.552 Health Concerns Section Related Observation LastModified by Organization Detai ls LastModified Time None Recorded Concern Status LastModified by Organization Details LastModified Time None Recorded Advance Directives Directive None Recorded Payers Encounter Date Sequence Insurance Name Policy Number Policy Hernandez Covered Member ID Hernandez Member ID Guarantor Name 01/14/2023 1 [employer] [id number] Kristin Townsend [id number] Kristin Townsend 03/19/2024 1 [employer] [id number] Kristin Townsend [id number] Kristin Townsend Notes Date Note Type Note Provider Name and Address Organization Details Recorded Time 01/14/2023 text/html Patient is an 82-year-old female referred by Dr. Lundberg for evaluation of her shoulders. Her chief complaint is pain on the tops of her shoulders when she sleeps on her sides. That is the only time her shoulders bother her. She denies any numbness or tingling. She points to the AC joints as the location of her pain. Her symptoms started 2 years ago. She has tried Aleve. Symptoms became significantly worse when she developed severe coughing and her coughing fits were so severe that her upper arms became painful. She spent a week in the hospital in September and was eventually diagnosed with bronchiectasis. She is doing much better now. She denies any injury. Juan Luz MD [address], [place], [address], [employer] 01/17/2023 15:04:50 03/19/2024 text/html the patient is a n 83-year-old female who presents with left posterior hip and buttock pain. She states it has been going on for 4-5 days now denies any specific trauma or injury. She is on chronic inhalers also has recently completed a couple of courses of prednisone all related to her asthma. She states she is not a smoker she does drink at least 2 glasses of wine per day every day on questioning. She is a former smoker quit about 16 years ago. The patient denies any groin or anterior thigh pain she states it is localized to the piriformis region she does have some tenderness in the buttock. Her exam maneuvers today for her left hip were unremarkable she comes in ambulating with normal gait again without groin or thigh pain by her report. She denies any loss of motion trauma no acute onset states that pain was enough to bring her in for x-ray evaluation she comes in today for the above-listed symptoms. States the pain is about a 4 on a scale 1-10 in the posterior buttock region. New past medical history sheet was reviewed and signed on the intake sheet of today's date drug allergies current medications family social history previous surgical history 10 point review of systems was reviewed and discussed in detail today with the patient. MICHAEL Nazario [address], [place], [address], [employer] 03/19/2024 12:01:38 OBGyn Episode No OBEpisode recorded.
--- OUTSIDE RECORDS SUMMARY | 2024-07-28 00:52 | XMS_ITS | Encounter Summary ---
Author Organization [facility] Address [address] [facility] [place] [address] Care Team Providers Care Engineering Manager Name Role Phone Linnette [place] MD Primary Care Provider [phone] Encounter Details Date Type Department Care Team (Late st Contact Info) Description 09/28/2023 Lab Requisition [facility] - DermPath Lab [address] [facility], [place] [id number] Héctor Smith MD [address] [place] [address] Social History Tobacco Use Types Packs/Day Years Used Date Smoking Tobacco: Never Assessed Sex and Gender Information Value Date Recorded Sex Assigned at Not on file Gender Identity Not on file Sexual Orientation Not on file documented as of this encounter Plan of Treatment Not on file documented as of this encounter Procedures Procedure Name Priority Date/Time Associated Diagnosis Comments DERMATOPATHOLOGY Routine 09/27/2023 12:0 0 AM CDT documented in this encounter Results * DERMATOPATHOLOGY (09/27/2023 12:00 AM CDT) Case Report Dermatopathology Report ? Case: [id number] ? Authorizing Provider: ??Héctor Smith MD ?Collected: ? 09/27/2023 12:00 AM ? Ordering Location: ? [facility] - ??Received: ?09/29/2023 06:33 AM ? DermPath Lab ? Pathologist: ? Grier, Johnna H, MD ? Specimens: ?? A) - Skin, right mid forearm ? B) - Skin, inferior left axilla ? C) - Skin, left medial calf posterior aspect ? D) - Skin, left medial calf ? E) - Skin, right mid lateral calf ? 4 3:17 PM [facility] DERMATOPATHOLOGY LABORATORY Final Diagnosis Specimen A. SKIN, right mid forearm: BASAL CELL CARCINOMA, NODULAR TYPE (C44.612) Specimen B. SKIN, inferior left axilla: HYPERPLASTIC (HYPERTROPHIC) ACTINIC KERATOSIS (L57.0) ARISING IN ASSOCIATION WITH A BENIGN VERRUCOUS KERATOSIS, INFLAMED (L82.1) Specimen C. SKIN, left medial calf posterior aspect: ACTINIC KERATOSIS (L57.0) Specimen D. 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 SKIN, right mid lateral calf: SEBORRHEIC KERATOSIS, MACULAR (L82.1) 4 3:17 PM [facility] DERMATOPATHOLOGY LABORATORY Clinical History A: R/O SCC. B: R/O ISK, CHRIS DISEASE. C-D: R/O CHRIS DISEASE. E: R/O CHRIS DISEASE vs ECZEMA. 4 3:17 PM [facility] DERMATOPATHOLOGY LABORATORY Gross Description Specimen A: Received is one formalin filled container labeled with the patient's name and designated right mid forearm. The specimen consists of a shave biopsy measuring 01v66n1 mm. Jar 0. Specimen B: Received is one formalin filled container labeled with the patient's name and designated inferior left axilla. The specimen consists of a shave biopsy measuring 12x8x7 mm. Jar 0. Specimen C: Received is one formalin filled container labeled with the patient's name and designated left medial calf posterior aspect. The specimen consists of a shave biopsy measuring 9x11x1 mm. Jar 0. Specimen D: Received is one formalin filled container labeled with the patient's name and designated left medial calf. The specimen consists of a shave biopsy measuring 7x9x1 mm. Jar 0. Specimen E: Received is one formalin filled container labeled with the patient's name and designated right mid lateral calf. The specimen consists of a shave biopsy measuring 9x7x1 mm. Jar 0. 3:17 PM [facility] DERMATOPATHOLOGY LABORATORY Microscopic Description Specimen A. SKIN, right mid forearm: Within the dermis there are aggregates of basaloid cells with a high nuclear to cytoplasmic ratio and peripheral palisading. Specimen B. SKIN, inferior left axilla: There is hyperkeratosis alternating with parakeratosis. There is epidermal hyperplasia with disorderly maturation of keratinocytes with nuclear pleomorphism confined to the lower half of the epidermis. In other areas, there is hyperkeratosis, papillomatosis, hypergranulosis, and acanthosis. Inflammatory cells are present within the dermis. Specimen C. SKIN, left medial calf posterior aspect: There is focal parakeratosis. The lower half of the epidermis shows disorderly maturation of keratinocytes with nuclear pleomorphism. Specimen D. SKIN, left medial calf: The epidermis shows parakeratosis, full thickness disorderly maturation of keratinocytes, mitoses at different levels, and dyskeratotic cells. Specimen E. SKIN, right mid lateral calf: Sections show a relatively broad, flat proliferation of small keratinocytes. The surface is gently papillated, and there is increased basilar pigmentation. 3:17 PM [facility] DERMATOPATHOLOGY LABORATORY Disclaimer An external and internal positive and negative controls are appropriate for the histochemical, immunohistochemical and immunofluorescence stain(s) in this case (if any), except where stated explicitly. The performance characteristics of the stain(s) cited in this report were developed and its performance characteristic determined by the Dermatopathology Laboratory at [facility], directed by Dr. Rosa [place]. These tests need not be, and therefore are not, approved by the [place] Food and Drug Administration. The tests are used for clinical purposes. Billing Codes Specimen Charges Stain Charges 53614 75719 62753 17765 61796 1 1 1 1 1 4 3:17 PM CDT DERMATOPATHOLOGY LABORATORY Embedded Images 3:17 PM CDT DERMATOPATHOLOGY LABORATORY Pathology/Cytology TISSUE SPECIMEN FROM SKIN / Unknown 09/27/2023 09/29/2023 6:33 AM CDT Miscellaneous samples (specimen) TISSUE SPECIMEN FROM SKIN / Unknown 09/27/2023 09/29/2023 6:33 AM CDT Miscellaneous samples (specimen) TISSUE SPECIMEN FROM SKIN / Unknown 09/27/2023 09/29/2023 6:33 AM CDT Miscellaneous samples (specimen) TISSUE SPECIMEN FROM SKIN / Unknown 09/27/2023 09/29/2023 6:33 AM CDT Miscellaneous samples (specimen) TISSUE SPECIMEN FROM SKIN / Unknown 09/27/2023 09/29/2023 6:33 AM CDT Héctor Smith MD LAB - PATHOLOGY/CYTO LOGY ORDERABLES Performing Organization Address City/State/[facility] Co de Phone Number DERMATOPATHOLOGY LABORATORY [facility] - Department of Dermatology [facility] [address] [place] [address], 3rd Floor [address] [phone] documented in this encounter Visit Diagnoses Not on filedocumented in this encounter Care Teams Engineering Manager Relationship Specialty Start Date End Date Linnette [place] MD [address] [place] [address] PCP - General 07/06/18 documented as of this encounter
--- OUTSIDE RECORDS SUMMARY | 2024-07-28 00:52 | XMS_ITS | Clinical Summary ---
Author Organization [facility] Address [address], [facility] [address] [place] [address] Phone Care Team Providers Care Antisqueak Chalker Name Role Phone Linnette [place] MD Primary Care Provider [phone] Fran Waters DO Unavailable [phone] Allergies Active Allergy Reactions Criticality Noted Date Comments Penicillins Unknown 08/20/2016 Sulfa Antibiotics Unknown 08/20/2016 Medications polyethylene glycol (MIRALAX) Powder Use entire 255g bottle with 64oz of clear liquid as directed for colonoscopy prep. 255 g 0 6 Active ASMANEX 120 METERED DOSES 220 MCG/INH AEROSOL POWDER, BREATH ACTIVATED take 4 Inhalers by inhalation 2 times daily. 3 6 Active SEREVENT DISKUS 50 MCG/DOSE AEROSOL POWDER, BREATH ACTIVATED take 1 Puff by inhalation 2 times daily. 3 7 Active SPIRIVA HANDIHALER 18 MCG Capsule take 1 Cap by inhalation daily. 3 7 Active PROAIR HFA 108 (90 Base) MCG/ACT Aerosol Solution take 2 Puffs by inhalation every 4 hours as needed. 3 6 Active montelukast (SINGULAIR) 10 MG Tablet Take 1 Tab by mouth nightly. 3 7 Active levothyroxine (SYNTHROID) 50 MCG Tablet Take 50 mcg by mouth daily. Active hydroCHLOROthia zide 25 MG Tablet Take 25 mg by mouth daily. Active Immunizations Immunization Administration Dates Next Due Covid-19, Mrna, Lnp-s, Pf, 30 Mcg/0.3 Ml Dose (P fizer) 09/13/2020,08/22/2020 Social History Tobacco Use Types Packs/Day Years Used Date Smoking Tobacco: Former Cigarettes 0.5 15 0 08/20/1958 - 08/20/1973 Smokeless Tobacco: Never Alcohol Use Standard Drinks/Week Comments Yes 14 (1 standard drink = 0.6 oz pu re alcohol) Comments Unknown Sex and Gender Information Value Date Recorded Sex Assigned at Not on file Legal Sex Female 9:10 AM CDT Gender Identity Not on file Sexual Orientation Not on file Plan of Treatment Health Maintenance Due Date Last Done Comments DEXA Bone Density 1942 Hepatitis C Virus (HCV) Screening 1940 Pneumococcal Immunization (50+ years) (1 of 1 - PCV) 1992 Zoster Immunization (2 of 3) 01/26/2015 12/01/2014 Respiratory Syncytial Virus (RSV) Immunization (Adult) (1 - 1-dose 75+ series) 2017 Influenza Immunization (#1) 02/26/202409/2018, 03/26/2018, 03/08/2017, Additional history exists SARS-COV-2 Immunization ( season) 2024 04/08/2021, 09/13/2020, 08/22/2020 DTaP/Tdap/Td Immunization Discontinued 11/03/2020 TdaP Immunization Completed 11/03/2020 Hepatitis B Immunization Aged Out No longer eligible based on patient's age to complete this topic Meningococcal Immunization (ACWY) Aged Out No longer eligible based on patient's age to complete this topic Rotavirus Immunization Aged Out No lo nger eligible based on patient's age to complete this topic Care Teams Antisqueak Chalker Relationship Specialty Start Date End Date Linnette [place] MD [address] [place] [address] PCP - General Family Medicine 08/19/16 Fran Waters DO [address] [place] [address] Gastroenterology 08/19/16
--- OUTSIDE RECORDS SUMMARY | 2024-07-28 00:52 | XMS_ITS | Encounter Summary ---
Author Organization [facility] Address [address] [facility] [place] [address] Care Team Providers Care Wire Repairer Name Role Phone Linnette [place] MD Primary Care Provider [phone] Encounter Details Date Type Department Care Team (Late st Contact Info) Description 07/06/2018 Lab Requisition [facility] DermPath Lab [address] [place] [address] Héctor Smith MD [address] [place] [address] Social History Tobacco Use Types Packs/Day Years Used Date Smoking Tobacco: Never Assessed Sex and Gender Information Value Date Recorded Sex Assigned at Not on file Gender Identity Not on file Sexual Orientation Not on file documented as of this encounter Plan of Treatment Not on file documented as of this encounter Procedures Procedure Name Priority Date/Time Associated Diagnosis Comments DERMATOPATHOLOGY Routine 07/05/2018 12:0 0 AM CULLET CRUSHER AND WASHER documented in this encounter Results * DERMATOPATHOLOGY (07/05/2018 12:00 AM CULLET CRUSHER AND WASHER) Case Report Dermatopathology Report ? Case: [id number] ? Authorizing Provider: ??Héctor Smith MD ?Collected: ? 07/05/2018 12:00 AM ? Pathologist: ? Liza Munson MD ? Received: ?07/06/2018 12:08 PM ? Specimen: ?Skin, left lower leg medially ? 12:27 PM [facility] DERMATOPATHOLOGY LABORATORY Final Diagnosis Specimen A. SKIN, left lower leg medially: HYPERPLASTIC (HYPERTROPHIC) ACTINIC KERATOSIS (L57.0) NOT PRESENT AT SAMPLED MARGIN 12:27 PM [facility] DERMATOPATHOLOGY LABORATORY Clinical History R/O SCC, HAK, Davey's. Check margins. 12:27 PM [facility] DERMATOPATHOLOGY LABORATORY Gross Description Specimen A: Received is one formalin filled container labeled with the patients name and designated left lower leg medially. The specimen consists of a shave removal measuring [id number]. The margin is inked green. Jar 0. 12:27 PM [facility] DERMATOPATHOLOGY LABORATORY Microscopic Description Specimen A. SKIN, left lower leg medially: There is hyperkeratosis alternating with parakeratosis. There is epidermal hyperplasia with disorderly maturation of keratinocytes with nuclear pleomorphism confined to the lower half of the epidermis. This lesion is not present at the sampled margin of the specimen. 12:27 PM [facility] DERMATOPATHOLOGY LABORATORY Disclaimer An external and internal positive and negative controls are appropriate for the histochemical, immunohistochemical and immunofluorescence stain(s) in this case (if any), except where stated explicitly. The performance characteristics of the stain(s) cited in this report were developed and its performance characteristic determined by the Dermatopathology Laboratory at [facility], directed by Dr. Rosa Cerna. These tests need not be, and therefore are not, approved by the [place] Food and Drug Administration. The tests are used for clinical purposes. Billing Codes Specimen Charges Stain Charges 11402 1 12:27 PM [facility] DERMATOPATHOLOGY LABORATORY Embedded Images 12:27 PM [facility] DERMATOPATHOLOGY LABORATORY Pathology/Cytolog y TISSUE SPECIMEN FROM SKIN / Unknown 07/05/2018 07/06/2018 12:08 PM CULLET [employer]HER [employer] WASHER Héctor Smith MD LAB - PATHOLOGY/CYTO LOGY ORDERABLES DERMATOPATHOLOGY LABORATORY [facility] - Department of Dermatology [address] [place] [address], 5th Floor Lab [address] [phone] documented in this encounter Visit Diagnoses Not on filedocumented in this encounter Care Teams Wire Repairer Relationship Specialty Start Date End Date Linnette [place] MD [address] [place] [address] PCP - General 07/06/18 documented as of this encounter
--- OUTSIDE RECORDS SUMMARY | 2024-07-28 00:52 | XMS_ITS | Referral Summary ---
Author Organization [facility] Address [address] [facility] [place] [address] Care Team Providers Care Cellars Supervisor Name Role Phone Linnette [place] MD Primary Care Provider [phone] Source Comments [facility],non-owned Affiliates and Associated Physician Practices is amultiple site organization consisting of ambulatory clinics and hospital sitesin [place], [place], [place] and [place]. This disclosure is being madepursuant to the Care Everywhere program and may not contain all information available regarding this patient. Last updated 18.[facility] Social History Tobacco Use Types Packs/Day Years Used Date Smoking Tobacco: Never Assessed Sex and Gender Information Value Date Recorded Sex Assigned at Not on file Gender Identity Not on file Sexual Orientation Not on file Plan of Treatment Not on file Care Teams Cellars Supervisor Relationship Specialty Start Date End Date Linnette [place] MD [address] [place] [address] PCP - General 07/06/18
--- OUTSIDE RECORDS SUMMARY | 2024-07-28 00:52 | XMS_ITS | Referral Summary ---
Author Organization [facility] [address] Address [address] [place] [address] Care Team Providers Care Extension Division Director Name Role Phone Linnette [place] MD Primary Care Provider [phone] Asha Saleh RN Unavailable Rosibel vailable Encounters Date Type Department Care Team Description 07/10/2024 Telephone [facility] [address] [place] [phone] Jenna Varghese pa for fluticasone (Per CMM and [employer] caremark auth is approved for fluticasone and good until 06/26/25 pa patterson BNNABPTE) 06/25/2024 Telephone [facility] 8th [place] [address] [place] [phone] Asha Saleh, LOUIE 06/25/2024 Orders Only [facility] [address] [facility] 8th [place] [address] [place] [phone] Magy Guerrier MD 06/18/2024 Documentation [facility] [address] [facility] 8th [place] [address] [place] [phone] Wicho Han Jr., MD 06/18/2024 Telephone [facility] [address] [facility] 8th [place] [address] [place] [phone] Asha Saleh, LOUIE 06/08/2024 Telephone [facility] [address] [facility] 8th [place] [address] [place] [phone] Asha Saleh RN 06/06/2024 Telephone [facility] [address] [facility] 8th [place] [address] [place] [address] Asha Saleh, LOUIE from Last 3 Months Allergies Active Allergy Reactions Criticality Noted Date Comments Penicillins Itching,Rash,Unknown Medium 02/20/2010 Other reaction(s): Unknown Sulfa (Sulfonamide Antibiotics) Rash,Unknown Medium 02/20/2010 Other reaction(s): Unknown Medications multivitamin tablet Take 1 tablet by mouth daily Active levothyroxine (SYNTHROID, LEVOTHROID) 50 mcg tablet Take 1 tablet (50 mcg total) by mouth daily Active cholecalciferol (VITAMIN D-3) 25 mcg (1,000 unit) tablet Take 1 tablet (1,000 Units total) by mouth 9 Active neomycin-polymy sophie B-dexAMETHasone (POLYDEX) 3.5 mg/g-10,000 unit/g-0.1 % ointment neomycin 3.5 mg/g-polymyxi n B 10,000 unit/g-dexame th 0.1 % eye oint ANASTASIIA CECE IN THE MORNING AND HS Active omeprazole (PriLOSEC) 20 mg capsule Take by mouth daily 1 Active calcium carbonate (CALCIUM 500 ORAL) Take by mouth Active traZODone (DESYREL) 50 mg tablet Take 1 tablet (50 mg total) by mouth nightly at bedtime 3 Active cetirizine (ZyrTEC) 10 mg tablet TAKE 1 TABLET BY MOUTH EVERY DAY NEEDED FOR ALLERGY SYMPTOMS 3 Active denosumab (Prolia) 60 mg/mL syringe Inject under the skin once 2 times a year Active tiotropium (Spiriva with HandiHaler) 18 mcg per inhalation capsule Place 1 puff (1 capsule total) into inhaler and inhale daily 90 capsule 3 4 Active cod liver oiL oil Take by mouth Active melatonin 10 mg tablet Active montelukast (SINGULAIR) 10 mg tabletIndicatio ns:Asthma, unspecified asthma severity, unspecified whether complicated, unspecified whether persistent TAKE 1 TABLET(10 MG) BY MOUTH EVERY NIGHT 90 tablet 3 4 Active Serevent Diskus 50 mcg/dose diskus inhaler INHALE 1 PUFF BY MOUTH TWICE DAILY 180 each 3 4 Active fluticasone propionate (FLOVENT HFA) 220 mcg/actuation inhaler Inhale 4 puffs 2 (two) times a day Rinse mouth with water after use. Do not swallow. 6 each 3 4 Active albuterol HFA (PROVENTIL HFA,VENTOLIN HFA,PROAIR HFA) 90 mcg/actuation inhaler Inhale 2 puffs every 4 (four) hours as needed for wheezing or shortness of breath 25.5 g 3 5 Active albuterol HFA (PROVENTIL HFA,VENTOLIN HFA,PROAIR HFA) 90 mcg/actuation inhaler INHALE 2 PUFFS BY MOUTH EVERY 4 HOURS NEEDED FOR WHEEZING 25.5 g 3 3 07/17/19 25 Discontinu ed(Reorder ) predniSONE (DELTASONE) 10 mg tablet Take 4 tabs (40mg) daily for 3 days, then 3 tabs (30mg) daily for 3 days, 2 tabs (20mg) daily for 3 days, 1 tab (10 mg) daily for 3 days. 30 tablet 4 07/18/19 25 levoFLOXacin (LEVAQUIN) 750 mg tablet Take 1 tablet (750 mg total) by mouth daily for 3 days 3 tablet 4 06/28/19 25 Active Problems Problem Noted Date Diagnosed Date Bronchiectasis with acute lower respiratory infe ction 03/31/2020 Oral thrush 01/11/2019 Recurrent pneumonia 01/11/2019 Hospital discharge follow-up 09/26/2018 Psychophysiologic insomnia 09/26/2018 Chronic obstructive pulmonary disease Asthma Lung nodule Resolved Problems Problem Noted Date Diagnosed Date Resolved Date ILD (interstitial lung disease) (CMS/HCC) 04/24/2021 03/27/2024 Immunizations Name Administration Dates Next Due Influenza, Unspecified 03/30/2019 Pneumococcal Conjugate PCV 13 03/26/2020 Pneumococcal Polysaccharide PPV23 01/08/2015 Social History Tobacco Use Types Packs/Day Years Used Date Smoking Tobacco: Former Smokeless Tobacco: Never Tobacco Cessation:Counseling Given: Not Answered PHQ-2 Answer Date Recorded PHQ-2 Total Score (If total score is 3 or more points, staff should administer the PHQ-9) 0 07/10/2021 Personal Safety Answer Date Recorded Getting School Help Needed Not on file 08/12 Comments Unknown Sex and Gender Information Value Date Recorded Sex Assigned at Not on file Legal Sex Female 7:48 AM VOICE OVER ARTIST Gender Identity Not on file Sexual Orientation Not on file Last Filed Vital Signs Vital Sign Reading Time Taken Comments Blood Pressure 135/79 03/26/2024 3:27 PM CDT Pulse 94 03/26/2024 3:27 PM CDT Temperature 36.5 ??C (97.7 ??F) 03/26/2024 3:27 PM CD T Respiratory Rate 18 03/26/2024 3:27 PM CDT Oxygen Saturation 94% 03/26/2024 3:27 PM CDT Inhaled Oxygen Concentration - - Weight 61.7 kg (136 lb) 03/26/2024 3:27 PM CDT Height 157.5 cm (5' 2 ) 03/26/2024 3:27 PM CDT Body Mass Index 24.87 03/26/2024 3:27 PM CDT Plan of Treatment Not on file Insurance MED[employer]ARE [employer] MEDICARE [facility] [employer] MEDICARE SOLUTIONS Member Subscriber Plan / Payer (Ef fective 2017-Present) Name:KRISTIANKRISTIN Ana Relation to Subscriber:Self Name:Kristin Townsend Ana Payer ID:[id number] ([facility]) Type:[facility] MEDICARE Address: [address] [address] [place] [address] [facility] MEDICARE Care Teams Extension Division Director Relationship Specialty Start Date End Date Linnette [place] MD PCP - General 01/19/17 Asha Saleh, RN Registered Nurse Pulmonary Disease 04/26/22
--- OUTSIDE RECORDS SUMMARY | 2024-07-28 00:52 | XMS_ITS | Clinical Summary ---
Author Organization [facility] [address] Address [address] [place] [address] Care Team Providers Care Unix Engineer Name Role Phone Linnette Valencia MD Primary Care Provider [phone] Asha Saleh RN Unavailable Rosibel vailable Allergies Active Allergy Reactions Criticality Noted Date [...] Date Resolved Date ILD (interstitial lung disease) (CMS/[facility]) 04/24/2021 03/27/2024 Encounters Date Type Department Care Team Description 07/10/[address] [facility] [address] [place] [address] Jenna Varghese pa for fluticasone (Per CMM and [employer] caremark auth is approved for fluticasone and good until 06/26/25 pa patterson BNNABPTE) 06/25/[address] [facility] Advanced Medicine 8th [place] [address] [place] [address] Asha Saleh, LOUIE 06/25/[address] [facility] [address] [place] [address] [place] [address] [place] [address] Magy Guerrier MD 06/18/[address] [facility] [address] [place] [address] [facility] 8th [place] [address] [place] [address] Wicho Han Jr., MD 06/18/[address] [facility] [address] [place] [address] [facility] 8th [place] [address] [place] [address] Asha Saleh, RN 06/08/[address] [facility] Advanced Medicine [facility] [place] [address] [place] [address] Asha Saleh, LOUIE 06/06/[address] [facility] Medicine [facility] [place] [address] [place] [address] Asha Saleh, RN from Last 3 Months Immunizations Name Administration Dates Next Due Influenza, Unspecified 03/30/2019 Pneumococcal Conjugate PCV 13 03/26/2020 Pneumococcal Polysaccharide PPV23 01/08/2015 Family History Medical History Relation Name Comments Asthma Father Family history of asthma - 11/02/13-EW (Added by TW Conv) Heart disease Father Asthma Paternal Grandmother Family history of asthma - 11/02/13-EW (Added by TW Conv) Relation Name Status Comments Father Paternal Grandmother Social History Tobacco Use Types Packs/Day Years [...] on file Legal Sex Female 7:48 AM [employer] Gender Identity Not on file Sexual Orientation Not on file Obstetrics History Last Filed Vital Signs Vital Sign Reading [...] 03/26/2024 3:27 PM CDT Plan of Treatment Health Maintenance Due Date Last Done Comments Fall Risk Assessment 1942 Osteoporosis Screening-Bone Density Scan 1942 DTaP/Tdap/Td Vaccine (1 - Tdap) 1953 Hepatitis B Screening 1960 Well Visit 65+ 2007 Zoster Vaccine (2 of 3) 01/26/2015 12/01/2014 Depression Screening 07/10/2022 07/10/2021 Covid-19 Vaccine (3 - 2023-2 5 season) 2024 09/13/2020, 08/22/2020 Influenza Vaccine (#1) 2024 9, 03/27/2018, 03/26/2018, Additional history exists Pneumococcal vaccine 65+ Completed 03/26/2020, 12/25 Insurance MEDICARE [facility] MEDICARE Address: [address] [address] [place] [address] [facility] MEDICARE [facility] [employer] [facility] HMO/PPO Address: [address] [place] [address] MEDICARE [employer] [facility] MEDICARE Care Teams Unix Engineer Relationship Specialty Start Date End Date Linnette Valencia MD PCP - General 01/19/17 Asha Saleh, LOUIE Registered Nurse Pulmonary Disease 04/26/22
--- OUTSIDE RECORDS SUMMARY | 2024-07-28 00:52 | XMS_ITS | Continuity of Care Document ---
Author Organization [facility] Address [address] [place] [address] [address] [place] [address] Phone Care Team Providers Care Precision Lathe Operator Name Role Phone Dupont OD, Fran Unavailable Unavailable Procedures Procedure Date Office/outpatient Visit, Est Eye Exam, New Patient Advance Directives Directive Yes / No Effective Date File Name No Information Encounters Encounter Description Practice Location Reason(s) For Visit Diagnoses Date Provider Providers Copied on Encounter Office/outpat ient Visit, Est [facility], [address] [place] [address] [address], [place], [place], [id number], tel:[phone] [facility] No Information Jan-2 2-200 8 Dupont OD Fran. [address] , [address], [place], [place], [facility], . tel:[phone] [facility], [address] [place] [address] [address], [place], [place], [id number], tel:[phone] [facility] No Information 5-200 8 Dupont OD Fran. [address] , [address], [place], [facility], [place]. tel:[phone] Family History Family Member Type Diagnosis Age At Onset No Information Payers Payer name Insurance type Covered democrat ID Authoriza tion(s) [place] [id number] Social History Type Description Quantity Date Captured Comments Sex Female Smoking Status No Information Chief Complaint And Reason For Visit No Information Reason For Referral Reason For Referral No Information History Of Present Illness Encounter Date Complaint History Of Prese nt Illness No Information Functional Status Date Functional Assessmen t No Information Instructions Date Instruction Additional Infor mation No Information Assessments Type Assessment Date No Information Patient Care Teams Name Effective Dates (start - stop) Status Members No Information
--- OUTSIDE RECORDS SUMMARY | 2024-07-28 00:52 | XMS_ITS | Encounter Summary ---
Author Organization [facility] Address [address] [place] [address] Care Team Providers Care Utility Worker Roller Shop Name Role Phone Linnette Valencia MD Primary Care Provider [phone] Encounter Details Date Type Department Care Team (Late st Contact Info) Description 11/21/2020 Lab Requisition [facility] Derm[facility] [address] [place] [id number] Héctor Smith MD [address] [place] [address] Social History Tobacco Use Types [...] Priority Date/Time Associated Diagnosis Comments DERMATOPATHOLOGY Routine 11/18/2020 3:33 AM CDT documented in this encounter Results * DERMATOPATHOLOGY (11/18/2020 3:33 AM CDT) Case Report Dermatopathology Report ? Case: [id number] ? Authorizing Provider: ??Héctor Smith MD ?Collected: ? 11/18/2020 03:33 AM ? Ordering Location: ? [facility] ?Received: ?11/21/2020 05:55 AM ? Pathologist: ? Silas Cerna MD ? Specimens: ?? A) - Skin, right angle jaw ? B) - Skin, left ant neck ? 1 1:13 PM CDT DERMATOPATHOLOGY LABORATORY Final Diagnosis Specimen A. SKIN, right angle jaw: BASAL CELL CARCINOMA, INFILTRATIVE PATTERN (C44.319) INTRADERMAL MELANOCYTIC NEVUS (D22.39) (see microscopic description) Specimen B. 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 1 1:13 PM CDT DERMATOPATHOLOGY LABORATORY Gross Description Specimen A: Received is one formalin filled container labeled with the patient's name and designated right angle jaw. The specimen consists of a shave biopsy measuring 9j7d3kg. Jar 0. Specimen B: Received is one formalin filled container labeled with the patient's name and designated left ant neck. The specimen consists of a shave biopsy measuring 8p1n7go. Jar 0. 1 1:13 PM T DERMATOPATHOLOGY LABORATORY Microscopic Description Specimen A. SKIN, right angle jaw: Within the dermis there are nodular aggregates of basaloid cells associated with fibromyxoid stroma and epithelial-stromal clefts. At the advancing margin of the neoplasm, there are smaller angulated nests that infiltrate the dermis. In addition, there are nests of cytologically bland melanocytes within the dermis that mature with depth. Specimen B. SKIN, left ant neck: The epidermis shows parakeratosis, full thickness disorderly maturation of keratinocytes, mitoses at different levels, and dyskeratotic cells. 1 1:13 PM CDT DERMATOPATHOLOGY LABORATORY Disclaimer An external and internal positive and negative controls are appropriate for the histochemical, immunohistochemical and immunofluorescence stain(s) in this case (if any), except where stated explicitly. The performance characteristics of the stain(s) cited in this report were developed and its performance characteristic determined by the Dermatopathology Laboratory at [facility], directed by Dr. Rosa Cerna. These tests need not be, and therefore are not, approved by the [place] Food and Drug Administration. The tests are used for clinical purposes. Billing Codes Specimen Charges Stain Charges 04594 76852 1 1 1 1:13 PM CDT DERMATOPATHOLOGY LABORATORY Embedded Images 1 1:13 PM CDT DERMATOPATHOLOGY LABORATORY Pathology/Cytology TISSUE SPECIMEN FROM SKIN / Unknown 11/18/2020 3:33 AM CDT 11/21/2020 5:55 AM CDT Miscellaneous samples (specimen) TISSUE SPECIMEN FROM SKIN / Unknown 11/18/2020 3:33 AM CDT 11/21/2020 5:55 AM CDT Héctor Smith MD LAB - PATHOLOGY/CYTO LOGY ORDERABLES DERMATOPATHOLOGY LABORATORY [facility] - Department of Dermatology [facility] Specialized Medicine [address] [place] [address], [address] [phone] documented in this encounter Visit Diagnoses Not on filedocumented in this encounter Care Teams Utility Worker Roller Shop Relationship Specialty Start Date End Date Linnette Valencia MD [address] [place] [address] PCP - General 07/06/18 documented as of this encounter
--- OUTSIDE RECORDS SUMMARY | 2024-07-28 00:52 | XMS_ITS | Encounter Summary ---
Author Organization [facility] Health Address [address] [facility] [place] [address] Care Team Providers Care Ldr Nurse Name Role Phone Linnette Valencia MD Primary Care Provider [phone] Encounter Details Date Type Department Care Team (Late st Contact Info) Description 12/19/2023 Lab Requisition [facility] - DermPath Lab [address] [facility], [place] [id number] Isidra Cedeño MD [address] [place] [address] Basal cell carcinoma of skin of right upper limb, including shoulder Social History Tobacco Use Types Packs/Day Years Used Date Smoking Tobacco: Never Assessed Sex and Gender Information Value Date Recorded Sex Assigned at Not on file Gender Identity Not on file Sexual Orientation Not on file documented as of this encounter Plan of Treatment Not on file documented as of this encounter Procedures Procedure Name Priority Date/Time Associated Diagnosis Comments DERMATOPATHOLOGY Routine 12/16/2023 12:0 0 AM CDT Basal cell carcinoma of skin of right upper limb, including shoulder documented in this encounter Results * DERMATOPATHOLOGY (12/16/2023 12:00 AM CDT) Case Report Dermatopathology Report ? Case: [id number] ? Authorizing Provider: ??Isidra Cedeño MD ?Collected: ? 12/16/2023 12:00 AM ? Ordering Location: ? [facility] - ??Received: ?12/19/2023 12:32 PM ? DermPath Lab ? Pathologist: ? Silas Cerna MD ? Specimen: ?Skin, right mid forearm ? 4 12:12 PM CDT DERMATOPATHOLOGY LABORATORY Final Diagnosis Specimen A. SKIN, right mid forearm: DERMAL SCAR RESIDUAL BASAL CELL CARCINOMA NOT IDENTIFIED (L90.5) ACTINIC KERATOSIS, INCIDENTAL (L57.0) 4 12:12 PM CDT DERMATOPATHOLOGY LABORATORY Clinical History BCC. Check margins. 4 12:12 PM CDT DERMATOPATHOLOGY LABORATORY Gross Description Specimen A: Received is one formalin filled container labeled with the patient's name and designated right mid forearm. The specimen consists of a non-oriented ellipse of skin measuring 37k70j7 mm. The epidermal surface is unremarkable. The margin is inked green. The 12 o'clock and 6 o'clock tips are submitted in cassette 1. The remainder of the ellipse is serially sectioned and submitted in cassette 2-3. [place] 0. 4 12:12 PM CDT DERMATOPATHOLOGY LABORATORY Microscopic Description Specimen A. SKIN, right mid forearm: There are fibroblasts and collagen bundles oriented parallel to the skin surface. There are elongated blood vessels, some of which are oriented perpendicular to the skin surface. No basal cell carcinoma is identified. In block 2, there is focal parakeratosis. The lower half of the epidermis shows disorderly maturation of keratinocytes with nuclear pleomorphism. 4 12:12 PM CDT DERMATOPATHOLOGY LABORATORY Disclaimer An external and internal positive and negative controls are appropriate for the histochemical, immunohistochemical and immunofluorescence stain(s) in this case (if any), except where stated explicitly. The performance characteristics of the stain(s) cited in this report were developed and its performance characteristic determined by the Dermatopathology Laboratory at [facility], directed by Dr. Rosa Cerna. These tests need not be, and therefore are not, approved by the [place] Food and Drug Administration. The tests are used for clinical purposes. Billing Codes Specimen Charges Stain Charges 11552 1 4 12:12 PM CDT DERMATOPATHOLOGY LABORATORY Embedded Images 4 12:12 PM CDT DERMATOPATHOLOGY LABORATORY Pathology/Cytolog y TISSUE SPECIMEN FROM SKIN / Unknown 12/16/2023 12/19/2023 12:32 PM CDT Isidra Cedeño MD LAB - PATHOLOGY/CYTO LOGY ORDERABLES DERMATOPATHOLOGY LABORATORY [facility] - Department of Dermatology [address], [address] [phone] documented in this encounter Visit Diagnoses Diagnosis Basal cell carcinoma of skin of right upper limb, including shoulder Basal cell carcinoma of skin of upper limb, including shoulder documented in this encounter Care Teams Ldr Nurse Relationship Specialty Start Date End Date Linnette Valencia MD [address] [place] [address] PCP - General 07/06/18 documented as of this encounter
--- OUTSIDE RECORDS SUMMARY | 2024-07-28 00:52 | XMS_ITS | Patient Health Summary ---
Author Organization [facility] Address [address] [facility] [place] [address] Care Team Providers Care Rn Sane Name Role Phone Linnette Valencia MD Primary Care Provider [phone] [facility],non-owned Affiliates and Associated Physician Practices is amultiple site organization consisting of ambulatory clinics and hospital sitesin [place], [place], [place] and [place]. This disclosure is being madepursuant to the Care Everywhere program and may not contain all information available regarding this patient. Last updated 18.[facility] Social History Tobacco Use Types Packs/Day Years Used Date Smoking Tobacco: Never Assessed Sex and Gender Information Value Date Recorded Sex Assigned at Not on file Gender Identity Not on file Sexual Orientation Not on file Procedures * DERMATOPATHOLOGY(Performed 12/16/2023) Performed for Basal cell carcinoma of skin of right upper limb, including shoulder * DERMATOPATHOLOGY(Performed 09/27/2023) * DERMATOPATHOLOGY(Performed 11/18/2020) * DERMATOPATHOLOGY(Performed 01/23/2020) * DERMATOPATHOLOGY(Performed 07/05/2018) * DERMATOPATHOLOGY(Performed 07/12/2017) * DERMATOPATHOLOGY(Performed 07/01/2015) * DERMATOPATHOLOGY(Performed 12/07/2011) Results * DERMATOPATHOLOGY (12/16/2023 12:00 AM CDT) Only the most recent of8 resultswithin the time period is included. Case Report Dermatopathology Report ? Case: [id number] ? Authorizing Provider: ??Isidra Cedeño MD ?Collected: [...] of a non-oriented ellipse of skin measuring 90m96o1 mm. The epidermal surface is unremarkable. The margin is inked green. The 12 o'clock and 6 o'clock tips are submitted in cassette 1. The remainder of the ellipse is serially sectioned and submitted in cassette 2-3. Jar 0. 4 12:12 PM CDT DERMATOPATHOLOGY LABORATORY [...] characteristic determined by the Dermatopathology Laboratory at [facility], directed by Dr. Rosa Cerna. These tests need not be, and therefore are not, approved by the [place] Food and Drug Administration. The tests are used for clinical purposes. Billing Codes Specimen Charges Stain Charges 30508 1 4 12:12 PM CDT DERMATOPATHOLOGY LABORATORY Embedded Images 4 12:12 PM CDT DERMATOPATHOLOGY LABORATORY Pathology/Cytolog y TISSUE SPECIMEN FROM SKIN / Unknown 12/16/2023 12/19/2023 12:32 PM CDT Isidra Cedeño MD LAB - PATHOLOGY/CYTO LOGY ORDERABLES DERMATOPATHOLOGY LABORATORY [facility] - Department of Dermatology [facility] [address] [place] [address], [address] [phone] Care Teams Rn Sane Relationship Specialty Start Date End Date Linnette Valencia MD [address] [place] [address] PCP - General 07/06/18
[2024-07-28] MEDS: IPRATROPIUM 0.5 MG/ALBUTEROL SULFATE 2.5 MG AMPUL.NEB 3 ML INHALATION ×2 (01:06→08:30)
[2024-07-28 01:39] LABS: Basophils Absolute Auto 0.1 K/mm3 (0.0-0.1); Basophils Percent Auto 0.5 % (0.2-1.2); Eosinophils Absolute Auto 0.1 K/mm3 (0-0.3); Eosinophils Percent Auto 1.2 % (0-4.4); Hematocrit 42.9 % (37.0-47.0); Hemoglobin 14.5 g/dL (12.0-15.0); Immature Granulocyte Absolute 0.07 K/mm3 (0.00-0.031); Immature Granulocyte Percent A 0.6 % (0-0.5); Lymphocytes Absolute Auto 1.39 K/mm3 (0.9-3.2); Lymphocytes Percent Auto 11.9 % (18.3-44.2); Mean Corpuscular HGB Conc 33.8 g/dl (32-36); Mean Corpuscular Hemoglobin 32.4 pg (26-34); Mean Corpuscular Volume 95.8 fl (80-100); Mean Platelet Volume 8.8 fl (7.4-10.4); Monocytes Absolute Auto 0.9 K/mm3 (0.1-0.6); Monocytes Percent Auto 7.7 % (2.6-8.5); Neutrophils Absolute Auto 9.1 K/mm3 (1.3-6.7); Neutrophils Percent Auto 78.1 % (45.5-73.1); Platelet Count Result 266 k/mm3 (150-375); Red Blood Count 4.48 M/mm3 (4.2-5.4); Red Cell Distribution Width 14.7 % (11.5-14.5); White Blood Count 11.7 K/mm3 (4.5-10.0)
[2024-07-28] MEDS: methylPREDNISolone SOD SUCC 125 MG VIAL IV PUSH (01:43)
[2024-07-28 01:44] LABS: Alveolar/Arterial O2 Gradient 90.6 mmHg; Base Excess ABG -0.4 mEq/l (+/-2.0); Fractional Inspired Oxygen 28 %; HCO3 ABG 22.7 mEq/l (22.0-26.0); Oxygen Content ABG 19.6 %vol (16.0-22.0); Oxyhemoglobin 92.9 % THb (90.0-100.0); PCO2 ABG 32.9 mmHg (35.0-45.0); PO2 ABG 70.2 mmHg (80.0-100.0); PO2 FiO2 Ratio Arterial Blood 2.51 %; pH ABG 7.456 (7.350-7.450)
[2024-07-28 01:45] LABS: Device NASAL CANNULA; Modified Allen's Test Pass; Site Drawn RIGHT RADIAL
[2024-07-28 01:50] LABS: INR 0.9; Prothrombin Time 12.6 Seconds (11.1-14.7)
[2024-07-28 01:51] LABS: Partial Thromboplastin Time 26.9 Seconds (22.3-36.8)
[2024-07-28 01:57] LABS: D Dimer 0.64 ug/mL (<0.48)
[2024-07-28 02:03] LABS: NT Pro B Type Natriuretic Pept 2150 pg/mL (19.9-100); Troponin I < 0.012 ng/mL (0.000-0.034)
[2024-07-28 02:14] LABS: Alanine Aminotransferase 12 U/L (6-35); Alkaline Phosphatase 101 U/L (38-126); Anion Gap 8 mmol/L (4-12); Aspartate Amino Transferase 33 U/L (14-36); Bilirubin,Total 0.9 mg/dL (0.2-1.3); Blood Urea Nitrogen 10 mg/dL (7-17); Calcium 8.8 mg/dL (8.4-10.2); Carbon Dioxide 28 mmol/L (22-30); Chloride 91 mmol/L (98-107); Estimated CRCL calculation 69 ml/min; Estimated Glomerular Filt Rate > 60; Glucose 117 mg/dL (65-110); Influenza A QL RT-PCR Positive (Negative); Influenza B QL RT-PCR Negative (Negative); Magnesium 1.6 mg/dL (1.6-2.3); Potassium 4.6 mmol/L (3.4-5.0); RSV RNA, RT-PCR Negative (Negative); SARS-CoV-2 RNA PCR Negative (Negative); Sodium 127 mmol/L (137-145)
--- NOTE | 2024-07-28 03:15 | PC.NURSE ---
EDP denied blood cultures. antibiotics started
[2024-07-28] MEDS: DOXYCYCLINE 100 MG/NS 100 ML 100 MG/100 ML BAG IVPB ×2 (04:04→17:05)
[2024-07-28] MEDS: methylPREDNISolone SOD SUCC 125 MG VIAL 60 MG IV PUSH (08:08)
[2024-07-28] MEDS: LEVOTHYROXINE SODIUM 50 MCG TABLET PO (09:04)
[2024-07-28] MEDS: MULTIVITAMINS THERAPEUTIC TAB (*BKC) 1 TABLET PO (09:04)
[2024-07-28] MEDS: PANTOPRAZOLE 40 MG TABLET PO (09:04)
[2024-07-28] MEDS: SALMETEROL XINAFOATE 50 MCG DISKUS 1 PUFF INHALATION ×2 (09:34→19:58)
[2024-07-28] MEDS: UMECLIDINIUM BROMIDE 62.5 MCG ELLIPTA 1 PUFF INHALATION (09:35)
[2024-07-28] MEDS: FLUTICASONE PROP 44 MCG (*SP) 10.6 GM 4 PUFF INHALATION ×2 (09:36→19:59)
[2024-07-28] MEDS: CALCIUM CARBONATE (OSCAL) 500 MG TABLET 1000 MG PO ×2 (10:01→17:07)
[2024-07-28] MEDS: CHOLECALCIFEROL 1,000 UNITS TABLET 1000 UNITS PO (10:01)
--- NOTE | 2024-07-28 11:13 | P.HP_ITS ---
H&P: HPI History of Present Illness Date/Time: 07/28/24 11:13 Chief Complaint: Worsening SOB and cough Narrative: 84 yo female with PMH of Cervical cancer, hypothyroidism, prediabetes, Severe persistent asthma and Vit D deficiency who presented to the ER with worsening SOB and cough. Patient stated that she has chronic SOB and wheezing from persistent asthma however she stated she started having worsening SOB and cough yesterday. Noted yellowish sputum. Denies any chest pain, vomiting, abd pain or diarrhea. No falls or loss of consciousness. ER eval notable MT 104, RR 20, BP 142/80 saturating 94% on 2 liters. CXR airspace opacities in the lower lung zones, consistent with atelectasis versus scarring, cardiomegaly labs WBA 11.7, abg 7.456/32.9/70.2, Na 127. Review of Systems Review of Systems: All other systems were reviewed adn negative except as noted in the HPI above [facility] Past Medical History Medical History Cervical cancer (1975) Gastroesophageal reflux disease Hypothyroidism Asthma History of methicillin resistant Staphylococcus aureus infection Osteoporosis Prediabetes Montoya's esophagus Severe persistent asthma without complication Vitamin D deficiency Surgical History Surgical History History of tonsillectomy History of cataract extraction with lens replacement History of hysterectomy History of appendectomy History of colonoscopy with polypectomy Family History Family History Other Family history non-contributory Social History Social History Social History: Surrogate medical decision maker: Hernán Diallo, son. Code status: Full code. Smoking status: Former smoker Tobacco type: cigarettes Second hand tobacco smoke exposure: No Alcohol intake: current Drinks per week: 2 Alcohol use details: WINE Substance use: current Substance use type: marijuana Other substance usage details: OCC. Current Housing: Decline to Answer Concerned About Future Housing: Decline to Answer Difficulty Paying Gas/Electric Bills: Decline to Answer Difficulty Paying for Meds: Decline to Answer Currently Unemployed: Decline to Answer Education: Decline to Answer Difficulty w/ Childcare or Family Care: Decline to Answer Living arrangements: alone Additional living arrangements comments: Lives alone in [place]. 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 Gender identity (if verbalized by the patient): Female Spiritual care concerns: No Agree to blood products: Yes Meds Home Medications and Allergies Home Medications ?Medication ?Instructions ?Recorded ?Confirmed ?Type montelukast 10 mg tablet 10 mg PO DAILY 09/21/19 07/28/24 History (Singulair) salmeterol 50 mcg/dose blister 1 inhalation inhalation Q12H 09/21/19 07/28/24 History powder for inhalation (Serevent Diskus) fluticasone propionate 44 4 puff inhalation BID 03/17/20 07/28/24 History mcg/actuation HFA aerosol inhaler (Flovent HFA) albuterol sulfate 90 mcg/actuation 2 inh inhalation Q4H PRN shortness 01/08/21 07/28/24 History aerosol inhaler (ProAir HFA) of breath or wheezing calcium 1,000 mg BYMOUTH DAILY 10/08/22 07/28/24 History tiotropium bromide 18 mcg capsule 1 cap inhalation DAILY 10/16/22 07/28/24 History with inhalation device (Spiriva with HandiHaler) miscellaneous medical supply #1 ea 10/21/22 07/23/24 Rx cholecalciferol (vitamin D3) 25 25 mcg PO DAILY 01/03/23 07/28/24 History mcg (1,000 unit) capsule melatonin 10 mg capsule 10 mg PO QHS 06/14/23 07/28/24 History multivitamin (Daily Multi-Vitamin 1 tablet PO DAILY 06/14/23 07/28/24 History tablet) psyllium 1 tbsp PO DAILY 06/14/23 07/28/24 History vit A palm and D3 in cod liver oil cap PO 06/14/23 07/23/24 History 1,250 unit-130 unit-530 mg capsule (Cod Liver Oil plus Vits A and D3) denosumab 60 mg/mL subcutaneous 60 mg subcut [id number] #1 mL 12/12/23 07/28/24 Rx syringe (Prolia) nystatin 100,000 unit/mL oral 500,000 unit (5 mL) PO QID #200 mL 12/12/23 07/28/24 Rx suspension levothyroxine 50 mcg tablet 50 mcg PO DAILY #90 tabs 04/17/24 07/28/24 Rx (Euthyrox) omeprazole 20 mg capsule,delayed 20 mg PO DAILY #90 caps 07/23/24 07/28/24 Rx release Allergies Allergy/AdvReac Type Severity Reaction Status Date / Time Penicillins Allergy Unknown Rash Verified 07/23/24 13:55 Sulfa (Sulfonamide Allergy Unknown Unknown Verified 07/23/24 13:55 Antibiotics) Vital Signs Vital Signs - 24 hr 07/28/24 00:38 07/28/24 00:45 07/28/24 00:48 Pulse Rate 116 H 113 H Respiratory Rate 20 18 Blood Pressure 166/87 H 166/87 H Pulse Oximetry 95 95 95 Oxygen Delivery Nasal Cannula Nasal Cannula Oxygen Flow Rate 2 2 Fraction of Inspired Oxygen 07/28/24 00:56 07/28/24 00:58 07/28/24 01:00 Pulse Rate 117 H 113 H 118 H Respiratory Rate 22 H 21 H Blood Pressure Pulse Oximetry 97 96 Oxygen Delivery Oxygen Flow Rate Fraction of Inspired Oxygen 07/28/24 01:01 07/28/24 01:02 07/28/24 01:48 Pulse Rate 115 H 114 H 112 H Respiratory Rate 20 18 18 Blood Pressure 146/91 H Pulse Oximetry 97 96 Oxygen Delivery Oxygen Flow Rate Fraction of Inspired Oxygen 07/28/24 02:23 07/28/24 02:30 07/28/24 02:45 Pulse Rate 118 H 114 H 116 H Respiratory Rate 24 H 29 H 23 H Blood Pressure Pulse Oximetry 96 95 94 Oxygen Delivery Oxygen Flow Rate Fraction of Inspired Oxygen 07/28/24 03:00 07/28/24 03:15 07/28/24 03:30 Pulse Rate 115 H 115 H 111 H Respiratory Rate 25 H 21 H 22 H Blood Pressure Pulse Oximetry 95 94 95 Oxygen Delivery Oxygen Flow Rate Fraction of Inspired Oxygen 07/28/24 03:45 07/28/24 04:00 07/28/24 04:15 Pulse Rate 109 H 115 H Respiratory Rate 22 H 24 H Blood Pressure Pulse Oximetry 95 95 95 Oxygen Delivery Oxygen Flow Rate Fraction of Inspired Oxygen 07/28/24 04:20 07/28/24 04:30 07/28/24 04:45 Pulse Rate 95 104 H 101 H Respiratory Rate 21 H 21 H 25 H Blood Pressure 121/95 H Pulse Oximetry 94 94 93 Oxygen Delivery Oxygen Flow Rate Fraction of Inspired Oxygen 07/28/24 06:20 07/28/24 07:32 07/28/24 07:36 Pulse Rate 100 98 Respiratory Rate 20 20 Blood Pressure 135/66 Pulse Oximetry 94 95 95 Oxygen Delivery Nasal Cannula Oxygen Flow Rate 3 Fraction of Inspired Oxygen 07/28/24 08:30 07/28/24 08:30 07/28/24 08:36 Pulse Rate 94 95 Respiratory Rate 14 18 Blood Pressure Pulse Oximetry 94 Oxygen Delivery Nasal Cannula Oxygen Flow Rate 2 Fraction of Inspired Oxygen 28 07/28/24 09:01 07/28/24 09:34 Pulse Rate 105 H 104 H Respiratory Rate 20 18 Blood Pressure 142/80 H Pulse Oximetry 95 Oxygen Delivery Oxygen Flow Rate Fraction of Inspired Oxygen Exam Narrative: General: comfortable at bedside HEENT: Normocephalic, atraumatic. PERRL, EOMI. Sclera anicteric. Oral mucosa moist. Neck: Supple. No JVD or lymphadenopathy. Respiratory: bilateral wheezing Cardiovascular: Tachycardic with S1-S2. Gastrointestinal: Abdomen is soft, nontender, and nondistended with positive bowel sounds. Skin: Warm and dry. No rash or lesions on limited exam. Extremities: No cyanosis, clubbing, or edema. Radial and pedal pulses intact. Neurological: Alert. Cranial nerves 2-12 are grossly intact. No gross focal deficits to casual conversation. H&P: Results Labs Labs: Short CBC 07/28/24 Range/Units 01:32 WBC 11.7 H (4.5-10.0) K/mm3 Hgb 14.5 D (12.0-15.0) g/dL Hct 42.9 (37.0-47.0) % Plt Count 266 (150-375) k/mm3 BMP 07/28/24 01:32 Sodium 127 L Potassium 4.6 Chloride 91 L Carbon Dioxide 28 BUN 10 Creatinine 0.44 L Glucose 117 H Calcium 8.8 Cardiac Enzymes 07/28/24 Range/Units 01:32 Troponin I < 0.012 (0.000-0.034) ng/mL Liver Function 07/28/24 Range/Units 01:32 Total Bilirubin 0.9 (0.2-1.3) mg/dL AST 33 (14-36) U/L ALT 12 (6-35) U/L Alkaline Phosphatase 101 (38-126) U/L Albumin 4.0 (3.5-5.1) g/dL Assessment and Plan Assessment and plan (1) Asthma exacerbation: Code(s): J45.901 - Unspecified asthma with (acute) exacerbation Status: Acute (2) Acute hypoxic respiratory failure: Code(s): J96.01 - Acute respiratory failure with hypoxia Status: Acute (3) Influenza A: Code(s): J10.1 - Influenza due to other identified influenza virus with other respiratory manifestations Status: Acute Plan Acute hypoxemic respiratory failure on room air at baseline currently on 2 liters oxygen Flu A SOB, and positive for Flu A On Tamiflu Pneumonia presented with worsening SOB WBC 11.7 CXR Airspace opacities in the lower lung zones, consistent with atelectasis versus scarring Blood culture, MRSA pending on Rocephin and Doxycycline monitor Hyponatremia na 127 IVF and monitor Hyomagnesemia Mg 1.6, replaced monitor Persistent severe asthma continue home bronchodilators Hypothyroidism Continue levothyroxine prediabetes A1c 5.9 monitor DVT prophylaxis on
[2024-07-28] MEDS: MAGNESIUM SULF 2 GM/WATER 50ML 2 GM/50 ML BAG IVPB (11:27)
[2024-07-28] MEDS: OSELTAMIVIR PHOSPHATE 75 MG CAPSULE PO ×2 (11:27→21:44)
[2024-07-28] MEDS: SODIUM CHLORIDE 0.9% IV 1,000 ML 75 ML IV CONT ×2 (11:27→23:59)
[2024-07-28] MEDS: ENOXAPARIN 40 MG/0.4 ML SYRINGE SUB-Q (12:04)
--- NOTE | 2024-07-28 17:37 | PC.NURSE ---
pt had local allergic reaction to doxycycline that was infusing. Antibiotics stopped and EDP Dr Hernandez notified. No trouble breathing or resp distress. Pt has reddened area, rash local to right arm at IV site, itching noted. Dr Hernandez gave VORB for 50mg IVP Benadryl. IV site dc'd, new IV placed.
[2024-07-28] MEDS: diphenhydrAMINE HCl INJ 50 MG/ML VIAL IV PUSH (17:43)
--- NOTE | 2024-07-28 18:01 | ADMGEN ---
This patient, Kristin Townsend, was admitted to 2 Medical Room 252-01. Patient/family oriented to hospital policies and general routines including ID bracelet, bed and alarms, visiting hours, pain management, procedures, bathroom and other care routines, personal items, smoking policy, room service/diet, and visiting hours. Information on how to activate the Rapid Response Team has been discussed. Patient/Family are encouraged to report perceived risks to care and to ask questions if they do not understand what they are told or what they should do.
[2024-07-28] MEDS: ALBUTEROL SULFATE (*SP) AEROSOL 1 PUFF 2 PUFF INHALATION (19:58)
[2024-07-28] MEDS: MELATONIN 5 MG TABLET 10 MG PO (21:44)
[2024-07-28] MEDS: MONTELUKAST SODIUM 10 MG TABLET PO (23:26)
[2024-07-29] VITALS (11 sets, daily range): BP systolic 133–179; BP diastolic 64–88; PULSE 99–136; RESP 20–35; TEMP 36.6–37; O2SAT 90–96
[2024-07-29] MEDS: LEVOTHYROXINE SODIUM 50 MCG TABLET PO (06:20)
[2024-07-29] MEDS: UMECLIDINIUM BROMIDE 62.5 MCG ELLIPTA 1 PUFF INHALATION (07:04)
[2024-07-29] MEDS: SALMETEROL XINAFOATE 50 MCG DISKUS 1 PUFF INHALATION (07:04)
[2024-07-29] MEDS: FLUTICASONE PROP 44 MCG (*SP) 10.6 GM 4 PUFF INHALATION (07:04)
[2024-07-29] MEDS: ALBUTEROL SULFATE (*SP) AEROSOL 1 PUFF 2 PUFF INHALATION ×3 (07:05→14:56)
[2024-07-29 09:09] LABS: Alanine Aminotransferase 14 U/L (6-35); Albumin Level 3.9 g/dL (3.5-5.1); Alkaline Phosphatase 93 U/L (38-126); Anion Gap 9 mmol/L (4-12); Aspartate Amino Transferase 20 U/L (14-36); Bilirubin,Total 0.6 mg/dL (0.2-1.3); Blood Urea Nitrogen 7 mg/dL (7-17); Calcium 8.6 mg/dL (8.4-10.2); Carbon Dioxide 25 mmol/L (22-30); Chloride 94 mmol/L (98-107); Estimated CRCL calculation 91 ml/min; Estimated Glomerular Filt Rate > 60; Glucose 116 mg/dL (65-110); Potassium 3.7 mmol/L (3.4-5.0); Sodium 128 mmol/L (137-145)
--- NOTE | 2024-07-29 09:23 | P.PNIM_ITS ---
Progress Note: A&P Assessment and Plan (1) Asthma exacerbation: Code(s): J45.901 - Unspecified asthma with (acute) exacerbation Status: Acute (2) Acute hypoxic respiratory failure: Code(s): J96.01 - Acute respiratory failure with hypoxia Status: Acute (3) Influenza A: Code(s): J10.1 - Influenza due to other identified influenza virus with other respiratory manifestations Status: Acute Plan Acute hypoxemic respiratory failure resolved currently on room air Flu A SOB, and positive for Flu A On Tamiflu Pneumonia presented with worsening SOB WBC 11.7 CXR Airspace opacities in the lower lung zones, consistent with atelectasis versus scarring Blood culture, MRSA pending on Rocephin and Doxycycline monitor Hyponatremia na 128 on Salt tablets Hyomagnesemia Mg 1.6, replaced monitor Persistent severe asthma continue home bronchodilators Hypothyroidism Continue levothyroxine prediabetes A1c 5.9 monitor DVT prophylaxis on Sq Lovevox PT/OT for discharge disposition Subjective Date/time seen: 07/29/24 09:23 Interval history: Patient comfortable at bedside Review of Systems Review of Systems: All other systems were reviewed adn negative except as noted in the HPI above Exam Narrative: General: comfortable at bedside HEENT: Normocephalic, atraumatic. PERRL, EOMI. Sclera anicteric. Oral mucosa moist. Neck: Supple. No JVD or lymphadenopathy. Respiratory: bilateral wheezing Cardiovascular: Tachycardic with S1-S2. Gastrointestinal: Abdomen is soft, nontender, and nondistended with positive bowel sounds. Skin: Warm and dry. No rash or lesions on limited exam. Extremities: No cyanosis, clubbing, or edema. Radial and pedal pulses intact. Neurological: Alert. Cranial nerves 2-12 are grossly intact. No gross focal deficits to casual conversation. Objective Data Vital Signs Vital Signs: Vital Signs - 24 hr 07/28/24 09:34 07/28/24 11:32 07/28/24 13:18 Temperature 100.1 F H Pulse Rate 104 H 103 H 92 Respiratory Rate 18 55 H 19 Blood Pressure 148/65 H 135/70 Pulse Oximetry 92 93 Oxygen Delivery 07/28/24 14:31 07/28/24 17:00 07/28/24 20:00 Temperature Pulse Rate 90 94 Respiratory Rate 18 Blood Pressure 149/68 H 109/57 L Pulse Oximetry 95 95 Oxygen Delivery Room Air 07/28/24 20:00 07/28/24 20:04 07/28/24 20:15 Temperature 98.3 F Pulse Rate 101 H 100 100 Respiratory Rate 20 Blood Pressure 127/64 Pulse Oximetry 92 90 Oxygen Delivery Room Air 07/29/24 00:00 07/29/24 03:58 07/29/24 04:00 Temperature 98.6 F Pulse Rate 102 H 99 99 Respiratory Rate 20 Blood Pressure 133/64 Pulse Oximetry 90 Oxygen Delivery 07/29/24 07:05 07/29/24 07:05 Temperature Pulse Rate 104 H 104 H Respiratory Rate 20 20 Blood Pressure Pulse Oximetry 92 Oxygen Delivery Room Air Intake/Output Intake/Output: Intake & Output 07/26/24 07/27/24 07/28/24 07/29/24 23:59 23:59 23:59 23:59 Intake Total 248.3 350 Output Total 750 Balance 248.3 -400 Meds/Results Medications: Active Medications Generic Name Dose Route Start Last Admin Trade Name Freq PRN Reason Stop Dose Admin Albuterol 2 puff 07/28/24 08:16 07/29/24 07:05 Albuterol Sulfate (*Sp) Aerosol 1 Puff INHALATION 2 puff Q4HRT PRN Administration shortness of breath or wheezing Albuterol/Ipratropium 3 ml 07/28/24 09:37 Ipratropium 0.5 Mg/Albuterol Sulfate 2.5 Mg Ampul.Neb 3 Ml INHALATION Q6HRT PRN Wheezing Calcium Carbonate 1,000 mg 07/28/24 09:00 07/28/24 17:07 Calcium Carbonate (Oscal) 500 Mg Tablet PO 1,000 mg BID BRUNILDA Administration Enoxaparin Sodium 40 mg 07/28/24 11:45 07/28/24 12:04 Enoxaparin 40 Mg/0.4 Ml Syringe SUB-Q 40 mg DAILY BRUNILDA Administration Fluticasone Propionate 4 puff 07/28/24 08:40 07/29/24 07:04 Fluticasone Prop 44 Mcg (*Sp) 10.6 Gm INHALATION 4 puff Q12HRT BRUNILDA Administration Ceftriaxone Sodium 1 gm in 50 mls @ 100 mls/hr 07/29/24 04:00 07/29/24 05:23 Rocephin 1 Gm/Ns 50 Ml IVPB Infused Q24H BRUNILDA Infusion Sodium Chloride 1,000 mls @ 75 mls/hr 07/28/24 23:52 07/28/24 23:59 Normal Saline Iv IV CONT 07/29/24 13:11 75 mls/hr .[id number] ONE Administration Levothyroxine Sodium 50 mcg 07/28/24 08:35 07/29/24 06:20 Levothyroxine Sodium 50 Mcg Tablet PO 50 mcg DAILY@0630 BRUNILDA Administration Melatonin 10 mg 07/28/24 21:00 07/28/24 21:44 Melatonin 5 Mg Tablet PO 10 mg QHS BRUNILDA Administration Montelukast Sodium 10 mg 07/28/24 22:45 07/28/24 23:26 Montelukast Sodium 10 Mg Tablet PO 10 mg HS BRUNILDA Administration Multivitamins Therapeutic 1 tablet 07/28/24 09:00 07/28/24 09:04 Multivitamins Therapeutic Tab (*Bkc) PO 1 tablet DAILY BRUNILDA Administration Oseltamivir Phosphate 75 mg 07/28/24 11:20 07/28/24 21:44 Oseltamivir Phosphate 75 Mg Capsule PO 08/02/24 11:19 75 mg Q12HR BRUNILDA Administration Pantoprazole Sodium 40 mg 07/28/24 09:00 07/28/24 09:04 Pantoprazole 40 Mg Tablet PO 08/27/24 08:59 40 mg DAILY BRUNILDA Administration Psyllium Hydrophilic Mucilloid 1 packet 07/28/24 09:00 07/28/24 10:00 Psyllium Powder Packet PO Not Given DAILY BRUNILDA Salmeterol Xinafoate 1 puff 07/28/24 08:20 07/29/24 07:04 Salmeterol Xinafoate 50 Mcg Diskus INHALATION 1 puff Q12HRT BRUNILDA Administration Umeclidinium [place] 1 puff 07/28/24 08:35 07/29/24 07:04 Umeclidinium [place] 62.5 Mcg Ellipta INHALATION 1 puff DAILYRT BRUNILDA Administration Vitamin D 1,000 units 07/28/24 09:00 07/28/24 10:01 Cholecalciferol 1,000 Units Tablet PO 1,000 units DAILY BRUNILDA Administration Radiology Results: ITS Impressions Chest X-Ray 07/28/24 06:16 IMPRESSION: 1. Airspace opacities in the lower lung zones, consistent with atelectasis versus scarring. 2. Cardiomegaly. Labs Labs: Laboratory Results - last 24 hr 07/29/24 08:30 Sodium 128 L Potassium 3.7 Chloride 94 L Carbon Dioxide 25 Anion Gap 9 BUN 7 Creatinine 0.32 L Estim Creat Clear Calc 91 Estimated GFR > 60 Glucose 116 H Calcium 8.6 Total Bilirubin 0.6 AST 20 ALT 14 Alkaline Phosphatase 93 Total Protein 7.0 Albumin 3.9
[2024-07-29] MEDS: CHOLECALCIFEROL 1,000 UNITS TABLET 1000 UNITS PO (10:21)
[2024-07-29] MEDS: MULTIVITAMINS THERAPEUTIC TAB (*BKC) 1 TABLET PO (10:22)
[2024-07-29] MEDS: CALCIUM CARBONATE (OSCAL) 500 MG TABLET 1000 MG PO (10:22)
[2024-07-29] MEDS: PANTOPRAZOLE 40 MG TABLET PO (10:22)
[2024-07-29] MEDS: OSELTAMIVIR PHOSPHATE 75 MG CAPSULE PO (10:22)
[2024-07-29] MEDS: ENOXAPARIN 40 MG/0.4 ML SYRINGE SUB-Q (10:22)
[2024-07-29] MEDS: SODIUM CHLORIDE 1 GM TABLET PO ×2 (10:38→13:07)
[2024-07-29] MEDS: predniSONE 20 MG TABLET 40 MG PO (11:48)
[2024-07-29] MEDS: levoFLOXacin 750 MG/D5W 150 ML 750 MG/150 ML BAG 100 MG IVPB (11:48)
[2024-07-29] MEDS: FUROSEMIDE INJ 40 MG/4 ML VIAL 20 MG IV PUSH (12:03)
[2024-07-29 12:11] LABS: Alveolar/Arterial O2 Gradient 89.1 mmHg; Base Excess ABG 1.4 mEq/l (+/-2.0); Fractional Inspired Oxygen 32 %; HCO3 ABG 26.7 mEq/l (22.0-26.0); Oxygen Content ABG 20.9 %vol (16.0-22.0); Oxygen Saturation ABG 96.6 % (95.0-100.0); Oxyhemoglobin 95.7 % THb (90.0-100.0); PCO2 ABG 44.3 mmHg (35.0-45.0); PO2 ABG 87.2 mmHg (80.0-100.0); PO2 FiO2 Ratio Arterial Blood 2.72 %; Total Hemoglobin 15.5 g/dL (12.0-18.0); pH ABG 7.398 (7.350-7.450)
[2024-07-29 12:12] LABS: Device NASAL CANNULA; Modified Allen's Test Pass; Site Drawn RIGHT RADIAL
--- NOTE | 2024-07-29 14:42 | ECG_ITS ---
Test Date: 2024-07-29 14:52:38 Measurements Intervals [place] Rate: 138 P: 67 MI: 110 QRS: 54 QRSD: 140 T: -57 QT: 298 QTc: 452 Interpretive Statements SINUS TACHYCARDIA WITH OCCASIONAL VENTRICULAR PREMATURE COMPLEXES LEFT BUNDLE BRANCH BLOCK BASELINE ARTIFACT- I, II, III, AVR, AVL, AVF, V4-V6 ABNORMAL ECG Compared to ECG 07/28/2024 01:41:43 HEART RATE HAS INCREASED Electronically Signed On 07-29-2024 15:21:21 [employer] [employer] by Marco Callahan D.O.
--- NOTE | 2024-07-29 15:09 | P.PNCROSS_ITS ---
Event Note Event Note Event Note: I was called due the patient was hyperventilating and increased HR. I reviewed the EKG, which shows a rate of 140 due to SVT. Her BP was adequate, and ordered Metoprolol 2.5 mg IV x 1. I also ordered troponin, lactic acid, and CRP before my arrival. I was informed that the patient refused all the labs. I went to her, and the patient reported she didn't want to continue this ordeal and wanted to leave this world peacefully. I explained about the option of intubation and othe r measures, but they denied intubation and insisted on leaving this world peacefully. Then I called Nurse Diana PALMA, and we both explained in detail what comfort care measures, including the possibility of . She fully understands and opts for comfort care. We acknowledged her wishes and asked if she wanted me to talk to any family member and update them on her condition, but she denied my request.Also she wanted to change her code status to DNR.
--- NOTE | 2024-07-31 13:19 | PM.DDS ---
Discharge Summary Date and Time Date of : 07/29/24 Time of : 16:45 Provider Pronounced By: 2 RNs Name of First RN That Pronounced: Apolonia Taylor RN Name of Second RN That Pronounced: Diana Zhu RN Probable Cause of Probable Cause of : Acute hypoxemic respiratory failure Supraventricular tachycardia Influenza A Summary Hospital Course: 84 yo female with PMH of Cervical cancer, hypothyroidism, prediabetes, Severe persistent asthma and Vit D deficiency who presented to the ER with worsening SOB and cough. Patient stated that she has chronic SOB and wheezing from persistent asthma however she stated she started having worsening SOB and cough yesterday. Noted yellowish sputum. Denies any chest pain, vomiting, abd pain or diarrhea. No falls or loss of consciousness. ER eval notable MT 104, RR 20, BP 142/80 saturating 94% on 2 liters. CXR airspace opacities in the lower lung zones, consistent with atelectasis versus scarring, cardiomegaly labs WBA 11.7, abg 7.456/32.9/70.2, Na 127. Patient was started on Tamiflu and antibiotics, patient was initially on oxygen but was weaned down to room air. Patient went into SVT and was given Metoprolol IV, however patient and family opted for comfort care. Patient was made comfort care and later passed at 1645. Family were present. Additional Data Confirmation of as documented by pronouncing clinician: Pupillary Reflex, Palpable Pulses, Response to Stimuli, Heart Tones and Breath Sounds Name of Provider Notified: Dr. Solis Time Provider Notified: 16:50 Provider Requests Autopsy: No Family Requests Autopsy: No Stamping Mill Tender Notified: Yes Date [facility] Notified of : 07/29/24 Time [facility] Notified of : 17:38
== END 2024-07-29 16:45 | disposition expired | DRG 193 ==
LOC: ANHED 02:42 → ANH3MEDSUR 02:48 → ANH2MED 17:04
PROVIDERS: Admitting Provider Internal Medicine; Emergency Provider Physician Assistant; PCP Family Medicine; Visit Provider Internal Medicine
DX: J10.00 Influenza due to other identified influenza virus with unspecified type of pneumonia (principal); J96.01 Acute respiratory failure with hypoxia; J45.51 Severe persistent asthma with (acute) exacerbation; E87.1 Hypo-osmolality and hyponatremia; I47.10 Supraventricular tachycardia, unspecified; Z66 Do not resuscitate; E03.9 Hypothyroidism, unspecified; R73.03 Prediabetes; K21.9 Gastro-esophageal reflux disease without esophagitis; M81.0 Age-related osteoporosis without current pathological fracture; E55.9 Vitamin D deficiency, unspecified; Z85.41 Personal history of malignant neoplasm of cervix uteri; Z96.1 Presence of intraocular lens; Z98.49 Cataract extraction status, unspecified eye; Z90.710 Acquired absence of both cervix and uterus; Z87.891 Personal history of nicotine dependence
CPT/HCPCS: 36415; 36600; 71045; 71275; 80053; 82805; 83735; 83880; 84484; 85018; 85025; 85380; 85610; 85730; 87040; 87637; 93005; 94640; 96365; 96367; 96375; 96376; 99285; A9270; G0378; J0696; J1200; J1650; J1940; J1956; J2919; J3475; J7030; J7512; Q9967